=== PATIENT | male | born 1935 | race Caucasian/White ===

== ENCOUNTER 2017-01-27 06:54 | Outpatient (CLI) | payer MEDICARE, OTHER ==
[2017-01-27 07:40] LABS: ALBUMIN/GLOBULIN RATIO 1.5 (1.0-2.2); BILIRUBIN,TOTAL 0.9 mg/dL (0.2-1.0); CALCIUM 9.1 mg/dL (8.5-10.3); CREATININE 1.1 mg/dL (0.6-1.2); POTASSIUM 4.4 mmol/L (3.5-5.0); TOTAL PROTEIN 6.8 g/dL (6.7-8.2)
[2017-01-27] MEDS ORDERED: GADOBUTROL 10 MMOL/10 ML SYRINGE IVP ONE (09:23)
--- NOTE | 2017-01-27 10:06 | MRI Preliminary Report ---
Exam: MRI Brain W/WO IMPRESSION: 1. Extensive bilateral holohemispheric subdural hematoma. This is seen peripheral to the cerebral hem ispheres and in a parafalcine location bilaterally. Additionally bilateral posterior fossa subdural h ematomas are seen beneath the tentorium. This is slightly thicker on the left measuring up to 9 mm. A ppearance primarily suggests subacute hemorrhage, although there are layering fluid levels on the lef t side and acute bleeding is not excludable. -Mild, 5 mm, [id number] midline shift is seen. 2. Increased FLAIR signal seen in the sulci over the high convexity bilaterally. This may be due to p oor CSF flow versus hemorrhagic or proteinaceous debris within the CSF. 3. Patchy white matter signal abnormality in the cerebral hemispheres and brainstem. Findings are non specific but typically secondary to small vessel ischemic change. Critical test: With the layering fluid levels in the subdural hematoma, the possibility of active ble eding is not excludable. Therefore the patient is being sent to the emergency Department. The finding s are discussed with referring treating physician, Dr. Maya, on 01/27/2017 at 1004 hrs.. [facility] SITE ID: [id number]
--- NOTE | 2017-01-27 10:09 | MRI Report ---
EXAM: MRI BRAIN WITHOUT AND WITH CONTRAST EXAM DATE: 01/27/2017 09:35 AM. CLINICAL HISTORY: TRANSIENT CEREBRAL ISCHEMIA. TIA symptoms. 3 episodes of left-sided weakness, last approximately 2 weeks ago. COMPARISON: MRA of the head the 2016. TECHNIQUE: Multiplanar, multisequence T1-weighted and fluid-sensitive MR sequences of the brain were performed. Sequences optimized for routine evaluation. Other: None. Without and with IV Contrast: 10 cc Gadavist. FINDINGS: Brain Volume: Normal for age. Parenchyma/Dura: No masses, infarcts, or intra-axial hemorrhage. Mild diffuse patchy T2 and FLAIR jodee ght signal is seen throughout the cerebral hemispheres and centrally in the mid and lower pauly. No ab normal parenchymal enhancement. Ventricles/Cisterns: Extensive bilateral as well as infratentorial subdural hematomas are present. Se ptated subdural hematomas are seen in a holohemispheric location peripherally about the cerebral babak spheres and in a high parafalcine location bilaterally. On the left this measures up to approximately 9 mm in thickness and on the right 7.5 mm. Predominant diffuse T1 hyperintensity is seen. Peripheral linear enhancement is seen along the surface of the inner table of the skull. Heterogeneous T2 signa l is seen. Areas of hyperintense, isointense, and hypointense signal is present. Layering fluid level s are seen involving left-sided subdural collection. Mild, approximately 5 mm, [id number]-rt-[id number] midline shift is seen. Infratentorial involvement is seen beneath the tentorium bilaterally. On the right thi s measures approximately 4 mm in thickness and on the left 5 mm in thickness. Subtle mild inferior ex tension into the posterior CPA cistern is seen as well. No significant posterior fossa mass effect is appreciated, although there is effacement of the superior cerebellar hemispheres. No hydrocephalus. No intraventricular hemorrhage. On FLAIR imaging increased signal is seen within sulci over the high convexities bilaterally. No asso ciated signal abnormality or enhancement is seen in this region on any other pulse sequence. This cou ld be secondary to poor flow of CSF rather than indicative of hemorrhagic or proteinaceous debris wit hin the CSF. CSF signal intensity on FLAIR sequence at the skull base is unremarkable. Orbits: Note is made of bilateral lens removal. The globes, optic nerve sheath complex, extraocular m uscles, and orbital fat are unremarkable. Sella turcica: The pituitary gland, cavernous sinuses, suprasellar cistern, and optic chiasm are unre markable. IAC: The internal auditory canals are symmetric and unremarkable. Vasculature: Normal signal flow void is seen in the major arterial structures at the skull base. The dural sinuses are patent and enhance normally. The left transverse sinus and jugular bulb are dominan t. Sinuses: No sinusitis evident. Bones: The skull is intact. Other: Note is made of a 12 mm cystic focus in the superior posterior aspect of the right parotid gla nd. IMPRESSION: 1. Extensive bilateral holohemispheric subdural hematoma. This is seen peripheral to the cerebral hem ispheres and in a parafalcine location bilaterally. Additionally bilateral posterior fossa subdural h ematomas are seen beneath the tentorium. This is slightly thicker on the left measuring up to 9 mm. A ppearance primarily suggests subacute hemorrhage, although there are layering fluid levels on the lef t side and acute bleeding is not excludable. -Mild, 5 mm, rrqk-[id number] midline shift is seen. 2. Increased FLAIR signal seen in the sulci over the high convexity bilaterally. This may be due to p oor CSF flow versus hemorrhagic or proteinaceous debris within the CSF. 3. Patchy white matter signal abnormality in the cerebral hemispheres and brainstem. Findings are non specific but typically secondary to small vessel ischemic change. Critical test: With the layering fluid levels in the subdural hematoma, the possibility of active ble eding is not excludable. Therefore the patient is being sent to the emergency Department. The finding s are discussed with referring treating physician, Dr. Maya, on 01/27/2017 at 1004 hrs.. [facility] Referring Provider Line: [phone] SITE ID: [id number]
--- NOTE | 2017-01-27 10:09 | MRI Preliminary Report ---
Exam: MRI Angio Brain W/O (MRA) IMPRESSION: 1. Unremarkable brain MRA. No stenoses or aneurysms. [facility] SITE ID: [id number]
--- NOTE | 2017-01-27 10:12 | MRI Report ---
EXAM MRA BRAIN EXAM DATE: 01/27/2017 07:54 AM. CLINICAL HISTORY: TRANSIENT CEREBRAL ISCHEMIA. COMPARISON: None. TECHNIQUE: Multiplanar, multisequence MRA sequences of the brain were performed. Other: None. Post-pr ocessing: Multiplanar 3D MIP reconstructions. IV Contrast: None. FINDINGS: RIGHT Internal Carotid (ICA): No aneurysm, stenosis or anomaly. Middle Cerebral (MCA): No aneurysm, stenosis or anomaly. Anterior Cerebral (BECK): No aneurysm, stenosis or anomaly. Posterior Cerebral (WELL DRILL OPERATOR HELPER CABLE TOOL): No aneurysm, stenosis or anomaly. Posterior Communicating (P-COM): Not visualized. Vertebral: No aneurysm, stenosis or anomaly in the visualized upper vertebral artery. LEFT Internal Carotid (ICA): No aneurysm, stenosis or anomaly. Middle Cerebral (MCA): No aneurysm, stenosis or anomaly. Anterior Cerebral (BECK): No aneurysm, stenosis or anomaly. Posterior Cerebral (WELL DRILL OPERATOR HELPER CABLE TOOL): No aneurysm, stenosis or anomaly. Posterior Communicating (P-COM): Not visualized. Vertebral: No aneurysm, stenosis or anomaly in the visualized upper vertebral artery. Artifact signal drop off is seen in the V4 segment secondary to tortuosity. MIDLINE Anterior Communicating (A-COM): No aneurysm, stenosis or anomaly. Basilar artery: No aneurysm, stenosis or anomaly. Other: Bilateral supratentorial and infratentorial subdural hematomas are evident (see report of viry morales MRI done at the same time). IMPRESSION: 1. Unremarkable brain MRA. No stenoses or aneurysms. [facility] Referring Provider Line: [phone] SITE ID: [id number]
== END 2017-01-27 06:55 | disposition home or self-care (01) ==
LOC: LAB 06:54
PROVIDERS: ATTEND Family Medicine
DX: I62.00 Nontraumatic subdural hemorrhage, unspecified (principal)
CPT/HCPCS: 36415; 70544; 70553; 80053

== ENCOUNTER 2017-01-27 09:51 | Emergency (ER) | payer MEDICARE, OTHER ==
[2017-01-27] MEDS ORDERED: LOSARTAN 50 MG TABLET PO STA (10:28)
[2017-01-27] MEDS ORDERED: DOXAZOSIN 1 MG TABLET PO STA (10:29)
--- NOTE | 2017-01-27 10:30 | ED Physician Documentation ---
History of Present Illness - Stated complaint Stated Complaint: F/U MRI - Chief complaint Chief Complaint: Neuro - History obtained from History obtained from: Patient, Family - History of Present Illness Timing: Today - Additonal information Additional information: 81 y/o male with a history of diabetes and hypertension on coumadin for afib has had TIA symptoms 2 weeks ago and again 8 days ago. He has had his INR checked and it was OK and his doctor ordered a brain MRA and MRI and the MRI shows extensive bilateral subdural that appears subacute but with one area of layering consistent with acute bleeding. The patient was here for the MRI scan and was transferred to the ED with the results. He notes that he feels he recovered from the TIA and has not developed new symptoms. 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 He recalls that prior to the onset of symptoms he had been sanding out on his deck for an extended period of time. He notes that he has also had a surgical procedure done at the end of December with a ventral hernia repair. Review of Systems Constitutional: reports: Fatigue. denies: Fever, Chills, Myalgias Eyes: denies: Decreased vision Ears: denies: Ear pain Nose: denies: Congestion Throat: denies: Sore throat Cardiac: denies: Chest pain / pressure, Palpitations Respiratory: denies: Dyspnea, Cough GI: denies: Abdominal Pain, Nausea, Vomiting, Constipation, Diarrhea : denies: Dysuria, Frequency Skin: denies: Rash Musculoskeletal: reports: Neck pain (chronically), Back pain Neurologic: denies: Generalized weakness, Focal weakness, Numbness, Head injury , LOC PD PAST MEDICAL HISTORY - Past Medical History Cardiovascular: Hypertension, Atrial fibrillation Respiratory: None Neuro: None Endocrine/Autoimmune: None Psych: None Musculoskeletal: Osteoarthritis, Other - Present Medications Home Medications: Ambulatory Orders Medication Instructions Recorded Confirmed Allopurinol 2 tab ORAL DAILY 04/28/14 01/27/17 Doxazosin [Cardura] 8 mg ORAL DAILY 04/28/14 01/27/17 Furosemide 40 mg ORAL DAILY 04/28/14 01/27/17 Gabapentin 600 mg ORAL QPM 04/28/14 01/27/17 Losartan [Cozaar] 50 mg ORAL DAILY 04/28/14 01/27/17 Simvastatin 10 mg ORAL DAILY 04/28/14 01/27/17 Spironolactone 25 mg ORAL DAILY 04/28/14 01/27/17 Warfarin [Coumadin] 0 tab PO DAILY 01/27/17 01/27/17 - Allergies Allergies/Adverse Reactions: Allergies Allergy/AdvReac Type Severity Reaction Status Date / Time No Known Drug Allergies Allergy Verified 01/27/17 09:57 - Social History Does the pt smoke?: No Smoking Status: Unknown if ever smoked PD ED PE NORMAL - Vitals Vital signs reviewed: Yes (normal ) - General General: No acute distress, Well developed/nourished - HEENT HEENT: Atraumatic, PERRL, EOMI, Ears normal, Moist mucous membranes - Neck Neck: Supple, no meningeal sign, No bony TTP - Cardiac Cardiac: Other (irregularly irregular ) - Respiratory Respiratory: No respiratory distress, Clear bilaterally - Abdomen Abdomen: Soft, Non tender - Back Back: No CVA TTP, No spinal TTP - Derm Derm: Normal color, No rash - Extremities Extremities: No deformity, No edema - Neuro Neuro: Alert and oriented X 3, setter off 2-12 intact, No motor deficit, No sensory deficit, Normal speech - Psych Psych: Normal mood, Normal affect Results - Vitals Vitals: Vital Signs - 24 hr 01/27/17 01/27/17 01/27/17 09:55 10:00 11:45 Temperature 36.4 C L Heart Rate 89 71 50 L Respiratory 18 16 18 Rate Blood Pressure 118/72 154/80 H 139/90 H O2 Saturation 99 96 97 Oxygen O2 Source Room air - EKG (time done) 1008 Rhythm: Atrial fibrillation Intervals: Wide QRS Ischemia: Q waves Compare to prior EKG: Old EKG unavailable Computer interpretation: Agree with computer - Labs Labs: Laboratory Tests 01/27/17 01/27/17 01/27/17 10:30 10:30 10:30 WBC 8.6 RBC 4.00 L Hgb 13.6 L Hct 39.9 L MCV 99.8 H MCH 34.0 H MCHC 34.0 RDW 13.8 Plt Count 167 MPV 8.9 Neut # 5.9 Lymph # 1.8 Walker # 0.6 Eos # 0.1 Baso # 0.1 Absolute Nucleated RBC 0.00 Nucleated RBCs 0.0 PT 24.0 H INR 2.1 H Sodium 137 Potassium 4.4 Chloride 102 Carbon Dioxide 27 Anion Gap 8.0 BUN 33 H Creatinine 1.0 Estimated GFR (MDRD) 72 L Glucose 102 H Calcium 9.2 Total Bilirubin 1.1 H AST 20 ALT 24 Alkaline Phosphatase 77 Troponin I Total Protein 6.8 Albumin 4.1 Globulin 2.7 Albumin/Globulin Ratio 1.5 Lipase 39 01/27/17 10:30 WBC RBC Hgb Hct MCV MCH MCHC RDW Plt Count MPV Neut # Lymph # Walker # Eos # Baso # Absolute Nucleated RBC Nucleated RBCs PT INR Sodium Potassium Chloride Carbon Dioxide Anion Gap BUN Creatinine Estimated GFR (MDRD) Glucose Calcium Total Bilirubin AST ALT Alkaline Phosphatase Troponin I < 0.04 Total Protein Albumin Globulin Albumin/Globulin Ratio Lipase - Rads (name of study) MRI head Radiology: Prelim report reviewed, See rad report (extensive bilateral holohemispheric subdural hematoma. see details of report) brain MRA Radiology: Prelim report reviewed (Impression: 1. Unremarkable brain MRI. No stenosis or aneurysms.), EMP read indepedently, See rad report Procedures - IVC sono (time) 1200 Bedside IVC sono: IVC measures (cm) (1.62), Euvolemia, Other (The right ventrical is enlarged consistent with pulmonary hypertension and the vessle does not collapse much with respiration.) PD MEDICAL DECISION MAKING - ED course Complexity details: reviewed old records, reviewed results, re-evaluated patient , considered differential, d/w patient, d/w family ED course: 81 y/o male on coumadin for afib has had recent TIA and has acute on subacute hemorrhage intracranially. He has a normal neuro exam today here in the ED. The transfer center at [facility] is consulted by phone and recommends administration of kcentra and transfer by [facility]. The patient is agreeable and without deficit. Departure - Departure Disposition: 02 Transfer Acute Care Hosp Clinical Impression: Intracranial hemorrhage
[2017-01-27] MEDS ORDERED: DOXAZOSIN 4 MG TABLET PO STA (10:33)
[2017-01-27 10:44] LABS: BASOPHILS # (AUTO) 0.1 10^3/uL (0.0-0.1); BASOPHILS % (AUTO) 0.8 %; EOSINOPHILS # (AUTO) 0.1 10^3/uL (0.0-0.7); EOSINOPHILS % (AUTO) 1.6 %; HCT - HEMATOCRIT 39.9 % (42.0-52.0); HGB - HEMOGLOBIN 13.6 g/dL (14.0-18.0); LYMPHOCYTES # (AUTO) 1.8 10^3/uL (1.5-3.5); LYMPHOCYTES % (AUTO) 21.5 %; MEAN CORPUSCULAR VOLUME 99.8 fL (80.0-94.0); MEAN PLATELET VOLUME 8.9 fL (7.4-11.4); MONOCYTES # (AUTO) 0.6 10^3/uL (0.0-1.0); MONOCYTES % (AUTO) 7.1 %; NEUTROPHILS # (AUTO) 5.9 10^3/uL (1.5-6.6); RED CELL DISTRIBUTION WIDTH 13.8 % (12.0-15.0); UNCORRECTED WHITE BLOOD COUNT 8.6 x10^3/uL; WHITE BLOOD COUNT 8.6 x10^3/uL (4.8-10.8)
[2017-01-27 10:50] LABS: INR 2.1 (0.8-1.2)
[2017-01-27 10:55] LABS: ALBUMIN/GLOBULIN RATIO 1.5 (1.0-2.2); BILIRUBIN,TOTAL 1.1 mg/dL (0.2-1.0); CALCIUM 9.2 mg/dL (8.5-10.3); POTASSIUM 4.4 mmol/L (3.5-5.0); TOTAL PROTEIN 6.8 g/dL (6.7-8.2)
[2017-01-27] MEDS ORDERED: PROTHROMBIN COMPLEX CONC 500 UNIT VIAL IVP STA ×2 (11:40→11:54)
[2017-01-27 11:45] VITALS: BP 139/90
== END 2017-01-27 12:18 | disposition short-term general hospital (02) ==
LOC: ED 09:51
DX: I62.01 Nontraumatic acute subdural hemorrhage (principal); I10 Essential (primary) hypertension; I48.91 Unspecified atrial fibrillation; Z79.01 Long term (current) use of anticoagulants; E11.9 Type 2 diabetes mellitus without complications; Z86.73 Personal history of transient ischemic attack (TIA), and cerebral infarction without residual deficits
CPT/HCPCS: 36415; 70544; 70553; 80053; 83690; 84484; 85025; 85610; 86900; 86901; 93005; 96374; 99284; 99285; A9270; A9585; C9132

== ENCOUNTER 2017-03-03 20:50 | Emergency (ER) | payer MEDICARE, OTHER ==
[2017-03-03] MEDS ORDERED: SULFAMETH/TRIMETH DS 800/160 MG TABLET PO STA (21:17)
[2017-03-03] MEDS ORDERED: CEPHALEXIN 250 MG CAPSULE PO STA (21:17)
--- NOTE | 2017-03-03 21:20 | ED Physician Documentation ---
PD HPI LOWER EXT INJURY - Stated complaint Stated Complaint: L FOOT WOUND - Chief complaint Chief Complaint: Wound - History obtained from History obtained from: Patient - History of Present Illness PD HPI LOW EXT INJURY LOCATION: Left (He has a chronic callus which is occasionally being addressed by a lidar scientist. This is on the bottom of the lateral left foot. Today he has had redness and swelling in that area without fever or chills.) Review of Systems Constitutional: denies: Fever, Chills Cardiac: denies: Chest pain / pressure, Palpitations Respiratory: denies: Dyspnea, Cough PD PAST MEDICAL HISTORY - Past Medical History Past Medical History: Yes Cardiovascular: Hypertension, Peripheral Vascular Disease, Atrial fibrillation Respiratory: None Neuro: None Endocrine/Autoimmune: None Psych: None Musculoskeletal: Osteoarthritis, Other - Past Surgical History Past Surgical History: Yes General: Hiatal hernia repair Ortho: Hip replacement, Knee replacement Neuro: Craniotomy HEENT: Tonsil/Adenoidectomy - Present Medications Home Medications: Ambulatory Orders Medication Instructions Recorded Confirmed Allopurinol 2 tab ORAL DAILY 04/28/14 03/03/17 Doxazosin [Cardura] 8 mg ORAL DAILY 04/28/14 03/03/17 Gabapentin 600 mg ORAL QPM 04/28/14 03/03/17 Cephalexin [Keflex] 500 mg PO QID #40 capsule 03/03/17 Magnesium 400 mg PO BID 03/03/17 03/03/17 Simvastatin 5 mg PO QPM 03/03/17 03/03/17 Sulfamethoxazole/Trimethoprim 1 each PO BID 10 Days 03/03/17 [Sulfamethoxazole-Tmp Ds Tablet] - Allergies Allergies/Adverse Reactions: Allergies Allergy/AdvReac Type Severity Reaction Status Date / Time No Known Drug Allergies Allergy Verified 01/27/17 09:57 - Social History Does the pt smoke?: No Smoking Status: Unknown if ever smoked Does the pt drink ETOH?: No Does the pt have substance abuse?: No - Immunizations Immunizations are current?: No Immunizations: TDAP >10years/unknown - POLST Patient has POLST: No PD ED PE NORMAL - Vitals Vital signs reviewed: Yes - General General: Alert and oriented X 3, No acute distress - Extremities Extremities: Other (Underneath the fifth metatarsal head on the plantar surface of the foot there is a callus with surrounding redness, but no purulent material to culture. Cellulitis goes about to the proximal fifth metatarsal.) - Neuro Neuro: Alert and oriented X 3, Normal speech - Psych Psych: Normal mood, Normal affect Results - Vitals Vitals: Vital Signs - 24 hr 03/03/17 20:56 Temperature 36.7 C Heart Rate 83 Respiratory 16 Rate Blood Pressure 172/79 H O2 Saturation 99 Oxygen O2 Source Room air PD MEDICAL DECISION MAKING - ED course ED course: 82-year-old gentleman with left foot cellulitis, limited at this juncture and will start Keflex and Bactrim. Departure - Departure Disposition: Home, Self Care Clinical Impression: Cellulitis of left foot Condition: Good Record reviewed to determine appropriate education?: Yes Instructions: Cellulitis Dc Prescriptions: Cephalexin [Keflex] 500 mg PO QID #40 capsule Sulfamethoxazole/Trimethoprim [Sulfamethoxazole-Tmp Ds Tablet] 1 each PO BID 10 Days Comments: Follow-up with your lidar scientist in 1 week. Return or see her sooner if worsening , not improving, or if running a fever. Your blood pressure was elevated today on check into the emergency department. This does not mean that you have hypertension, it is a common phenomenon to come to the emergency department and have elevated blood pressure. I recommend that she see her primary care physician within the week to have it rechecked when you are feeling better.
[2017-03-03] MEDS ORDERED: CEPHALEXIN 250 MG CAPSULE PO ONE (21:25)
[2017-03-03] MEDS ORDERED: SULFAMETH/TRIMETH DS 800/160 MG TABLET PO ONE (21:25)
[2017-03-03 21:28] VITALS: BP 146/80
== END 2017-03-03 21:34 | disposition home or self-care (01) ==
LOC: ED 20:50
DX: L03.116 Cellulitis of left lower limb (principal); L84 Corns and callosities; I10 Essential (primary) hypertension; I73.9 Peripheral vascular disease, unspecified; I48.91 Unspecified atrial fibrillation; M19.90 Unspecified osteoarthritis, unspecified site
CPT/HCPCS: 99283; A9270

== ENCOUNTER 2017-05-08 09:11 | Outpatient (CLI) | payer MEDICARE, OTHER | END 2017-05-08 09:12 | disposition home or self-care (01) | LOC: LAB.R 09:11 | PROVIDERS: ATTEND Physician Assistant Medical | DX: L03.116 Cellulitis of left lower limb (principal) | CPT/HCPCS: 87070; 87205 ==

== ENCOUNTER 2017-05-10 11:35 | Outpatient (CLI) | payer MEDICARE, OTHER ==
--- NOTE | 2017-05-10 12:33 | CT Report ---
CT BRAIN WITHOUT CONTRAST: 05/10/2017 CLINICAL INDICATION: History of intracranial hemorrhage. COMPARISON: MRI 01/27/2017. TECHNIQUE: Axial CT images of the brain were obtained without contrast. In accordance with CT protocol optimization, one or more of the following dose reduction techniques w ere utilized for this exam: automated exposure control, adjustment of mA and/or KV based on patient size, or use of iterative reconstructive technique. FINDINGS: Postoperative changes are noted in the left calvarium. The previously seen left greater t baez right subdural collections have resolved. Atrophy and chronic ischemic changes are present. No acute hemorrhage, mass effect, or midline shift is present. IMPRESSION: POSTOPERATIVE CHANGES. RESOLUTION OF PREVIOUSLY SEEN SUBDURAL HEMATOMAS. NO ACUTE HEMO RRHAGE. JOB #: [id number] EXT JOB #:[id number]
== END 2017-05-10 11:36 | disposition home or self-care (01) ==
LOC: DI 11:35
PROVIDERS: ATTEND Family Medicine
DX: I62.9 Nontraumatic intracranial hemorrhage, unspecified (principal)
CPT/HCPCS: 70450

== ENCOUNTER 2017-11-13 20:00 | Emergency (ER) | payer MEDICARE, OTHER ==
[2017-11-13 20:09] VITALS: BP 121/110
== END 2017-11-13 20:50 | disposition left against medical advice (07) ==
LOC: ED 20:00
DX: Z53.21 Procedure and treatment not carried out due to patient leaving prior to being seen by health care provider (principal)
CPT/HCPCS: 99281

== ENCOUNTER 2017-12-11 08:00 | Outpatient (CLI) | payer MEDICARE, OTHER ==
[2017-12-11 19:15] LABS: BASOPHILS % (AUTO) 0.8 %; EOSINOPHILS # (AUTO) 0.1 10^3/uL (0.0-0.7); EOSINOPHILS % (AUTO) 1.4 %; LYMPHOCYTES # (AUTO) 1.3 10^3/uL (1.5-3.5); LYMPHOCYTES % (AUTO) 20.9 %; MEAN CORPUSCULAR HEMOGLOBIN 32.7 pg (27.0-31.0); MEAN CORPUSCULAR HGB CONC 32.7 g/dL (32.0-36.0); MEAN CORPUSCULAR VOLUME 100.1 fL (80.0-94.0); MEAN PLATELET VOLUME 10.4 fL (7.4-11.4); MONOCYTES # (AUTO) 0.6 10^3/uL (0.0-1.0); MONOCYTES % (AUTO) 9.1 %; NEUTROPHILS # (AUTO) 4.2 10^3/uL (1.5-6.6); NEUTROPHILS % (AUTO) 67.8 %; PLT - PLATELET COUNT 102 10^3/uL (130-450); RED BLOOD COUNT 4.28 10^6/uL (4.70-6.10); WHITE BLOOD COUNT 6.3 x10^3/uL (4.8-10.8)
[2017-12-11 19:35] LABS: ALBUMIN/GLOBULIN RATIO 1.7 (1.0-2.2); BILIRUBIN,TOTAL 1.5 mg/dL (0.2-1.0); CALCIUM 8.6 mg/dL (8.5-10.3); CREATININE 0.9 mg/dL (0.6-1.2); TOTAL PROTEIN 6.3 g/dL (6.7-8.2)
== END 2017-12-11 08:01 | disposition home or self-care (01) ==
LOC: LAB.WCP 08:00
PROVIDERS: ATTEND Family Medicine
DX: I10 Essential (primary) hypertension (principal); I48.91 Unspecified atrial fibrillation; R60.0 Localized edema
CPT/HCPCS: 36415; 80053; 85025

== ENCOUNTER 2018-11-18 08:00 | Outpatient (CLI) | payer MEDICARE, OTHER ==
[2018-11-18 12:20] LABS: BASOPHILS % (AUTO) 0.5 %; EOSINOPHILS # (AUTO) 0.1 10^3/uL (0.0-0.7); EOSINOPHILS % (AUTO) 1.2 %; HGB - HEMOGLOBIN 13.1 g/dL (14.0-18.0); LYMPHOCYTES # (AUTO) 1.8 10^3/uL (1.5-3.5); LYMPHOCYTES % (AUTO) 21.6 %; MEAN CORPUSCULAR HEMOGLOBIN 34.3 pg (27.0-31.0); MEAN CORPUSCULAR HGB CONC 33.8 g/dL (32.0-36.0); MEAN CORPUSCULAR VOLUME 101.2 fL (80.0-94.0); MEAN PLATELET VOLUME 9.2 fL (7.4-11.4); MONOCYTES # (AUTO) 0.7 10^3/uL (0.0-1.0); MONOCYTES % (AUTO) 8.7 %; NEUTROPHILS # (AUTO) 5.7 10^3/uL (1.5-6.6); PLT - PLATELET COUNT 175 10^3/uL (130-450); RED BLOOD COUNT 3.83 10^6/uL (4.70-6.10); RED CELL DISTRIBUTION WIDTH 13.7 % (12.0-15.0); WHITE BLOOD COUNT 8.3 x10^3/uL (4.8-10.8)
[2018-11-18 13:05] LABS: ALBUMIN/GLOBULIN RATIO 1.4 (1.0-2.2); CALCIUM 8.7 mg/dL (8.5-10.3); CREATININE 1.1 mg/dL (0.6-1.2); TOTAL PROTEIN 6.9 g/dL (6.7-8.2)
== END 2018-11-18 23:59 | disposition home or self-care (01) ==
LOC: LAB.WCP 08:00
PROVIDERS: ATTEND Internal Medicine Cardiovascular Disease
DX: I48.91 Unspecified atrial fibrillation (principal); I42.9 Cardiomyopathy, unspecified
CPT/HCPCS: 36415; 80053; 84443; 85025

== ENCOUNTER 2019-03-26 22:34 | Outpatient (CLI) | payer MEDICARE, OTHER | END 2019-03-26 22:35 | disposition critical access hospital (66) | LOC: EMS 22:34 | PROVIDERS: ATTEND Surgery | DX: R53.1 Weakness (principal) | CPT/HCPCS: A0425; A0429 ==

== ENCOUNTER 2019-03-26 22:48 | Inpatient (IN) | payer MEDICARE, OTHER ==
[2019-03-26] MEDS ORDERED: SODIUM CHLORIDE 0.9% 1,000 ML IV ONE (23:08)
[2019-03-26 23:34] LABS: BASOPHILS % (AUTO) 0.1 %; EOSINOPHILS % (AUTO) 0.1 %; LYMPHOCYTES % (AUTO) 3.9 %; MEAN CORPUSCULAR HEMOGLOBIN 33.7 pg (27.0-31.0); MEAN CORPUSCULAR HGB CONC 32.6 g/dL (32.0-36.0); MEAN CORPUSCULAR VOLUME 103.4 fL (80.0-94.0); MEAN PLATELET VOLUME 10.3 fL (7.4-11.4); MONOCYTES % (AUTO) 6.4 %; NEUTROPHILS % (AUTO) 88.6 %; PLT - PLATELET COUNT 131 10^3/uL (130-450); RED BLOOD COUNT 3.56 10^6/uL (4.70-6.10); RED CELL DISTRIBUTION WIDTH 13.6 % (12.0-15.0); WHITE BLOOD COUNT 22.6 x10^3/uL (4.8-10.8)
[2019-03-26 23:37] LABS: ABNORMAL LYMPHS % (MANUAL) 0 %
[2019-03-26 23:47] LABS: ALBUMIN 3.6 g/dL (3.2-5.5); ALBUMIN/GLOBULIN RATIO 1.4 (1.0-2.2); BILIRUBIN,TOTAL 1.1 mg/dL (0.2-1.0); CALCIUM 8.2 mg/dL (8.5-10.3); CREATININE 1.4 mg/dL (0.6-1.2); TOTAL PROTEIN 6.1 g/dL (6.7-8.2)
[2019-03-26 23:56] LABS: BAND NEUTROPHILS % (MANUAL) 23 %; LYMPHOCYTES # (MANUAL) 0.7 10^3/uL (1.5-3.5); LYMPHOCYTES % (MANUAL) 3 %; METAMYELOCYTES % (MANUAL) 1 %; MONOCYTES # (MANUAL) 0.7 10^3/uL (0.0-1.0); RBC MORPHOLOGY (MULTIPLE) NORMAL APPEARANCE (NORMAL)
[2019-03-26 23:57] LABS: DIFFERENTIAL COMMENT MANUAL DIFFERENTIAL; PLATELET ESTIMATE, MANUAL DECREASED (<130,000) (NORMAL)
[2019-03-27] MEDS ORDERED: SODIUM CHLORIDE 0.9% 1,000 ML IV ONE (00:10)
[2019-03-27] MEDS ORDERED: VANCOMYCIN INJ 1.5 GM in SODIUM CHLORIDE 0.9% 500 ML IV STA (00:11)
[2019-03-27] MEDS ORDERED: PIPERACILLIN/TAZOBACTAM 3.375 GM in SODIUM CHLORIDE 0.9% MINIBAG 100 ML IV STA (00:13)
--- NOTE | 2019-03-27 00:13 | ED Physician Documentation ---
History of Present Illness - Stated complaint Stated Complaint: WEAKNESS - Chief complaint Chief Complaint: Neuro - History obtained from History obtained from: Patient, Family - History of Present Illness Timing: Today Pain level max: 0 Pain level now: 0 - Additonal information Additional information: 84-year-old male states that he had chills today. States he was shaking at home. States that he felt lightheaded like he was going to pass out. States that this is occurred to him before. No chest pain. No palpitations. No headache. No dyspnea. No focal neurological deficits. Nothing makes it better or worse. He states that his legs felt very heavy. Patient states that his initial blood pressure was 60/40 with EMS. Review of Systems Ten Systems: 10 systems reviewed and negative Constitutional: reports: Fever (felt hot today), Chills (rigors at home), Myalgias Nose: denies: Rhinorrhea / runny nose, Congestion Cardiac: denies: Chest pain / pressure Respiratory: denies: Cough GI: denies: Vomiting Skin: denies: Rash Musculoskeletal: denies: Neck pain, Back pain Neurologic: denies: Headache PD PAST MEDICAL HISTORY - Past Medical History Past Medical History: Yes Cardiovascular: Hypertension, High cholesterol, Peripheral Vascular Disease, Atrial fibrillation Respiratory: None Endocrine/Autoimmune: None Psych: None Musculoskeletal: Osteoarthritis, Other - Past Surgical History Past Surgical History: Yes General: Hiatal hernia repair Ortho: Hip replacement, Knee replacement Neuro: Craniotomy HEENT: Tonsil/Adenoidectomy - Present Medications Home Medications: Ambulatory Orders Medication Instructions Recorded Confirmed Allopurinol 2 tab ORAL DAILY 04/28/14 03/03/17 Doxazosin [Cardura] 8 mg ORAL DAILY 04/28/14 03/03/17 Magnesium 400 mg PO BID 03/03/17 03/03/17 Simvastatin 20 mg PO QPM 03/03/17 03/03/17 Furosemide 50 mg PO DAILY 03/26/19 03/26/19 Warfarin [Coumadin] 03/26/19 - Allergies Allergies/Adverse Reactions: Allergies Allergy/AdvReac Type Severity Reaction Status Date / Time No Known Drug Allergies Allergy Verified 03/26/19 22:59 - Social History Does the pt smoke?: No Smoking Status: Never smoker Does the pt drink ETOH?: No Does the pt have substance abuse?: No - Immunizations Immunizations are current?: No Immunizations: TDAP >10years/unknown - POLST Patient has POLST: No PD ED PE NORMAL - Vitals Vital signs reviewed: Yes - General General: Alert and oriented X 3, No acute distress, Well developed/nourished - HEENT HEENT: PERRL, Moist mucous membranes - Neck Neck: Supple, no meningeal sign - Cardiac Cardiac: RRR, No murmur, Other - Respiratory Respiratory: No respiratory distress, Clear bilaterally - Abdomen Abdomen: Soft, Non tender, Non distended - Derm Derm: Warm and dry - Extremities Extremities: No deformity, No edema, Other (RLE - redness, swelling, warmth to R calf. ) - Neuro Neuro: Alert and oriented X 3 - Psych Psych: Normal mood, Normal affect Results - Vitals Vitals: Vital Signs - 24 hr 03/26/19 03/26/19 03/27/19 22:57 23:59 00:11 Temperature 37 C 36.7 C Heart Rate 83 83 77 Respiratory 16 17 20 Rate Blood Pressure 91/50 L 90/49 L 96/60 O2 Saturation 97 96 95 03/27/19 03/27/19 00:41 01:00 Temperature 36.8 C 37 C Heart Rate 86 Respiratory 27 H 27 H Rate Blood Pressure 99/63 98/55 L O2 Saturation 97 97 Oxygen O2 Source Room air - EKG (time done) 2300 Rate: Rate (enter#) (75) Rhythm: Atrial fibrillation Vincent: Normal Intervals: LBBB - Labs Labs: Laboratory Tests 03/26/19 03/26/19 03/26/19 23:25 23:25 23:25 WBC 22.6 H RBC 3.56 L Hgb 12.0 L Hct 36.8 L MCV 103.4 H MCH 33.7 H MCHC 32.6 RDW 13.6 Plt Count 131 MPV 10.3 Neut # (Auto) Not Reportable Lymph # (Auto) Not Reportable Warrick # (Auto) Not Reportable Eos # (Auto) Not Reportable Baso # (Auto) Not Reportable Absolute Nucleated RBC Not Reportable Total Counted 100 Band Neuts % (Manual) 23 H Abnorm Lymph % (Manual) 0 Metamyelocytes % 1 H Nucleated RBC % Not Reportable Neutrophils # (Manual) 21.0 H Lymphocytes # (Manual) 0.7 L Monocytes # (Manual) 0.7 Eosinophils # (Manual) 0.0 Basophils # (Manual) 0.0 Differential Comment MANUAL DIFFERENTIAL Platelet Estimate DECREASED (<130,000) RBC Morph Micro Appear NORMAL APPEARANCE PT 40.0 H INR 3.6 H Sodium 136 Potassium 3.6 Chloride 102 Carbon Dioxide 22 Anion Gap 12.0 BUN 33 H Creatinine 1.4 H Estimated GFR (MDRD) 49 L Glucose 138 H Lactic Acid Calcium 8.2 L Total Bilirubin 1.1 H AST 29 ALT 30 Alkaline Phosphatase 57 Total Protein 6.1 L Albumin 3.6 Globulin 2.5 Albumin/Globulin Ratio 1.4 Lipase 30 03/27/19 00:20 WBC RBC Hgb Hct MCV MCH MCHC RDW Plt Count MPV Neut # (Auto) Lymph # (Auto) Warrick # (Auto) Eos # (Auto) Baso # (Auto) Absolute Nucleated RBC Total Counted Band Neuts % (Manual) Abnorm Lymph % (Manual) Metamyelocytes % Nucleated RBC % Neutrophils # (Manual) Lymphocytes # (Manual) Monocytes # (Manual) Eosinophils # (Manual) Basophils # (Manual) Differential Comment Platelet Estimate RBC Morph Micro Appear PT INR Sodium Potassium Chloride Carbon Dioxide Anion Gap BUN Creatinine Estimated GFR (MDRD) Glucose Lactic Acid 1.5 Calcium Total Bilirubin AST ALT Alkaline Phosphatase Total Protein Albumin Globulin Albumin/Globulin Ratio Lipase - Rads (name of study) cxr Radiology: Prelim report reviewed, EMP read contemporaneously, See rad report (Cardiomegaly and borderline pulmonary vascular congestion. ) PD MEDICAL DECISION MAKING - ED course Complexity details: reviewed results, re-evaluated patient, considered different ial, d/w patient, d/w family, d/w clinical sales consultant ED course: 84-year-old male with right lower extremity cellulitis. Significant leukocytosis. Rigors at home. Normal lactate. Symptoms still consistent with sepsis. Given IV fluids and IV antibiotics. Blood cultures drawn. Discussed the case with Dr. Smith, hospitalist who accepts This document was made in part using voice recognition software. While efforts are made to proofread this document, sound alike and grammatical errors may occur. - Sepsis Event Current Stage of Sepsis: Sepsis Initial Hypotension: SBP drop more than 40 mmHg from baseline Possible source of Sepsis: Skin/soft tissue Mental/Cognitive Status: Alert/Oriented X3 Reason for not giving 30ml/kg crystalloid fluids: Patient has heart failure, Fluid overload potential Capillary refill: Less than 2 seconds Peripheral Pulse Strength: 3+ Normal Peripheral Pulse Location: Radial Bedside ultrasound performed: No Departure - Departure Disposition: 66 [facility] DC/Xfer Clinical Impression: Cellulitis of right leg Sepsis Qualifiers: Sepsis type: sepsis due to unspecified organism Sepsis acute organ dysfunction status: with acute organ dysfunction Severe sepsis acute organ dysfunction type: acute renal failure Acute renal failure type: unspecified Severe sepsis shock status: without septic shock Qualified Code(s): A41.9 - Sepsis, unspecified organism; R65.20 - Severe sepsis without septic shock; N17.9 - Acute kidney failure, unspecified Hypotension Qualifiers: Hypotension type: unspecified hypotension type Qualified Code(s): I95.9 - Hypotension, unspecified Leukocytosis Qualifiers: Leukocytosis type: unspecified Qualified Code(s): D72.829 - Elevated white blood cell count, unspecified Condition: Stable Discharge Date/Time: 03/27/19 01:54
[2019-03-27 00:22] LABS: INR 3.6 (0.8-1.2)
[2019-03-27] MEDS ORDERED: SODIUM CHLORIDE FLUSH 0.9% 10 ML SYRINGE IVP PRN (01:11)
[2019-03-27] MEDS ORDERED: ACETAMINOPHEN 325 MG TABLET PO PRN (01:11)
--- NOTE | 2019-03-27 01:55 | HISTORY & PHYSICAL EXAMINATION ---
Chief Complaint - Chief Complaint Chief Complaint: hypotensive, rigors History of Present Illness - Admitted From Admitted From:: [facility] ED - History Obtained From Records Reviewed: yes History obtained from: patient - History of Present Illness HPI Comment/Other: Patient seen and examined on 03/27/19 at 0130am Patient is an 84 y/o male with CHF and Afib on coumadin who presented to the ED with hypotension and rigors. He checked his blood pressure at home and realized a SBP of 60. He also reported weakness and difficulty walking as a result. He normally gets around the house using a walker. In the ED he was found to have erythema on the distal half of his right lower extremity, sparing his foot. He also has a foul-smelling ulcer/wound on his second toe on the right foot. He was also found to have a WBC of 22. He denied chest pain, JEANNETTE, abd pain, n/v/d. As a result of his presentation, he is being admitted for further treatment. History - Past Medical History Cardiovascular: reports: Hypertension, High cholesterol, Peripheral Vascular Disease, Atrial fibrillation Respiratory: reports: None Neuro: reports: Other (Hx of intracranial hemorrhage with extraction of blood product) Endocrine/Autoimmune: reports: None Psych: reports: None Musculoskeletal: reports: Osteoarthritis, Other MRSA Hx?: No - Past Surgical History General: reports: Hiatal hernia repair Ortho: reports: Hip replacement (left), Knee replacement (right) Cardiovascular: reports: Cardiac catheterization Neuro: reports: Craniotomy HEENT: reports: Tonsil/Adenoidectomy - Family & Social History Family History Comment/Other: father: heart disease unspecified and diabetes. mother: Had an unspecified hematologic problem for which she needed blood transfusions Living arrangement: At home Living Situation: With spouse/s.o. Social History Notes: Denies alcohol, tobacco or illicit drugs. Uses a cane to get around at home - POLST Patient has POLST: No POLST Status: DNR Meds/Allgy - Home Medications Home Medications: Ambulatory Orders Medication Instructions Recorded Confirmed Allopurinol 2 tab ORAL DAILY 04/28/14 03/03/17 Doxazosin [Cardura] 8 mg ORAL DAILY 04/28/14 03/03/17 Magnesium 400 mg PO BID 03/03/17 03/03/17 Simvastatin 20 mg PO QPM 03/03/17 03/03/17 Furosemide 50 mg PO DAILY 03/26/19 03/26/19 Warfarin [Coumadin] 03/26/19 - Allergies Allergies/Adverse Reactions: Allergies Allergy/AdvReac Type Severity Reaction Status Date / Time No Known Drug Allergies Allergy Verified 03/26/19 22:59 Review of Systems - Constitutional Constitutional: reports: Chills, Weakness. denies: Fatigue, Fever, Poor appe tite, Diaphoresis, Night sweats - Eyes Eyes: denies: Amaurosis, Blurred vision, Vision loss, Dipolpia - Ears, Nose & Throat Ears, Nose & Throat: denies: Nasal pain, Sore throat, Hoarseness - Cardiovascular Cariovascular: reports: Irregular heart rate. denies: Palpitations, Chest pain, Edema, Lightheadedness, Syncope, Exertional dyspnea - Respiratory Respiratory: denies: Cough, Sputum production, Wheezing, Hemoptysis, Orthopnea, SOB at rest, SOB with exertion - Gastrointestinal Gastrointestinal: denies: Abdominal pain, Abdominal distention, Constipation, Diarrhea, Change in bowel habits, Nausea, Vomiting, Coffee grounds emesis, Reflux/heartburn - Genitourinary Genitourinary: denies: Dysuria, Frequency, Urgency, Hematuria - Musculoskeletal Musculoskeletal: denies: Muscle pain, Back pain, Muscle aches - Integumentary Integumentary: reports: Other (erythema in right lower extremity). denies: Pruritis, Lesions - Neurological Neurological: denies: Focal weakness, Headache, Dizziness, Numbness, Slurred speech - Psychiatric Psychiatric: denies: Depression, Anxiety - Endocrine Endocrine: denies: Polyuria, Polydypsia - Hematologic/Lymphatic Hematologic/Lymphatic: denies: Anemia, Bruising Prior Level of Functionality: Patient is independent of activities of daily living Exam - Vital Signs Vital Signs: Vital Signs x48h Temp Pulse Resp BP Pulse Ox 03/27/19 01:31 81 22 95/55 L 97 03/27/19 01:00 37 C 86 27 H 98/55 L 97 03/27/19 00:41 36.8 C 27 H 99/63 97 03/27/19 00:11 36.7 C 77 20 96/60 95 03/26/19 23:59 83 17 90/49 L 96 03/26/19 22:57 37 C 83 16 91/50 L 97 - Physical Exam General Appearance: positive: No acute distress, Alert Eyes Bilateral: positive: Normal inspection, PERRL, EOMI, No scleral icterus ENT: positive: ENT inspection nml, Dry mucous membranes Neck: positive: Nml inspection, No JVD, Trachea midline Respiratory: positive: Chest non-tender, No respiratory distress, Breath sounds nml. negative: Wheezes, Rales, Rhonchi Cardiovascular: positive: Irregularly irregular Abdomen: positive: Non-tender, Nml bowel sounds, No distention. negative: Guarding, Rebound Skin: positive: Other (erythema noted on distal half of right lower extremity) Extremities: positive: Non-tender, Full ROM, No pedal edema Neurologic/Psychiatric: positive: Oriented x3, CN's nml (2-12), Motor nml, Sensation nml Sepsis Event Note (H) - Evaluation Current Stage of Sepsis: Sepsis Possible source of Sepsis: positive: Skin/soft tissue - Sepsis Criteria Sepsis Criteria: WBC count greater than 12,000 or less than 4000, SBP less than 90 mmHg Conclusion/Plan - Problem List (1) Sepsis Conclusion/Plan: 2/2 right lower extremity cellulities Blood cultures drawn. Tylenol for fever. IV hydration with normal saline at 150ml/hr Patient started on vancomycin and zosyn. Will continue Wound care consult for malodorous wound on right 2nd toe Qualifiers: Sepsis type: sepsis due to unspecified organism Sepsis acute organ dysfunction status: with acute organ dysfunction Severe sepsis acute organ dysfunction type: acute renal failure Acute renal failure type: unspecified Severe sepsis shock status: without septic shock Qualified Code(s): A41.9 - Sepsis, unspecified organism; R65.20 - Severe sepsis without septic shock; N17.9 - Acute kidney failure, unspecified (2) Cellulitis of left foot Conclusion/Plan: Treated as stated above with IV antibiotic and fluids Redness demarcated Awaiting blood cultures (3) CHF (congestive heart failure) Conclusion/Plan: Not in exacerbation. Last EF 40-45% per patient Will hold carvedilol and lasix while actively hydrating patient (4) Atrial fibrillation Conclusion/Plan: Rate control. INR 3.6. Will hold coumadin. Will monitor INR Will hold carvedilol due to hypotension Qualifiers: Atrial fibrillation type: chronic Qualified Code(s): I48.2 - Chronic atrial fibrillation (5) Hyperlipidemia Conclusion/Plan: On simvastatin (6) Acute renal failure Conclusion/Plan: Likely 2/2 sepsis Expect improvement with IV hydration. Will monitor Cr. Will hold lasix. - Lab Results Fish Bones: 03/27/19 05:25 03/27/19 05:25 Core Measures - Anticipated LOS I expect patient to be DC'd or transferred within 96 hours.: Yes - DVT/VTE - Prophylaxis VTE/DVT Device ordered at admit?: Yes VTE/DVT Prophylaxis med ordered at admit?: Yes
[2019-03-27] MEDS ORDERED: SODIUM CHLORIDE 0.9% 1,000 ML IV SCH ×3 (02:00→08:27)
[2019-03-27] MEDS ORDERED: VANCOMYCIN PER PHARMACY 100 GM in SODIUM CHLORIDE 0.9% 250 ML IV SCH (02:00)
--- NOTE | 2019-03-27 02:08 | XRAY Report ---
Reason: fever, chills Procedure Date: 03/27/2019 Accession Number: [id number] / [id number] Procedure: XR - Chest 1 View X-Ray CPT Code: 93491 FULL RESULT: EXAM: CHEST RADIOGRAPHY EXAM DATE: 03/27/2019 01:39 AM. CLINICAL HISTORY: Fever, chills. COMPARISON: 05/05/2015 2:12 PM. TECHNIQUE: 1 view. FINDINGS: Lungs/Pleura: No alveolar consolidation or pleural effusion seen. Pulmonary vascularity upper normal. No pneumothorax. Mediastinum: Within exam limitations, there is mild to moderate cardiomegaly. Aortic atherosclerosis. Other: Osteopenia. IMPRESSION: 1. Cardiomegaly and borderline pulmonary vascular congestion. RADIA
[2019-03-27 03:37] LABS: BILIRUBIN,URINE NEGATIVE (NEGATIVE); GLUCOSE, URINE (UA) NEGATIVE (NEGATIVE); KETONES,URINE (UA) NEGATIVE (NEGATIVE); LEUKOCYTE ESTERASE, URINE NEGATIVE (NEGATIVE); NITRITE,URINE NEGATIVE (NEGATIVE); OCCULT BLOOD,URINE TRACE-INTA (NEGATIVE); PROTEIN,URINE NEGATIVE (NEGATIVE); UROBILINOGEN,URINE 0.2 (NORMAL) E.U./dL (NORMAL)
[2019-03-27 03:39] LABS: CLARITY,URINE CLEAR (CLEAR)
[2019-03-27 05:33] LABS: BASOPHILS % (AUTO) 0.2 %; EOSINOPHILS % (AUTO) 0.4 %; HGB - HEMOGLOBIN 11.3 g/dL (14.0-18.0); LYMPHOCYTES % (AUTO) 5.5 %; MEAN CORPUSCULAR HGB CONC 33.3 g/dL (32.0-36.0); MEAN CORPUSCULAR VOLUME 102.1 fL (80.0-94.0); MONOCYTES % (AUTO) 5.4 %; NEUTROPHILS % (AUTO) 87.7 %; PLT - PLATELET COUNT 124 10^3/uL (130-450); RED BLOOD COUNT 3.32 10^6/uL (4.70-6.10); RED CELL DISTRIBUTION WIDTH 13.7 % (12.0-15.0); WHITE BLOOD COUNT 25.2 x10^3/uL (4.8-10.8)
[2019-03-27 05:42] LABS: ABNORMAL LYMPHS % (MANUAL) 0 %; CALCIUM 7.8 mg/dL (8.5-10.3); CREATININE 1.1 mg/dL (0.6-1.2)
[2019-03-27 06:01] LABS: BAND NEUTROPHILS % (MANUAL) 17 %; DIFFERENTIAL COMMENT MANUAL DIFFERENTIAL; LYMPHOCYTES # (MANUAL) 1.3 10^3/uL (1.5-3.5); LYMPHOCYTES % (MANUAL) 5 %; MONOCYTES # (MANUAL) 1.8 10^3/uL (0.0-1.0); PLATELET ESTIMATE, MANUAL DECREASED (<130,000) (NORMAL); RBC MORPHOLOGY (MULTIPLE) NORMAL APPEARANCE (NORMAL)
[2019-03-27] MEDS: PANTOPRAZOLE 40 MG TABLET PO SCH (06:34)
[2019-03-27] MEDS ORDERED: POTASSIUM CHLORIDE 20 MEQ TABLET PO ONE (07:10)
[2019-03-27] MEDS ORDERED: PIPERACILLIN/TAZOBACTAM 3.375 GM in SODIUM CHLORIDE 0.9% MINIBAG 100 ML IV SCH (08:00)
[2019-03-27] MEDS: POLYETHYLENE GLYCOL 3350 17 GM PACKET PO SCH (08:18)
[2019-03-27] MEDS: NYSTATIN POWDER 15 GM TOP SCH ×2 (08:19→23:57)
[2019-03-27] MEDS: ENOXAPARIN 40 MG/0.4 ML SYRINGE SUBQ SCH (08:21)
[2019-03-27] MEDS: SODIUM CHLORIDE FLUSH 0.9% 10 ML SYRINGE IVP SCH ×2 (08:22→16:24)
--- NOTE | 2019-03-27 12:23 | PROVIDER PROGRESS NOTE ---
Subjective - Prog Note Date Prog Note Date: 03/27/19 - Subjective Pt reports feeling: Improved Subjective: pt report he did feel better, his SBP is over 100. pt denies fever, chill, SOB or chest pain. Current Medications - Current Medications Current Medications: Active Medications Acetaminophen (Tylenol) 650 mg PO Q6HR PRN PRN Reason: fever Enoxaparin Sodium (Lovenox) 40 mg SUBQ DAILY [facility] Last Admin: 03/27/19 08:21 Dose: 40 mg Vancomycin HCl 1.25 gm/ Sodium (Chloride) 250 mls @ 166.667 mls/hr IV Q12H MARIA FERNANDA Sodium Chloride (Normal Saline 0.9%) 1,000 mls @ 100 mls/hr IV .Q10H [facility] Stop: 03/27/19 22:28 Lactobacillus Rhamnosus (Culturelle) 1 cap PO DAILY [facility] Multivitamins/Minerals (Theragran M) 1 tab PO DAILYWM [facility] Nystatin (Nystop) 1 applic TOP BID [facility] Last Admin: 03/27/19 08:19 Dose: 1 applic Pantoprazole Sodium (Protonix) 40 mg PO QDAC [facility] Last Admin: 03/27/19 06:34 Dose: Not Given Polyethylene Glycol (Miralax) 17 gm PO DAILY [facility] Last Admin: 03/27/19 08:18 Dose: 17 gm Sodium Chloride (Normal Saline Flush 0.9%) 10 ml IVP PRN PRN PRN Reason: NEEDED PER PROVIDER ORDERS Sodium Chloride (Normal Saline Flush 0.9%) 10 ml IVP 0100,0900,1700 [facility] Last Admin: 03/27/19 08:22 Dose: Not Given Allopurinol 2 tab ORAL DAILY 04/28/14 Doxazosin [Cardura] 8 mg ORAL DAILY 04/28/14 Magnesium 400 mg PO BID 03/03/17 Simvastatin 20 mg PO QPM 03/03/17 Furosemide 50 mg PO DAILY 03/26/19 Warfarin [Coumadin] 03/26/19 Objective - Vital Signs/Intake & Output Reviewed Vital Signs: Yes Vital Signs: Vital Signs x48h Temp Pulse Resp BP Pulse Ox 03/27/19 11:09 36.6 C 69 19 103/57 L 100 03/27/19 07:45 36.7 C 80 15 101/57 L 97 03/27/19 05:34 36.5 C 73 16 97/55 L 99 Intake & Output: Intake & Output 03/24/19 03/25/19 03/26/19 03/27/19 23:59 23:59 23:59 23:59 Intake Total 1000 1923.5 Output Total 350 Balance 1000 1573.5 - Objective General Appearance: positive: No acute distress, Alert. negative: Lethargic Eyes Bilateral: positive: Normal inspection, PERRL, No lid inflammation, Conjunctivae nml ENT: positive: ENT inspection nml, Pharynx nml, No signs of dehydration. negative: Purulent nasal drainage, Pharyngeal erythema, Oral lesions Neck: positive: Nml inspection, Thyroid nml, No JVD, Trachea midline. negative: Thyromegaly, Lymphadenopathy (R), Lymphadenopathy (L), Stiff neck, Swelling/bruising, Tracheal deviation Respiratory: positive: Chest non-tender, No respiratory distress, Breath sounds nml. negative: Wheezes, Rales, Rhonchi Cardiovascular: positive: Regular rate & rhythm, No murmur, No gallop. negative: Irregularly irregular, Extrasystoles, Tachycardia, Bradycardia, JVD present, Systolic murmur, Diastolic murmur Peripheral Pulses: 2+ Radial (R), 2+ Radial (L), 2+ Dorsalis pedis (R), 2+ Dorsalis pedis (L) Abdomen: positive: Non-tender, No organomegaly, Nml bowel sounds, No distention. negative: Tenderness, Guarding, Rebound Back: positive: Nml inspection. negative: CVA tenderness (R), CVA tenderness (L) Skin: positive: No rash, Warm, Dry, Skin rash. negative: Cyanosis, Diaphoresis, Pallor Extremities: positive: Non-tender, Full ROM, Nml appearance. negative: Calf tenderness, Joint swelling, Madelin's sign/cords Neurologic/Psychiatric: positive: Oriented x3, Sensation nml, Mood/affect nml. negative: Weakness, Sensory loss, Facial droop, Slurred/abnml speech, Depressed mood/affect - Lab Results Fish Bones: 03/27/19 05:25 03/27/19 05:25 Other Labs: Lab Results x24hrs 03/27/19 03/27/19 03/27/19 Range/Units 05:25 05:25 03:15 WBC 25.2 H (4.8-10.8) x10^3/uL RBC 3.32 L (4.70-6.10) 10^6/uL Hgb 11.3 L (14.0-18.0) g/dL Hct 33.9 L (42.0-52.0) % MCV 102.1 H (80.0-94.0) fL MCH 34.0 H (27.0-31.0) pg MCHC 33.3 (32.0-36.0) g/dL RDW 13.7 (12.0-15.0) % Plt Count 124 L (130-450) 10^3/uL MPV 10.0 (7.4-11.4) fL Neut # (Auto) Not Reportable Lymph # (Auto) Not Reportable [place] # (Auto) Not Reportable Eos # (Auto) Not Reportable Baso # (Auto) Not Reportable Absolute Nucleated RBC Not Reportable Total Counted 100 Band Neuts % (Manual) 17 H (0 - 10) % Abnorm Lymph % (Manual) 0 % Metamyelocytes % ( - 0) % Nucleated RBC % Not Reportable Neutrophils # (Manual) 22.2 H (1.5-6.6) 10^3/uL Lymphocytes # (Manual) 1.3 L (1.5-3.5) 10^3/uL Monocytes # (Manual) 1.8 H (0.0-1.0) 10^3/uL Eosinophils # (Manual) 0.0 (0-0.7) 10^3/uL Basophils # (Manual) 0.0 (0-0.1) 10^3/uL Differential Comment MANUAL DIFFERENTIAL Platelet Estimate DECREASED (<130,000) (NORMAL) RBC Morph Micro Appear NORMAL APPEARANCE (NORMAL) PT (9.9-12.6) secs INR (0.8-1.2) Sodium 135 (135-145) mmol/L Potassium 3.4 L (3.5-5.0) mmol/L Chloride 106 (101-111) mmol/L Carbon Dioxide 20 L (21-32) mmol/L Anion Gap 9.0 (6-13) BUN 30 H (6-20) mg/dL Creatinine 1.1 (0.6-1.2) mg/dL Estimated GFR (MDRD) 64 L (>89) Glucose 123 H (70-100) mg/dL Lactic Acid (0.5-2.2) mmol/L Calcium 7.8 L (8.5-10.3) mg/dL Total Bilirubin (0.2-1.0) mg/dL AST (10-42) IU/L ALT (10-60) IU/L Alkaline Phosphatase (42-121) IU/L Total Protein (6.7-8.2) g/dL Albumin (3.2-5.5) g/dL Globulin (2.1-4.2) g/dL Albumin/Globulin Ratio (1.0-2.2) Lipase (22-51) U/L Urine Color YELLOW Urine Clarity CLEAR (CLEAR) Urine pH 5.0 (5.0-7.5) PH Ur Specific Foster 1.020 (1.002-1.030) Urine Protein NEGATIVE (NEGATIVE) mg/dL Urine Glucose (UA) NEGATIVE (NEGATIVE) mg/dL Urine Ketones NEGATIVE (NEGATIVE) mg/dL Urine Occult Blood TRACE-INTA (NEGATIVE) Urine Nitrite NEGATIVE (NEGATIVE) Urine Bilirubin NEGATIVE (NEGATIVE) Urine Urobilinogen 0.2 (NORMAL) (NORMAL) E.U./dL Ur Leukocyte Esterase NEGATIVE (NEGATIVE) Ur Microscopic Review NOT INDICATED Urine Culture Comments NOT INDICATED 03/27/19 03/26/19 03/26/19 Range/Units 00:20 23:25 23:25 WBC (4.8-10.8) x10^3/uL RBC (4.70-6.10) 10^6/uL Hgb (14.0-18.0) g/dL Hct (42.0-52.0) % MCV (80.0-94.0) fL MCH (27.0-31.0) pg MCHC (32.0-36.0) g/dL RDW (12.0-15.0) % Plt Count (130-450) 10^3/uL MPV (7.4-11.4) fL Neut # (Auto) Lymph # (Auto) [place] # (Auto) Eos # (Auto) Baso # (Auto) Absolute Nucleated RBC Total Counted Band Neuts % (Manual) (0 - 10) % Abnorm Lymph % (Manual) % Metamyelocytes % ( - 0) % Nucleated RBC % Neutrophils # (Manual) (1.5-6.6) 10^3/uL Lymphocytes # (Manual) (1.5-3.5) 10^3/uL Monocytes # (Manual) (0.0-1.0) 10^3/uL Eosinophils # (Manual) (0-0.7) 10^3/uL Basophils # (Manual) (0-0.1) 10^3/uL Differential Comment Platelet Estimate (NORMAL) RBC Morph Micro Appear (NORMAL) PT 40.0 H (9.9-12.6) secs INR 3.6 H (0.8-1.2) Sodium 136 (135-145) mmol/L Potassium 3.6 (3.5-5.0) mmol/L Chloride 102 (101-111) mmol/L Carbon Dioxide 22 (21-32) mmol/L Anion Gap 12.0 (6-13) BUN 33 H (6-20) mg/dL Creatinine 1.4 H (0.6-1.2) mg/dL Estimated GFR (MDRD) 49 L (>89) Glucose 138 H (70-100) mg/dL Lactic Acid 1.5 (0.5-2.2) mmol/L Calcium 8.2 L (8.5-10.3) mg/dL Total Bilirubin 1.1 H (0.2-1.0) mg/dL AST 29 (10-42) IU/L ALT 30 (10-60) IU/L Alkaline Phosphatase 57 (42-121) IU/L Total Protein 6.1 L (6.7-8.2) g/dL Albumin 3.6 (3.2-5.5) g/dL Globulin 2.5 (2.1-4.2) g/dL Albumin/Globulin Ratio 1.4 (1.0-2.2) Lipase 30 (22-51) U/L Urine Color Urine Clarity (CLEAR) Urine pH (5.0-7.5) PH Ur Specific Foster (1.002-1.030) Urine Protein (NEGATIVE) mg/dL Urine Glucose (UA) (NEGATIVE) mg/dL Urine Ketones (NEGATIVE) mg/dL Urine Occult Blood (NEGATIVE) Urine Nitrite (NEGATIVE) Urine Bilirubin (NEGATIVE) Urine Urobilinogen (NORMAL) E.U./dL Ur Leukocyte Esterase (NEGATIVE) Ur Microscopic Review Urine Culture Comments 03/26/19 Range/Units 23:25 WBC 22.6 H (4.8-10.8) x10^3/uL RBC 3.56 L (4.70-6.10) 10^6/uL Hgb 12.0 L (14.0-18.0) g/dL Hct 36.8 L (42.0-52.0) % MCV 103.4 H (80.0-94.0) fL MCH 33.7 H (27.0-31.0) pg MCHC 32.6 (32.0-36.0) g/dL RDW 13.6 (12.0-15.0) % Plt Count 131 (130-450) 10^3/uL MPV 10.3 (7.4-11.4) fL Neut # (Auto) Not Reportable Lymph # (Auto) Not Reportable [place] # (Auto) Not Reportable Eos # (Auto) Not Reportable Baso # (Auto) Not Reportable Absolute Nucleated RBC Not Reportable Total Counted 100 Band Neuts % (Manual) 23 H (0 - 10) % Abnorm Lymph % (Manual) 0 % Metamyelocytes % 1 H ( - 0) % Nucleated RBC % Not Reportable Neutrophils # (Manual) 21.0 H (1.5-6.6) 10^3/uL Lymphocytes # (Manual) 0.7 L (1.5-3.5) 10^3/uL Monocytes # (Manual) 0.7 (0.0-1.0) 10^3/uL Eosinophils # (Manual) 0.0 (0-0.7) 10^3/uL Basophils # (Manual) 0.0 (0-0.1) 10^3/uL Differential Comment MANUAL DIFFERENTIAL Platelet Estimate DECREASED (<130,000) (NORMAL) RBC Morph Micro Appear NORMAL APPEARANCE (NORMAL) PT (9.9-12.6) secs INR (0.8-1.2) Sodium (135-145) mmol/L Potassium (3.5-5.0) mmol/L Chloride (101-111) mmol/L Carbon Dioxide (21-32) mmol/L Anion Gap (6-13) BUN (6-20) mg/dL Creatinine (0.6-1.2) mg/dL Estimated GFR (MDRD) (>89) Glucose (70-100) mg/dL Lactic Acid (0.5-2.2) mmol/L Calcium (8.5-10.3) mg/dL Total Bilirubin (0.2-1.0) mg/dL AST (10-42) IU/L ALT (10-60) IU/L Alkaline Phosphatase (42-121) IU/L Total Protein (6.7-8.2) g/dL Albumin (3.2-5.5) g/dL Globulin (2.1-4.2) g/dL Albumin/Globulin Ratio (1.0-2.2) Lipase (22-51) U/L Urine Color Urine Clarity (CLEAR) Urine pH (5.0-7.5) PH Ur Specific Foster (1.002-1.030) Urine Protein (NEGATIVE) mg/dL Urine Glucose (UA) (NEGATIVE) mg/dL Urine Ketones (NEGATIVE) mg/dL Urine Occult Blood (NEGATIVE) Urine Nitrite (NEGATIVE) Urine Bilirubin (NEGATIVE) Urine Urobilinogen (NORMAL) E.U./dL Ur Leukocyte Esterase (NEGATIVE) Ur Microscopic Review Urine Culture Comments ABX Reporting Has patient been on IV antibiotics over the past 48 hours?: Yes Sepsis Event Note (H) - Evaluation Current Stage of Sepsis: Sepsis Possible source of Sepsis: positive: Skin/soft tissue - Sepsis Criteria Sepsis Criteria: WBC count greater than 12,000 or less than 4000, SBP less than 90 mmHg Assessment/Plan - Problem List (1) Sepsis Impression: pt has septic shock with SBP around 60. blood culture is pending. the resource is likely form left leg cullulitis continue antibiotics Zosyn and Vancomycin continue tele and lab monitor continue gently IVF of NS (2) Cellulitis of left leg Conclusion/Plan: left leg still present warm but reduced tenderness. US of leg to r/o DVT continue antibiotics (3) diastolic CHF (congestive heart failure) Conclusion/Plan: today new ECHO reveals normal 60% EF but moderate abnormal right ventricle pr essure. but pt present septic shock, so pt require to have IVF. precaution order IVF of NS, consistently assess pt to prevention of fluid overload (4) Atrial fibrillation Conclusion/Plan: HR is controlled now. continue monitor Pt/INR to determine if pt start on his home Coumadin , hold BP meds now for pt's hypotensive (5) Hyperlipidemia Conclusion/Plan: On simvastatin (6) Acute renal failure Conclusion/Plan: improved significantly. today creatinine is 1.1, down from 1.4 yesterday. continue gently IVF and lab monitor (7) HTN but pt present hypotensive at admission due to septic shock. hold home BP meds, continue vital monitor Qualifiers: Sepsis type: sepsis due to unspecified organism Sepsis acute organ dysfunction status: with acute organ dysfunction Severe sepsis acute organ dysfunction type: acute renal failure Acute renal failure type: unspecified Severe sepsis shock status: without septic shock Qualified Code(s): A41.9 - Sepsis, unspecified organism; R65.20 - Severe sepsis without septic shock; N17.9 - Acute kidney failure, unspecified
[2019-03-27] MEDS: LACTOBACILLUS RHAMNOSUS GG CAPSULE PO SCH (12:38)
[2019-03-27] MEDS: MULTIVITAMIN W/MINERALS TABLET PO SCH (12:38)
[2019-03-27] MEDS: VANCOMYCIN INJ 1.25 GM in SODIUM CHLORIDE 0.9% 250 ML IV SCH (12:38)
[2019-03-27] MEDS: SODIUM CHLORIDE 0.9% 1,000 ML IV SCH ×2 (13:06→23:58)
[2019-03-27] MEDS ORDERED: MELATONIN 3 MG PO PRN (13:13)
[2019-03-27] MEDS ORDERED: NYSTATIN CREAM 15 GM TUBE TOP PRN (13:13)
[2019-03-27] MEDS ORDERED: DOCUSATE SODIUM 100 MG CAPSULE PO PRN (13:13)
[2019-03-27] MEDS ORDERED: CLOTRIMAZOLE/BETAMETHASONE 45 GM TUBE TOP PRN (13:13)
[2019-03-27 14:15] LABS: INR 3.8 (0.8-1.2); PT - PROTHROMBIN TIME 41.8 secs (9.9-12.6)
[2019-03-27] MEDS: PIPERACILLIN/TAZOBACTAM 3.375 GM in SODIUM CHLORIDE 0.9% MINIBAG 100 ML IV SCH ×2 (16:18→21:05)
--- NOTE | 2019-03-27 16:53 | Ultrasound Report ---
Reason: warm, tenderness, DVT? Procedure Date: 03/27/2019 Accession Number: [id number] / [id number] Procedure: US - Duplex Ext Veins Right CPT Code: FULL RESULT: EXAM: RIGHT LOWER EXTREMITY VENOUS ULTRASOUND EXAM DATE: 03/27/2019 04:43 PM. CLINICAL HISTORY: Warm, tenderness, DVT?. COMPARISON: None. TECHNIQUE: Real-time sonographic vascular imaging was performed by the accounts executive through the lower extremity utilizing both color-flow and Doppler spectral analysis. Multiple shipping services sales representative static images were saved for review. FINDINGS: Common Femoral Vein (CFV): Normal. CFV-GSV Junction: Normal. Profunda Femoral Vein (PFV): Normal. Femoral Vein (FV) Prox: Normal. Femoral Vein (FV) Mid: Normal. Femoral Vein (FV) Dist: Normal. Popliteal Vein: Normal. Posterior Tibial Veins: Normal. Peroneal Veins: Normal. Contralateral Side CFV: Normal. Other: None. IMPRESSION: No evidence for deep venous thrombosis in the right lower extremity. RADIA
--- NOTE | 2019-03-27 17:58 | XRAY Report ---
Reason: SOB, fever/chill Procedure Date: 03/27/2019 Accession Number: [id number] / [id number] Procedure: XR - Chest 1 View X-Ray CPT Code: 94341 FULL RESULT: EXAM: CHEST RADIOGRAPHY EXAM DATE: 03/27/2019 04:45 PM. CLINICAL HISTORY: Shortness of breath. Fever and chills. COMPARISON: CHEST 1 VIEW 03/27/2019 1:39 AM. TECHNIQUE: 1 view. FINDINGS: Lungs/Pleura: Hyperinflated lungs. No focal opacities evident. No pleural effusion. No pneumothorax. Mediastinum: Large heart with venous congestion. Other: None. IMPRESSION: 1. Clear hyperinflated lungs. 2. Stable cardiomegaly with venous congestion. RADIA
[2019-03-27] MEDS ORDERED: DOXAZOSIN 4 MG TABLET PO SCH (21:00)
[2019-03-27] MEDS ORDERED: SPIRONOLACTONE 25 MG TABLET PO SCH (21:00)
[2019-03-27] MEDS: CARVEDILOL 3.125 MG TABLET PO SCH (21:06)
[2019-03-28 00:52] LABS: VANCOMYCIN,RANDOM 16.2 ug/mL
[2019-03-28] MEDS ORDERED: VANCOMYCIN INJ 1.25 GM in SODIUM CHLORIDE 0.9% 250 ML IV SCH (01:00)
[2019-03-28] MEDS: SODIUM CHLORIDE FLUSH 0.9% 10 ML SYRINGE IVP SCH ×3 (01:06→17:41)
[2019-03-28] MEDS: VANCOMYCIN INJ 1.25 GM in SODIUM CHLORIDE 0.9% 250 ML IV SCH (01:06)
[2019-03-28] MEDS: PANTOPRAZOLE 40 MG TABLET PO SCH (02:45)
[2019-03-28] MEDS: PIPERACILLIN/TAZOBACTAM 3.375 GM in SODIUM CHLORIDE 0.9% MINIBAG 100 ML IV SCH ×4 (04:06→22:17)
[2019-03-28 05:34] LABS: INR 3.1 (0.8-1.2); PT - PROTHROMBIN TIME 34.4 secs (9.9-12.6)
[2019-03-28 05:35] LABS: BASOPHILS % (AUTO) 0.1 %; EOSINOPHILS % (AUTO) 0.1 %; HGB - HEMOGLOBIN 11.4 g/dL (14.0-18.0); LYMPHOCYTES % (AUTO) 6.1 %; MEAN CORPUSCULAR HEMOGLOBIN 34.1 pg (27.0-31.0); MEAN CORPUSCULAR HGB CONC 33.1 g/dL (32.0-36.0); MEAN PLATELET VOLUME 10.7 fL (7.4-11.4); MONOCYTES % (AUTO) 8.2 %; NEUTROPHILS % (AUTO) 84.2 %; PLT - PLATELET COUNT 115 10^3/uL (130-450); RED BLOOD COUNT 3.34 10^6/uL (4.70-6.10); RED CELL DISTRIBUTION WIDTH 13.9 % (12.0-15.0); WHITE BLOOD COUNT 18.7 x10^3/uL (4.8-10.8)
[2019-03-28 05:37] LABS: CALCIUM 7.9 mg/dL (8.5-10.3); CREATININE 1.2 mg/dL (0.6-1.2)
[2019-03-28 05:38] LABS: ABNORMAL LYMPHS % (MANUAL) 0 %
[2019-03-28 06:04] LABS: BAND NEUTROPHILS % (MANUAL) 6 %; DIFFERENTIAL COMMENT MANUAL DIFFERENTIAL; LYMPHOCYTES # (MANUAL) 0.6 10^3/uL (1.5-3.5); LYMPHOCYTES % (MANUAL) 3 %; MONOCYTES # (MANUAL) 1.3 10^3/uL (0.0-1.0); PLATELET ESTIMATE, MANUAL DECREASED (<130,000) (NORMAL); RBC MORPHOLOGY (MULTIPLE) NORMAL APPEARANCE (NORMAL)
[2019-03-28] MEDS: NYSTATIN POWDER 15 GM TOP SCH ×2 (09:00→20:35)
[2019-03-28] MEDS: ENOXAPARIN 40 MG/0.4 ML SYRINGE SUBQ SCH (09:07)
[2019-03-28] MEDS: LACTOBACILLUS RHAMNOSUS GG CAPSULE PO SCH (09:07)
[2019-03-28] MEDS: MULTIVITAMIN W/MINERALS TABLET PO SCH (09:07)
[2019-03-28] MEDS: CARVEDILOL 3.125 MG TABLET PO SCH ×2 (09:07→20:35)
[2019-03-28] MEDS: POLYETHYLENE GLYCOL 3350 17 GM PACKET PO SCH (09:08)
--- NOTE | 2019-03-28 11:13 | PROVIDER PROGRESS NOTE ---
Subjective - Prog Note Date Prog Note Date: 03/28/19 - Subjective Pt reports feeling: Improved Subjective: pt report he feel better, no fever on last night. he ate all his breakfast in the morning. pt denies chest pain, shortness of breath. Current Medications - Current Medications Current Medications: Active Medications Acetaminophen (Tylenol) 650 mg PO Q6HR PRN PRN Reason: fever Last Admin: 03/27/19 16:18 Dose: 650 mg Carvedilol (Coreg) 3.125 mg PO BID [facility] Last Admin: 03/28/19 09:07 Dose: 3.125 mg Clotrimazole (Lotrisone Cream) 1 applic TOP BID PRN PRN Reason: per pt yeast infx abd area Docusate Sodium (Colace 100mg Capsule) 100 mg PO BID PRN PRN Reason: Constipation Doxazosin Mesylate (Cardura) 8 mg PO QPM [facility] Enoxaparin Sodium (Lovenox) 40 mg SUBQ DAILY [facility] Last Admin: 03/28/19 09:07 Dose: 40 mg Vancomycin HCl 1.25 gm/ Sodium (Chloride) 250 mls @ 166.667 mls/hr IV Q12H [facility] Last Infusion: 03/28/19 02:43 Dose: Infused Piperacillin Sod/Tazobactam (Sod 3.375 gm/ Sodium Chloride) 100 mls @ 200 mls/hr IV Q6H [facility] Last Admin: 03/28/19 09:06 Dose: 200 mls/hr Sodium Chloride (Normal Saline 0.9%) 1,000 mls @ 75 mls/hr IV .[id number] [facility] Stop: 03/29/19 14:39 Lactobacillus Rhamnosus (Culturelle) 1 cap PO DAILY [facility] Last Admin: 03/28/19 09:07 Dose: 1 cap Multivitamins/Minerals (Theragran M) 1 tab PO DAILYWM [facility] Last Admin: 03/28/19 09:07 Dose: 1 tab Nystatin (Nystop) 1 applic TOP BID [facility] Last Admin: 03/27/19 23:57 Dose: Not Given Pantoprazole Sodium (Protonix) 40 mg PO QDAC [facility] Last Admin: 03/28/19 02:45 Dose: Not Given (Melatonin [ (Melatonin] 3 Mg)) 1 each PO QPM PRN PRN Reason: sleep Polyethylene Glycol (Miralax) 17 gm PO DAILY [facility] Last Admin: 03/28/19 09:08 Dose: 17 gm Sodium Chloride (Normal Saline Flush 0.9%) 10 ml IVP PRN PRN PRN Reason: NEEDED PER PROVIDER ORDERS Sodium Chloride (Normal Saline Flush 0.9%) 10 ml IVP 0100,0900,1700 [facility] Last Admin: 03/28/19 09:08 Dose: 10 ml Allopurinol 200 mg PO DAILY 04/28/14 Doxazosin [Cardura] 8 mg ORAL QPM 04/28/14 Simvastatin 10 mg PO QPM 03/03/17 Furosemide 40 mg PO DAILY 03/26/19 Warfarin [Coumadin] 10 mg PO MOFR 03/26/19 Carvedilol 3.125 mg PO BID 03/27/19 Clotrimazole/Betamethasone Dip [Clotrimazole-Betamethasone Crm] 1 applic TOP BID PRN 03/27/19 Docusate Sodium 100 mg PO BID PRN 03/27/19 Losartan [Cozaar] 50 mg PO QPM 03/27/19 Magnesium Oxide 400 mg PO BID 03/27/19 Melatonin 3 mg PO QPM PRN 03/27/19 Nystatin 1 applic TOP BID 03/27/19 Spironolactone 25 mg PO QPM 03/27/19 Warfarin [Coumadin] 7.5 mg PO SUTUWETHSA 03/27/19 Objective - Vital Signs/Intake & Output Reviewed Vital Signs: Yes Vital Signs: Vital Signs x48h Temp Pulse Resp BP Pulse Ox 03/28/19 07:53 36.7 C 65 20 102/61 96 03/28/19 05:25 37.0 C 97 16 111/56 L 99 Intake & Output: Intake & Output 03/25/19 03/26/19 03/27/19 03/28/19 23:59 23:59 23:59 23:59 Intake Total 1000 4644.5 1115 Output Total 350 Balance 1000 4294.5 1115 - Objective General Appearance: positive: No acute distress, Alert. negative: Lethargic Eyes Bilateral: positive: Normal inspection, PERRL, No lid inflammation, Conjunctivae nml ENT: positive: ENT inspection nml, Pharynx nml, No signs of dehydration. negative: Purulent nasal drainage, Pharyngeal erythema, Oral lesions Neck: positive: Nml inspection, Thyroid nml, No JVD, Trachea midline. negative: Thyromegaly, Lymphadenopathy (R), Lymphadenopathy (L), Stiff neck, Swelling/bruising, Tracheal deviation Respiratory: positive: Chest non-tender, No respiratory distress, Breath sounds nml. negative: Wheezes, Rales, Rhonchi Cardiovascular: positive: Regular rate & rhythm, No murmur, No gallop. negative: Irregularly irregular, Extrasystoles, Tachycardia, Bradycardia, JVD present, Systolic murmur, Diastolic murmur Peripheral Pulses: 2+ Radial (R), 2+ Radial (L), 2+ Dorsalis pedis (R), 2+ Dorsalis pedis (L) Abdomen: positive: Non-tender, No organomegaly, Nml bowel sounds, No distention. negative: Tenderness, Guarding, Rebound Back: positive: Nml inspection. negative: CVA tenderness (R), CVA tenderness (L) Skin: positive: Color nml, No rash, Warm, Dry. negative: Cyanosis, Diaphoresis, Pallor Extremities: positive: Non-tender, Full ROM, Nml appearance. negative: Calf tenderness, Joint swelling, Madelin's sign/cords Neurologic/Psychiatric: positive: Oriented x3, Motor nml, Sensation nml, Mood/affect nml. negative: Weakness, Sensory loss, Facial droop, Slurred/abnml speech, Depressed mood/affect - Lab Results Fish Bones: 03/28/19 05:10 03/28/19 05:10 Other Labs: Lab Results x24hrs 03/28/19 03/28/19 03/28/19 Range/Units 05:10 05:10 05:10 WBC 18.7 H (4.8-10.8) x10^3/uL RBC 3.34 L (4.70-6.10) 10^6/uL Hgb 11.4 L (14.0-18.0) g/dL Hct 34.4 L (42.0-52.0) % MCV 103.0 H (80.0-94.0) fL MCH 34.1 H (27.0-31.0) pg MCHC 33.1 (32.0-36.0) g/dL RDW 13.9 (12.0-15.0) % Plt Count 115 L (130-450) 10^3/uL MPV 10.7 (7.4-11.4) fL Neut # (Auto) Not Reportable Lymph # (Auto) Not Reportable [place] # (Auto) Not Reportable Eos # (Auto) Not Reportable Baso # (Auto) Not Reportable Absolute Nucleated RBC Not Reportable Total Counted 100 Band Neuts % (Manual) 6 (0 - 10) % Abnorm Lymph % (Manual) 0 % Nucleated RBC % Not Reportable Neutrophils # (Manual) 16.8 H (1.5-6.6) 10^3/uL Lymphocytes # (Manual) 0.6 L (1.5-3.5) 10^3/uL Monocytes # (Manual) 1.3 H (0.0-1.0) 10^3/uL Eosinophils # (Manual) 0.0 (0-0.7) 10^3/uL Basophils # (Manual) 0.0 (0-0.1) 10^3/uL Differential Comment MANUAL DIFFERENTIAL Platelet Estimate DECREASED (<130,000) (NORMAL) RBC Morph Micro Appear NORMAL APPEARANCE (NORMAL) PT 34.4 H (9.9-12.6) secs INR 3.1 H (0.8-1.2) Sodium 136 (135-145) mmol/L Potassium 3.7 (3.5-5.0) mmol/L Chloride 108 (101-111) mmol/L Carbon Dioxide 21 (21-32) mmol/L Anion Gap 7.0 (6-13) BUN 28 H (6-20) mg/dL Creatinine 1.2 (0.6-1.2) mg/dL Estimated GFR (MDRD) 58 L (>89) Glucose 118 H (70-100) mg/dL Calcium 7.9 L (8.5-10.3) mg/dL Last Dose Date Last Dose Time Random Vancomycin ug/mL 03/28/19 03/27/19 Range/Units 00:30 13:50 WBC (4.8-10.8) x10^3/uL RBC (4.70-6.10) 10^6/uL Hgb (14.0-18.0) g/dL Hct (42.0-52.0) % MCV (80.0-94.0) fL MCH (27.0-31.0) pg MCHC (32.0-36.0) g/dL RDW (12.0-15.0) % Plt Count (130-450) 10^3/uL MPV (7.4-11.4) fL Neut # (Auto) Lymph # (Auto) [place] # (Auto) Eos # (Auto) Baso # (Auto) Absolute Nucleated RBC Total Counted Band Neuts % (Manual) (0 - 10) % Abnorm Lymph % (Manual) % Nucleated RBC % Neutrophils # (Manual) (1.5-6.6) 10^3/uL Lymphocytes # (Manual) (1.5-3.5) 10^3/uL Monocytes # (Manual) (0.0-1.0) 10^3/uL Eosinophils # (Manual) (0-0.7) 10^3/uL Basophils # (Manual) (0-0.1) 10^3/uL Differential Comment Platelet Estimate (NORMAL) RBC Morph Micro Appear (NORMAL) PT 41.8 H (9.9-12.6) secs INR 3.8 H (0.8-1.2) Sodium (135-145) mmol/L Potassium (3.5-5.0) mmol/L Chloride (101-111) mmol/L Carbon Dioxide (21-32) mmol/L Anion Gap (6-13) BUN (6-20) mg/dL Creatinine (0.6-1.2) mg/dL Estimated GFR (MDRD) (>89) Glucose (70-100) mg/dL Calcium (8.5-10.3) mg/dL Last Dose Date UNKNOWN Last Dose Time UNKNOWN Random Vancomycin 16.2 ug/mL ABX Reporting Has patient been on IV antibiotics over the past 48 hours?: Yes Sepsis Event Note (H) - Evaluation Current Stage of Sepsis: Sepsis Possible source of Sepsis: positive: Skin/soft tissue - Sepsis Criteria Sepsis Criteria: WBC count greater than 12,000 or less than 4000, SBP less than 90 mmHg Assessment/Plan - Problem List (1) Sepsis Impression: 03/28 pt did not have fever on last night or today morning. his WBC is down to 18 from 25. erythema is reduced on left leg continue antibiotics Zosyn and Vanco continue tele and lab monitor continue gently IVF of NS pt has septic shock with SBP around 60. blood culture is pending. the resource is likely form left leg cullulitis continue antibiotics Zosyn and Vancomycin continue tele and lab monitor continue gently IVF of NS (2) Cellulitis of left leg Conclusion/Plan: 03/28 improved, his WBC is down to 18 from 25. erythema is reduced on left leg US of left leg does not indicate DVT continue antibiotics left leg still present warm but reduced tenderness. US of leg to r/o DVT continue antibiotics (3) diastolic CHF (congestive heart failure) Conclusion/Plan: today new ECHO reveals normal 60% EF but moderate abnormal right ventricle pressure. but pt present septic shock, so pt require to have IVF. precaution order IVF of NS, consistently assess pt to prevention of fluid overload (4) Atrial fibrillation Conclusion/Plan: HR is controlled now. continue monitor Pt/INR to determine if pt start on his home Coumadin , hold BP meds now for pt's hypotensive (5) Hyperlipidemia Conclusion/Plan: On simvastatin (6) Acute renal failure Conclusion/Plan: 03/28 improved and stable, creatinine is 1.2 today. improved significantly. today creatinine is 1.1, down from 1.4 yesterday. continue gently IVF and lab monitor (7) HTN but pt present hypotensive at admission due to septic shock. hold home BP meds, continue vital monitor Qualifiers: Sepsis type: sepsis due to unspecified organism Sepsis acute organ dysfunction status: with acute organ dysfunction Severe sepsis acute organ dysfunction type: acute renal failure Acute renal failure type: unspecified Severe sepsis shock status: without septic shock Qualified Code(s): A41.9 - Se psis, unspecified organism; R65.20 - Severe sepsis without septic shock; N17.9 - Acute kidney failure, unspecified
[2019-03-28] MEDS: SODIUM CHLORIDE 0.9% 1,000 ML IV SCH (12:04)
[2019-03-28] MEDS: VANCOMYCIN INJ 1 GM in SODIUM CHLORIDE 0.9% 250 ML IV SCH (12:05)
[2019-03-28] MEDS ORDERED: DOXAZOSIN 4 MG TABLET PO SCH (21:00)
[2019-03-29] MEDS: VANCOMYCIN INJ 1 GM in SODIUM CHLORIDE 0.9% 250 ML IV SCH ×2 (01:14→13:29)
[2019-03-29] MEDS: SODIUM CHLORIDE FLUSH 0.9% 10 ML SYRINGE IVP SCH ×3 (01:20→13:30)
[2019-03-29] MEDS: SODIUM CHLORIDE 0.9% 1,000 ML IV SCH (01:20)
[2019-03-29] MEDS: PIPERACILLIN/TAZOBACTAM 3.375 GM in SODIUM CHLORIDE 0.9% MINIBAG 100 ML IV SCH ×4 (04:17→21:58)
[2019-03-29] MEDS: PANTOPRAZOLE 40 MG TABLET PO SCH (04:20)
[2019-03-29 06:08] LABS: BASOPHILS % (AUTO) 0.2 %; EOSINOPHILS % (AUTO) 0.3 %; HGB - HEMOGLOBIN 10.6 g/dL (14.0-18.0); LYMPHOCYTES # (AUTO) 1.3 10^3/uL (1.5-3.5); MEAN CORPUSCULAR HEMOGLOBIN 34.9 pg (27.0-31.0); MEAN CORPUSCULAR HGB CONC 33.8 g/dL (32.0-36.0); MEAN CORPUSCULAR VOLUME 103.3 fL (80.0-94.0); MEAN PLATELET VOLUME 10.6 fL (7.4-11.4); MONOCYTES # (AUTO) 1.2 10^3/uL (0.0-1.0); MONOCYTES % (AUTO) 9.3 %; NEUTROPHILS # (AUTO) 10.3 10^3/uL (1.5-6.6); NEUTROPHILS % (AUTO) 79.2 %; PLT - PLATELET COUNT 123 10^3/uL (130-450); RED BLOOD COUNT 3.04 10^6/uL (4.70-6.10); RED CELL DISTRIBUTION WIDTH 13.6 % (12.0-15.0)
[2019-03-29 06:09] LABS: INR 1.8 (0.8-1.2); PT - PROTHROMBIN TIME 20.6 secs (9.9-12.6)
[2019-03-29 06:14] LABS: CALCIUM 7.8 mg/dL (8.5-10.3); CREATININE 0.9 mg/dL (0.6-1.2)
[2019-03-29] MEDS: LACTOBACILLUS RHAMNOSUS GG CAPSULE PO SCH (08:45)
[2019-03-29] MEDS: CARVEDILOL 3.125 MG TABLET PO SCH ×2 (08:45→21:13)
[2019-03-29] MEDS: ENOXAPARIN 40 MG/0.4 ML SYRINGE SUBQ SCH (08:45)
[2019-03-29] MEDS: MULTIVITAMIN W/MINERALS TABLET PO SCH (08:45)
[2019-03-29] MEDS: POLYETHYLENE GLYCOL 3350 17 GM PACKET PO SCH (08:48)
[2019-03-29] MEDS: NYSTATIN POWDER 15 GM TOP SCH ×2 (08:49→21:14)
[2019-03-29] MEDS ORDERED: WARFARIN 5 MG TABLET PO SCH (14:00)
--- NOTE | 2019-03-29 14:39 | PROVIDER PROGRESS NOTE ---
Subjective - Prog Note Date Prog Note Date: 03/29/19 - Subjective Pt reports feeling: Improved Subjective: pt report he feel better, no fever on last night. he report he has good appetite today. He denies other complaint. blood culture revealed in one tube gram negative bacilli. Current Medications - Current Medications Current Medications: Active Medications Acetaminophen (Tylenol) 650 mg PO Q6HR PRN PRN Reason: fever Last Admin: 03/27/19 16:18 Dose: 650 mg Carvedilol (Coreg) 3.125 mg PO BID MARIA FERNANDA Last Admin: 03/29/19 08:45 Dose: 3.125 mg Clotrimazole (Lotrisone Cream) 1 applic TOP BID PRN PRN Reason: per pt yeast infx abd area Docusate Sodium (Colace 100mg Capsule) 100 mg PO BID PRN PRN Reason: Constipation Last Admin: 03/28/19 12:05 Dose: 100 mg Enoxaparin Sodium (Lovenox) 40 mg SUBQ DAILY [facility] Last Admin: 03/29/19 08:45 Dose: 40 mg Piperacillin Sod/Tazobactam (Sod 3.375 gm/ Sodium Chloride) 100 mls @ 200 mls/hr IV Q6H [facility] Last Infusion: 03/29/19 10:42 Dose: Infused Vancomycin HCl 1 gm/ Sodium (Chloride) 250 mls @ 166.667 mls/hr IV Q12H [facility] Last Admin: 03/29/19 13:29 Dose: 167 mls/hr Lactobacillus Rhamnosus (Culturelle) 1 cap PO DAILY [facility] Last Admin: 03/29/19 08:45 Dose: 1 cap Multivitamins/Minerals (Theragran M) 1 tab PO DAILYWM MARIA FERNANDA Last Admin: 03/29/19 08:45 Dose: 1 tab Nystatin (Nystop) 1 applic TOP BID [facility] Last Admin: 03/29/19 08:49 Dose: 1 applic Pantoprazole Sodium (Protonix) 40 mg PO QDAC [facility] Last Admin: 03/29/19 04:20 Dose: Not Given (Melatonin [ (Melatonin] 3 Mg)) 1 each PO QPM PRN PRN Reason: sleep Polyethylene Glycol (Miralax) 17 gm PO DAILY [facility] Last Admin: 03/29/19 08:48 Dose: 17 gm Sodium Chloride (Normal Saline Flush 0.9%) 10 ml IVP PRN PRN PRN Reason: NEEDED PER PROVIDER ORDERS Sodium Chloride (Normal Saline Flush 0.9%) 10 ml IVP 0100,0900,1700 [facility] Last Admin: 03/29/19 13:30 Dose: 10 ml Warfarin Sodium (Coumadin) 7.5 mg PO SuTuWeThSa@1400 [facility] Last Admin: 03/29/19 13:53 Dose: 7.5 mg Warfarin Sodium (Coumadin) 10 mg PO MoFr@1400 [facility] Allopurinol 200 mg PO DAILY 04/28/14 Doxazosin [Cardura] 8 mg ORAL QPM 04/28/14 Simvastatin 10 mg PO QPM 03/03/17 Furosemide 40 mg PO DAILY 03/26/19 Warfarin [Coumadin] 10 mg PO MOFR 03/26/19 Carvedilol 3.125 mg PO BID 03/27/19 Clotrimazole/Betamethasone Dip [Clotrimazole-Betamethasone Crm] 1 applic TOP BID PRN 03/27/19 Docusate Sodium 100 mg PO BID PRN 03/27/19 Losartan [Cozaar] 50 mg PO QPM 03/27/19 Magnesium Oxide 400 mg PO BID 03/27/19 Melatonin 3 mg PO QPM PRN 03/27/19 Nystatin 1 applic TOP BID 03/27/19 Spironolactone 25 mg PO QPM 03/27/19 Warfarin [Coumadin] 7.5 mg PO SUTUWETHSA 03/27/19 Objective - Vital Signs/Intake & Output Reviewed Vital Signs: Yes Vital Signs: Vital Signs x48h Temp Pulse Resp BP Pulse Ox 03/29/19 11:08 36.7 C 75 18 103/55 L 98 03/29/19 08:01 36.6 C 77 18 118/72 95 Intake & Output: Intake & Output 03/26/19 03/27/19 03/28/19 03/29/19 23:59 23:59 23:59 23:59 Intake Total 1000 4644.5 3210 1591 Output Total 350 Balance 1000 4294.5 3210 1591 - Objective General Appearance: positive: No acute distress, Alert. negative: Lethargic Eyes Bilateral: positive: Normal inspection, PERRL, No lid inflammation, Conjunctivae nml ENT: positive: ENT inspection nml, Pharynx nml, No signs of dehydration. negative: Purulent nasal drainage, Pharyngeal erythema, Oral lesions Neck: positive: Nml inspection, Thyroid nml, No JVD. negative: Trachea midline, Thyromegaly, Lymphadenopathy (R), Lymphadenopathy (L), Stiff neck, Swelling/bruising, Tracheal deviation Respiratory: positive: Chest non-tender, No respiratory distress, Breath sounds nml. negative: Wheezes, Rales, Rhonchi Cardiovascular: positive: Regular rate & rhythm, No murmur, No gallop. nega tive: Irregularly irregular, Extrasystoles, Tachycardia, Bradycardia, JVD present, Systolic murmur, Diastolic murmur Peripheral Pulses: 2+ Radial (R), 2+ Radial (L), 2+ Dorsalis pedis (R), 2+ Dorsalis pedis (L) Abdomen: positive: Non-tender, No organomegaly, Nml bowel sounds, No distention. negative: Tenderness, Guarding, Rebound Back: positive: Nml inspection. negative: CVA tenderness (R), CVA tenderness (L) Skin: positive: Color nml, No rash, Warm, Dry. negative: Cyanosis, Diaphoresis, Pallor Extremities: positive: Non-tender, Nml appearance. negative: Calf tenderness, Joint swelling, Madelin's sign/cords Neurologic/Psychiatric: positive: Oriented x3, Sensation nml, Mood/affect nml. negative: Weakness, Sensory loss, Facial droop, Slurred/abnml speech, Depressed mood/affect - Lab Results Fish Bones: 03/29/19 05:50 03/29/19 05:50 Other Labs: Lab Results x24hrs 03/29/19 03/29/19 03/29/19 Range/Units 05:50 05:50 05:50 WBC 13.0 H (4.8-10.8) x10^3/uL RBC 3.04 L (4.70-6.10) 10^6/uL Hgb 10.6 L (14.0-18.0) g/dL Hct 31.4 L (42.0-52.0) % MCV 103.3 H (80.0-94.0) fL MCH 34.9 H (27.0-31.0) pg MCHC 33.8 (32.0-36.0) g/dL RDW 13.6 (12.0-15.0) % Plt Count 123 L (130-450) 10^3/uL MPV 10.6 (7.4-11.4) fL Neut # (Auto) 10.3 H (1.5-6.6) 10^3/uL Lymph # (Auto) 1.3 L (1.5-3.5) 10^3/uL [place] # (Auto) 1.2 H (0.0-1.0) 10^3/uL Eos # (Auto) 0.0 (0.0-0.7) 10^3/uL Baso # (Auto) 0.0 (0.0-0.1) 10^3/uL Absolute Nucleated RBC 0.00 x10^3/uL Nucleated RBC % 0.0 /100WBC PT 20.6 H (9.9-12.6) secs INR 1.8 H (0.8-1.2) Sodium 138 (135-145) mmol/L Potassium 3.8 (3.5-5.0) mmol/L Chloride 108 (101-111) mmol/L Carbon Dioxide 23 (21-32) mmol/L Anion Gap 7.0 (6-13) BUN 27 H (6-20) mg/dL Creatinine 0.9 (0.6-1.2) mg/dL Estimated GFR (MDRD) 81 L (>89) Glucose 111 H (70-100) mg/dL Calcium 7.8 L (8.5-10.3) mg/dL ABX Reporting Has patient been on IV antibiotics over the past 48 hours?: Yes Sepsis Event Note (H) - Evaluation Current Stage of Sepsis: Sepsis Possible source of Sepsis: positive: Skin/soft tissue - Sepsis Criteria Sepsis Criteria: WBC count greater than 12,000 or less than 4000, SBP less than 90 mmHg Assessment/Plan - Problem List (1) Sepsis Impression: 03/29 WBC is down to 13 from 18 on yesterday. continue antibiotics and vital monitor 03/28 pt did not have fever on last night or today morning. his WBC is down to 18 from 25. erythema is reduced on left leg continue antibiotics Zosyn and Vanco continue tele and lab monitor continue gently IVF of NS pt has septic shock with SBP around 60. blood culture is pending. the resource is likely form left leg cullulitis continue antibiotics Zosyn and Vancomycin continue tele and lab monitor continue gently IVF of NS (2) Cellulitis of left leg Conclusion/Plan: 03/29 clinic improved. warmth and erythema were reduced continue antibiotics 03/28 improved, his WBC is down to 18 from 25. erythema is reduced on left leg US of left leg does not indicate DVT continue antibiotics left leg still present warm but reduced tenderness. US of leg to r/o DVT continue antibiotics (3) diastolic CHF (congestive heart failure) Conclusion/Plan: today new ECHO reveals normal 60% EF but moderate abnormal right ventricle pressure. but pt present septic shock, so pt require to have IVF. precaution order IVF of NS, consistently assess pt to prevention of fluid overload (4) Atrial fibrillation Conclusion/Plan: HR is controlled now. continue monitor Pt/INR to determine if pt start on his home Coumadin , hold BP meds now for pt's hypotensive (5) Hyperlipidemia Conclusion/Plan: On simvastatin (6) Acute renal failure Conclusion/Plan: 03/29 improved. Creatinine is 0.9, continue lab monitor 03/28 improved and stable, creatinine is 1.2 today. improved significantly. today creatinine is 1.1, down from 1.4 yesterday. continue gently IVF and lab monitor (7) HTN but pt present hypotensive at admission due to septic shock. hold home BP meds, continue vital monitor (8) bacteremia one bottle of blood culture was positive for gram negative bacilli. pt has no more fever. second blood culture was negative. pt's WBC is down to 13. continue antibiotics, continue lab and vital monitor Qualifiers: Sepsis type: sepsis due to unspecified organism Sepsis acute organ dysfunction status: with acute organ dysfunction Severe sepsis acute organ dysfunction type: acute renal failure Acute renal failure type: unspecified Severe sepsis shock status: without septic shock Qualified Code(s): A41.9 - Sepsis, unspecified organism; R65.20 - Severe sepsis without septic shock; N17.9 - Acute kidney failure, unspecified
[2019-03-30] MEDS: SODIUM CHLORIDE FLUSH 0.9% 10 ML SYRINGE IVP SCH ×2 (00:27→09:11)
[2019-03-30] MEDS: VANCOMYCIN INJ 1 GM in SODIUM CHLORIDE 0.9% 250 ML IV SCH (00:27)
[2019-03-30] MEDS: PIPERACILLIN/TAZOBACTAM 3.375 GM in SODIUM CHLORIDE 0.9% MINIBAG 100 ML IV SCH ×2 (04:20→10:23)
[2019-03-30] MEDS: PANTOPRAZOLE 40 MG TABLET PO SCH (05:59)
[2019-03-30 06:55] LABS: BASOPHILS % (AUTO) 0.3 %; EOSINOPHILS # (AUTO) 0.1 10^3/uL (0.0-0.7); EOSINOPHILS % (AUTO) 0.9 %; HGB - HEMOGLOBIN 10.6 g/dL (14.0-18.0); LYMPHOCYTES # (AUTO) 1.1 10^3/uL (1.5-3.5); LYMPHOCYTES % (AUTO) 11.7 %; MEAN CORPUSCULAR HEMOGLOBIN 34.1 pg (27.0-31.0); MEAN CORPUSCULAR HGB CONC 32.9 g/dL (32.0-36.0); MEAN CORPUSCULAR VOLUME 103.5 fL (80.0-94.0); MEAN PLATELET VOLUME 10.9 fL (7.4-11.4); MONOCYTES % (AUTO) 10.6 %; NEUTROPHILS # (AUTO) 6.9 10^3/uL (1.5-6.6); NEUTROPHILS % (AUTO) 74.6 %; PLT - PLATELET COUNT 144 10^3/uL (130-450); RED BLOOD COUNT 3.11 10^6/uL (4.70-6.10); RED CELL DISTRIBUTION WIDTH 13.7 % (12.0-15.0); WHITE BLOOD COUNT 9.2 x10^3/uL (4.8-10.8)
[2019-03-30 07:02] LABS: INR 1.7 (0.8-1.2); PT - PROTHROMBIN TIME 19.6 secs (9.9-12.6)
[2019-03-30 07:03] LABS: CALCIUM 7.9 mg/dL (8.5-10.3)
[2019-03-30 07:27] VITALS: BP 122/79
[2019-03-30] MEDS: MULTIVITAMIN W/MINERALS TABLET PO SCH (09:11)
[2019-03-30] MEDS: LACTOBACILLUS RHAMNOSUS GG CAPSULE PO SCH (09:11)
[2019-03-30] MEDS: ENOXAPARIN 40 MG/0.4 ML SYRINGE SUBQ SCH (09:11)
[2019-03-30] MEDS: CARVEDILOL 3.125 MG TABLET PO SCH (09:11)
[2019-03-30] MEDS: POLYETHYLENE GLYCOL 3350 17 GM PACKET PO SCH (09:11)
[2019-03-30] MEDS: NYSTATIN POWDER 15 GM TOP SCH (09:13)
--- NOTE | 2019-03-30 10:43 | Discharge Plan ---
Discharge Plan Problem Reviewed?: Yes Disposition: Home, Self Care Condition: Poor Prescriptions: Cephalexin [Keflex] 500 mg PO BID #10 capsule Lactobacillus Rhamnosus GG [Culturelle] 1 cap PO DAILY #5 capsule Nystatin [Nystop] 1 applic TOP BID PRN #1 bottle PRN Reason: Itching Diet: Regular Activity Restrictions: Activity as Tolerated Shower Restrictions: No (fall precaution) Instruction Topics: Cephalexin tablets or capsules, Cellulitis [facility] Concerns: cellulitis, dehydration Plan of Treatment: continue to finish the antibiotics course. keep hydration when you are at home Care Goals: stabilization and improvement of your medical conditions. Assessment: assessment as the above Additional Instructions or Follow Up instructions: You may followup your PCP in one week, followup nurse's instruction for dressing change, and followup [facility] for wound care. Should your symptoms return or worsen, you may present ER or call 911 for help. Follow-Up Care: [facility] - Wound/Ostomy No Smoking: If you smoke, Please STOP! Call for help. Follow-up with: Francisco Maya MD [Primary Care Provider] -
--- NOTE | 2019-03-30 10:50 | DISCHARGE SUMMARY ---
Discharge Summary Discharge Date: 03/30/19 Discharging Provider: SIEGEL Primary Care Provider: Dr. Maya Condition at Discharge: Poor Discharge Disposition: 01 Home, Self Care Discharge Facility Name: home - DIAGNOSES Admission Diagnoses: (1) Sepsis (2) Cellulitis of left foot (3) CHF (congestive heart failure) (4) Atrial fibrillation (5) Hyperlipidemia (6) Acute renal failure Discharge Diagnoses with Status of Each Condition: (1) Sepsis resolved. (2) Cellulitis of left leg resolved (3) diastolic CHF (congestive heart failure) stable (4) Atrial fibrillation stable (5) Hyperlipidemia stable (6) Acute renal failure resolved/stable (7) HTN stable (8) bacteremia resolved - HPI History of Present Illness: refer from Dr. Smith's HPI on 03/27/19 Patient seen and examined on 03/27/19 at 0130am Patient is an 84 y/o male with CHF and Afib on coumadin who presented to the ED with hypotension and rigors. He checked his blood pressure at home and realized a SBP of 60. He also reported weakness and difficulty walking as a result. He normally gets around the house using a walker. In the ED he was found to have erythema on the distal half of his right lower extremity, sparing his foot. He also has a foul-smelling ulcer/wound on his second toe on the right foot. He was also found to have a WBC of 22. He denied chest pain, JEANNETTE, abd pain, n/v/d. As a result of his presentation, he is being admitted for further treatment. - HOSPITAL COURSE Hospital Course: pt was admitted for hypotension and rigors. pt was found to have sepsis with hypotension and significant elevated WBC, and cellulitis at his left lower extremities and ulcer at his left second toe. pt was treated with antibiotics. later day pt was found to have lower degree fever. pt was found to have bacteremia with bacteria gram negative bacilli at one tube of blood culture. Pt was evaluated and treated by wound provider. After treatment, pt's blood culture is negative, no more fever, and become hemodynamic stable, WBC became normal. pt is prescribed oral antibiotics to finish the course. the detail hospital course is as the below: (1) Sepsis resolved. pt was found to have hypotension and significant elevated WBC. pt is prescribed keflex to finish the treatment course. (2) Cellulitis of left leg resolved. pt is prescribed keflex to finish the treatment course. 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 continue home Coumadin. pt was advised to followup his PCP to check PT/INR in one week. (5) Hyperlipidemia continue home meds, simvastatin (6) Acute renal failure resolved. pt was advised to keep hydration. (7) HTN stable, continue home meds (8) bacteremia resolved. one bottle of blood culture was positive for gram negative bacilli. pt is prescribed antibiotics Keflex to finish the treatment course. - ALLERGIES Allergies/Adverse Reactions: Allergies Allergy/AdvReac Type Severity Reaction Status Date / Time No Known Drug Allergies Allergy Verified 03/26/19 22:59 - MEDICATIONS Home Medications: Ambulatory Orders Medication Instructions Recorded Confirmed Allopurinol 200 mg PO DAILY 04/28/14 03/27/19 Doxazosin [Cardura] 8 mg ORAL QPM 04/28/14 03/27/19 Simvastatin 10 mg PO QPM 03/03/17 03/27/19 Furosemide 40 mg PO DAILY 03/26/19 03/27/19 Warfarin [Coumadin] 10 mg PO MOFR 03/26/19 03/27/19 Carvedilol 3.125 mg PO BID 03/27/19 03/27/19 Clotrimazole/Betamethasone Dip 1 applic TOP BID PRN 03/27/19 03/27/19 [Clotrimazole-Betamethasone Crm] Docusate Sodium 100 mg PO BID PRN 03/27/19 03/27/19 Losartan [Cozaar] 50 mg PO QPM 03/27/19 03/27/19 Magnesium Oxide 400 mg PO BID 03/27/19 03/27/19 Melatonin 3 mg PO QPM PRN 03/27/19 03/27/19 Nystatin 1 applic TOP BID 03/27/19 03/27/19 Spironolactone 25 mg PO QPM 03/27/19 03/27/19 Warfarin [Coumadin] 7.5 mg PO SUTUWETHSA 03/27/19 03/27/19 Cephalexin [Keflex] 500 mg PO BID #10 capsule 03/30/19 Lactobacillus Rhamnosus GG 1 cap PO DAILY #5 capsule 03/30/19 [Culturelle] Nystatin [Nystop] 1 applic TOP BID PRN #1 bottle 03/30/19 - PHYSICAL EXAM AT DISCHARGE General Appearance: positive: No acute distress, Alert. negative: Lethargic Eyes Bilateral: positive: Normal inspection, PERRL, No lid inflammation, Conjunctivae nml ENT: positive: ENT inspection nml, Pharynx nml, No signs of dehydration. negative: Purulent nasal drainage, Pharyngeal erythema, Oral lesions Neck: positive: Nml inspection, Thyroid nml, No JVD, Trachea midline. negative: Thyromegaly, Lymphadenopathy (R), Lymphadenopathy (L), Stiff neck, Swelling/bruising, Tracheal deviation Respiratory: positive: Chest non-tender, No respiratory distress, Breath sounds nml. negative: Wheezes, Rales, Rhonchi Cardiovascular: positive: Regular rate & rhythm, No murmur, No gallop. ne gative: Irregularly irregular, Extrasystoles, Tachycardia, Bradycardia, JVD present, Systolic murmur, Diastolic murmur Peripheral Pulses: positive: 2+ Abdomen: positive: Non-tender, No organomegaly, Nml bowel sounds, No distention. negative: Tenderness, Guarding, Rebound Back: positive: Nml inspection. negative: CVA tenderness (R), CVA tenderness (L) Skin: positive: Color nml, No rash, Warm, Dry. negative: Cyanosis, Diaphoresis, Pallor, Skin rash Extremities: positive: Non-tender, Full ROM, Nml appearance. negative: Calf tenderness, Joint swelling, Madelin's sign/cords Neurologic/Psychiatric: positive: Oriented x3, Motor nml, Sensation nml, Mood/affect nml. negative: Weakness, Sensory loss, Facial droop, Slurred/abnml speech, Depressed mood/affect - LABS Result Diagrams: 03/30/19 06:23 03/30/19 06:23 - SEPSIS Current Stage of Sepsis: Sepsis Possible source of Sepsis: Skin/soft tissue Sepsis Criteria: WBC count greater than 12,000 or less than 4000, SBP less than 90 mmHg - FOLLOW UP Follow Up: continue to finish the antibiotics course. keep hydration when you are at home. followup with PCP in one week to check Pt/INR You may followup your PCP in one week, followup nurse's instruction for dressing change, and followup [facility] for wound care. Should your symptoms return or worsen, you may present ER or call 911 for help. - TIME SPENT Time Spent in Discharge (Minutes): 60
[2019-03-31] MEDS ORDERED: WARFARIN 5 MG TABLET PO SCH (14:00)
== END 2019-03-30 11:46 | disposition home or self-care (01) | DRG 871 ==
LOC: EDUNIT# → ED 22:48 → MS2 03-27 01:11
PROVIDERS: ADMIT Internal Medicine; ATTEND Nurse Practitioner Gerontology
DX: A41.59 Other Gram-negative sepsis (principal); R65.20 Severe sepsis without septic shock; R65.21 Severe sepsis with septic shock; I50.32 Chronic diastolic (congestive) heart failure; N17.9 Acute kidney failure, unspecified; I48.91 Unspecified atrial fibrillation; L03.115 Cellulitis of right lower limb; I50.9 Heart failure, unspecified; L97.515 Non-pressure chronic ulcer of other part of right foot with muscle involvement without evidence of necrosis; I11.0 Hypertensive heart disease with heart failure; E78.5 Hyperlipidemia, unspecified; I48.2 Chronic atrial fibrillation; I73.9 Peripheral vascular disease, unspecified; Z66 Do not resuscitate; Z79.01 Long term (current) use of anticoagulants; Z79.899 Other long term (current) drug therapy
CPT/HCPCS: 36415; 71045; 80048; 80053; 80202; 81003; 83605; 83690; 85025; 85610; 87040; 87077; 87181; 93005; 93306; 93971; 96361; 96365; 99283; 99285; A9270; J1650; J3370; 81001; 87086

== ENCOUNTER 2019-04-11 08:00 | Outpatient (CLI) | payer MEDICARE, OTHER ==
--- NOTE | 2019-04-13 23:41 | XRAY Report ---
Reason: RIGHT CHEST PAIN Procedure Date: 04/11/2019 Accession Number: [id number] / [id number] Procedure: WCP - Ribs w/PA Chest RT CPT Code: FULL RESULT: EXAM: RIGHT RIB RADIOGRAPHY EXAM DATE: 04/11/2019 02:59 PM. CLINICAL HISTORY: RIGHT CHEST PAIN. COMPARISON: CHEST 1 VIEW 03/27/2019 4:28 PM. TECHNIQUE: 1 view of the chest and 2 views of the ribs. FINDINGS: Bones: Bones are demineralized. This limits evaluation for rib fracture. No definite acute rib fracture is seen. A couple of old healed rib fracture deformities seen at the upper posterior lateral ribs. Healed rib fracture deformity suspected. Lungs: New small right pleural effusion. No pneumothorax is seen. Mediastinum: Stable cardiomegaly. IMPRESSION: New small right pleural effusion. Stable cardiomegaly. No definite acute rib fracture is seen. See above. RADIA
--- NOTE | 2019-04-13 23:47 | XRAY Report ---
Reason: RIGHT SHOULDER PAIN Procedure Date: 04/11/2019 Accession Number: [id number] / [id number] Procedure: WCP - Shoulder 2 View RT CPT Code: FULL RESULT: EXAM: RIGHT SHOULDER RADIOGRAPHY EXAM DATE: 04/11/2019 03:30 PM. CLINICAL HISTORY: RIGHT SHOULDER PAIN. COMPARISON: None. TECHNIQUE: 3 views. FINDINGS: No evidence for acute fracture or dislocation. Mild acromioclavicular and glenohumeral degenerative joint disease with osteophytes. Bones are demineralized. IMPRESSION: No evidence for acute fracture or dislocation. Mild acromioclavicular and glenohumeral degenerative joint disease with osteophytes. Bones are demineralized. RADIA
== END 2019-04-11 23:59 | disposition home or self-care (01) ==
LOC: DI.WCP 08:00 → EDSTATUS 13:31 → DI.WCP 23:59
PROVIDERS: ATTEND Family Medicine
DX: J90 Pleural effusion, not elsewhere classified (principal); I51.7 Cardiomegaly; M19.011 Primary osteoarthritis, right shoulder

== ENCOUNTER 2019-04-22 15:53 | Inpatient (IN) | payer MEDICARE, OTHER ==
[2019-04-22 16:39] LABS: BASOPHILS % (AUTO) 0.3 %; EOSINOPHILS # (AUTO) 0.2 10^3/uL (0.0-0.7); EOSINOPHILS % (AUTO) 1.7 %; HGB - HEMOGLOBIN 10.7 g/dL (14.0-18.0); LYMPHOCYTES # (AUTO) 1.7 10^3/uL (1.5-3.5); LYMPHOCYTES % (AUTO) 17.7 %; MEAN CORPUSCULAR HEMOGLOBIN 32.5 pg (27.0-31.0); MEAN CORPUSCULAR HGB CONC 31.4 g/dL (32.0-36.0); MEAN CORPUSCULAR VOLUME 103.6 fL (80.0-94.0); MEAN PLATELET VOLUME 8.8 fL (7.4-11.4); MONOCYTES # (AUTO) 0.7 10^3/uL (0.0-1.0); NEUTROPHILS # (AUTO) 7.1 10^3/uL (1.5-6.6); PLT - PLATELET COUNT 284 10^3/uL (130-450); RED BLOOD COUNT 3.29 10^6/uL (4.70-6.10); RED CELL DISTRIBUTION WIDTH 14.2 % (12.0-15.0); WHITE BLOOD COUNT 9.9 x10^3/uL (4.8-10.8)
[2019-04-22 16:47] LABS: ALBUMIN/GLOBULIN RATIO 0.8 (1.0-2.2); BILIRUBIN,TOTAL 0.5 mg/dL (0.2-1.0); CALCIUM 8.3 mg/dL (8.5-10.3); TOTAL PROTEIN 6.8 g/dL (6.7-8.2)
--- NOTE | 2019-04-22 16:56 | ED Physician Documentation ---
PD HPI ABD PAIN - Stated complaint Stated Complaint: RECTAL BLEED - Chief complaint Chief Complaint: Abd Pain - History obtained from History obtained from: Patient - History of Present Illness Timing - onset: Other (84-year-old gentleman with history of atrial fibrillation on warfarin. He has not had his INR checked in a couple of weeks. He has a history of lower GI bleeding, presumed diverticular from his description. Over the last hour or 2 he is had large volume dark red blood per rectum without rectal or abdominal pain. He is starting to feel dizzy with it.) Review of Systems Ten Systems: 10 systems reviewed and negative Constitutional: denies: Fever, Chills Cardiac: denies: Chest pain / pressure, Palpitations Respiratory: denies: Dyspnea, Cough GI: denies: Abdominal Pain, Nausea, Vomiting PD PAST MEDICAL HISTORY - Past Medical History Cardiovascular: Hypertension, High cholesterol, Peripheral Vascular Disease, Atrial fibrillation Respiratory: None Neuro: Other Endocrine/Autoimmune: None GI: None : None Psych: None Musculoskeletal: Osteoarthritis, Other Derm: None - Past Surgical History Past Surgical History: Yes General: Hiatal hernia repair Ortho: Hip replacement, Knee replacement Cardiovascular: Cardiac catheterization Neuro: Craniotomy HEENT: Tonsil/Adenoidectomy - Present Medications Home Medications: Ambulatory Orders Medication Instructions Recorded Confirmed RX: Allopurinol 200 mg PO DAILY 04/28/14 04/22/19 RX: Furosemide 40 mg PO DAILY 03/26/19 04/22/19 RX: Warfarin [Coumadin] 10 mg PO MOFR 03/26/19 03/27/19 RX: Carvedilol 3.125 mg PO BID 03/27/19 04/22/19 RX: Clotrimazole/Betamethasone Dip 1 applic TOP BID PRN 03/27/19 04/22/19 [Clotrimazole-Betamethasone Crm] RX: Docusate Sodium 100 mg PO BID PRN 03/27/19 04/22/19 RX: Losartan [Cozaar] 50 mg PO QPM 03/27/19 04/22/19 RX: Magnesium Oxide 400 mg PO BID 03/27/19 04/22/19 RX: Melatonin 3 mg PO QPM PRN 03/27/19 04/22/19 RX: Nystatin 1 applic TOP BID 03/27/19 04/22/19 RX: Spironolactone 25 mg PO DAILY 03/27/19 04/22/19 RX: Warfarin [Coumadin] 7.5 mg PO SUTUWETHSA 03/27/19 03/27/19 Doxazosin Mesylate 8 mg PO QPM 04/22/19 04/22/19 Simvastatin 10 mg PO QPM 04/22/19 04/22/19 - Allergies Allergies/Adverse Reactions: Allergies Allergy/AdvReac Type Severity Reaction Status Date / Time No Known Drug Allergies Allergy Verified 04/22/19 16:04 - Social History Does the pt smoke?: No Smoking Status: Never smoker Does the pt drink ETOH?: No Does the pt have substance abuse?: No - Family History Family history: reports: Non contributory - Immunizations Immunizations are current?: No Immunizations: TDAP >10years/unknown - POLST Patient has POLST: No POLST Status: DNR PD ED PE NORMAL - Vitals Vital signs reviewed: Yes - General General: Alert and oriented X 3, No acute distress, Other (He just had a large bloody bowel movements duration, went and looked in the toilet and it was opaque with blood.) - HEENT HEENT: PERRL, EOMI - Neck Neck: Supple, no meningeal sign, No bony TTP - Cardiac Cardiac: Other (Irregularly irregular) - Respiratory Respiratory: No respiratory distress, Clear bilaterally - Abdomen Abdomen: Normal bowel sounds, Soft, Non tender - Back Back: No CVA TTP, No spinal TTP, Other (Significant kyphosis) - Derm Derm: Normal color, Warm and dry - Extremities Extremities: No edema, No calf tenderness / cord - Neuro Neuro: Alert and oriented X 3, Normal speech Results - Vitals Vitals: Vital Signs - 24 hr 04/22/19 04/22/19 16:02 17:10 Temperature 36.8 C 36.5 C Heart Rate 91 70 Respiratory 20 20 Rate Blood Pressure 145/74 H 102/72 O2 Saturation 98 99 Oxygen O2 Source Room air - Labs Labs: Laboratory Tests 04/22/19 04/22/19 04/22/19 16:20 16:20 16:20 WBC 9.9 RBC 3.29 L Hgb 10.7 L Hct 34.1 L MCV 103.6 H MCH 32.5 H MCHC 31.4 L RDW 14.2 Plt Count 284 MPV 8.8 Neut # (Auto) 7.1 H Lymph # (Auto) 1.7 [place] # (Auto) 0.7 Eos # (Auto) 0.2 Baso # (Auto) 0.0 Absolute Nucleated RBC 0.00 Nucleated RBC % 0.0 PT > 120.0 H* INR > 10.0 H* APTT 87.6 H Sodium Potassium Chloride Carbon Dioxide Anion Gap BUN Creatinine Estimated GFR (MDRD) Glucose Calcium Total Bilirubin AST ALT Alkaline Phosphatase Total Protein Albumin Globulin Albumin/Globulin Ratio Lipase Blood Type O NEGATIVE Antibody Screen NEGATIVE Crossmatch IS Only See Detail 04/22/19 16:20 WBC RBC Hgb Hct MCV MCH MCHC RDW Plt Count MPV Neut # (Auto) Lymph # (Auto) [place] # (Auto) Eos # (Auto) Baso # (Auto) Absolute Nucleated RBC Nucleated RBC % PT INR APTT Sodium 138 Potassium 5.3 H Chloride 102 Carbon Dioxide 28 Anion Gap 8.0 BUN 24 H Creatinine 1.0 Estimated GFR (MDRD) 72 L Glucose 107 H Calcium 8.3 L Total Bilirubin 0.5 AST 32 ALT 41 Alkaline Phosphatase 87 Total Protein 6.8 Albumin 3.0 L Globulin 3.8 Albumin/Globulin Ratio 0.8 L Lipase 37 Blood Type Antibody Screen Crossmatch IS Only PD MEDICAL DECISION MAKING - ED course ED course: 84-year-old gentleman on warfarin presents with large volume lower GI bleed with normal hemodynamics and stable H&H from his last admission. INR greater than 10. We will reverse him with several units of FFP and vitamin K. Dr. Lindsey is aware of the case and will consult if needed and I spoke with Dr. Rodriguez for admission at 5:18 PM. Departure - Departure Disposition: ED Place in Observation Clinical Impression: Lower GI bleeding, Supratherapeutic INR Condition: Serious
[2019-04-22 17:07] LABS: PARTIAL THROMBOPLASTIN TIME 87.6 secs (24.9-33.3)
[2019-04-22 17:12] LABS: PT - PROTHROMBIN TIME > 120.0 secs (9.9-12.6)
[2019-04-22 17:13] LABS: INR > 10.0 (0.8-1.2)
[2019-04-22] MEDS ORDERED: oxyCODONE 5 MG TABLET PO PRN (17:18)
[2019-04-22] MEDS ORDERED: PHYTONADIONE 10 MG/ML AMP IVP STA (17:18)
[2019-04-22] MEDS ORDERED: ONDANSETRON ODT 4 MG TABLET TL PRN (17:18)
[2019-04-22] MEDS ORDERED: ACETAMINOPHEN 325 MG TABLET PO PRN (17:18)
[2019-04-22] MEDS ORDERED: ONDANSETRON 4 MG/2 ML VIAL IVP PRN (17:18)
[2019-04-22] MEDS: SODIUM CHLORIDE 0.9% 1,000 ML IV SCH (17:39)
--- NOTE | 2019-04-22 18:38 | CONSULTATION NOTE ---
Referring Provider Name of Referring Provider:: Dr. Sky Harding Consult Date: 04/22/19 Chief Complaint - Chief Complaint Chief Complaint: Lower GI bleed History of Present Illness - Admitted From Admitted From:: [facility] ED Room 3 - History Obtained From Records Reviewed: Yes History obtained from: Patient and family Exam Limitations: None - History of Present Illness HPI Comment/Other: Patient is a very pleasant 84 [address] Harding asked that I see for a GI bleed. Notably the patient has an INR >10 and is on Coumadin. Also notably, review of the patient's chart reveals that he has had 2 lower GI bleeds and a subdural hematoma and recommendation was made not to anticoagulate that patient due to the patient's risk of bleeding. The patient does have chronic atrial fibrillation. The recommendation regarding anticoagulation apparently c hanged when an ECHO revealed atrial clot. Additionally the patient has had at least 2 colonoscopies with diverticular disease noted throughout the colon. The colonoscopy reports did not see the source of blood but theorized that it was diverticular. I am summarizing when I state that the patient's ejection fraction has measured a high of about 60 about 9-10 years ago going to a low of 20-25 recently and now with the intervention of cardiology rising to 40. The patient denies hematemesis or unanticipated weight loss. History - Past Medical History Cardiovascular: reports: Hypertension, High cholesterol, Peripheral Vascular Disease, Atrial fibrillation Respiratory: reports: None Neuro: reports: Other Endocrine/Autoimmune: reports: None GI: reports: None : reports: None Psych: reports: None Musculoskeletal: reports: Osteoarthritis, Other Derm: reports: None MRSA Hx?: No - Past Surgical History General: reports: Hiatal hernia repair Ortho: reports: Hip replacement, Knee replacement Cardiovascular: reports: Cardiac catheterization Neuro: reports: Craniotomy HEENT: reports: Tonsil/Adenoidectomy - Family & Social History Family History Comment/Other: father: heart disease unspecified and diabetes. mother: Had an unspecified hematologic problem for which she needed blood transfusions Social History Notes: Denies alcohol, tobacco or illicit drugs. Uses a cane to get around at home - POLST Patient has POLST: No POLST Status: DNR Meds/Allgy - Home Medications Home Medications: Ambulatory Orders Medication Instructions Recorded Confirmed Allopurinol 200 mg PO DAILY 04/28/14 04/22/19 Furosemide 40 mg PO DAILY 03/26/19 04/22/19 Warfarin [Coumadin] 10 mg PO MOFR 03/26/19 03/27/19 Carvedilol 3.125 mg PO BID 03/27/19 04/22/19 Clotrimazole/Betamethasone Dip 1 applic TOP BID PRN 03/27/19 04/22/19 [Clotrimazole-Betamethasone Crm] Docusate Sodium 100 mg PO BID PRN 03/27/19 04/22/19 Losartan [Cozaar] 50 mg PO QPM 03/27/19 04/22/19 Magnesium Oxide 400 mg PO BID 03/27/19 04/22/19 Melatonin 3 mg PO QPM PRN 03/27/19 04/22/19 Nystatin 1 applic TOP BID 03/27/19 04/22/19 Spironolactone 25 mg PO DAILY 03/27/19 04/22/19 Warfarin [Coumadin] 7.5 mg PO SUTUWETHSA 03/27/19 03/27/19 Doxazosin Mesylate 8 mg PO QPM 04/22/19 04/22/19 Simvastatin 10 mg PO QPM 04/22/19 04/22/19 - Allergies Allergies/Adverse Reactions: Allergies Allergy/AdvReac Type Severity Reaction Status Date / Time No Known Drug Allergies Allergy Verified 04/22/19 16:04 Review of Systems - Cardiovascular Cariovascular: reports: Irregular heart rate - Respiratory Respiratory: denies: Cough, Hemoptysis - Gastrointestinal Gastrointestinal: reports: Rectal bleeding, Bloody stools. denies: Abdominal pain, Nausea, Vomiting, Gerald blood emesis, Coffee grounds emesis Exam - Vital Signs Reviewed Vital Signs: Yes Vital Signs: Vital Signs x48h Temp Pulse Pulse Resp BP BP Pulse Ox 04/22/19 18:20 36.6 C 87 17 106/61 98 04/22/19 17:27 92 22 102/72 04/22/19 17:10 36.5 C 70 20 102/72 99 04/22/19 16:02 36.8 C 91 20 145/74 H 98 - Physical Exam General Appearance: positive: No acute distress Conclusion/Plan - Diagnosis Diagnosis: Recurrent rectal bleeding in a 84 year old male with INR>10 who is at high risk of recurrent lower GI bleed (and history of subdural hematoma) - Plan Plan: I do not think that surgical or endoscopic intervention is indicated. The INR should be expeditiously returned to at lest 2.5 and arguably lower. The risk of continued anticoagulation has to weighed against the risk of no anticoagulation in this patient as the patient has had now 4 significant complications from anticoagulation (now 3 GI bleeds and a subdural hematoma). The patient is a very poor surgical risk if surgical control of the bleeding is required i.e. the risk of surgery is higher than the risk of stopping his anticoagulation. If surgery is indicated, NSQIP review of his condition indicates a 56.8% risk of serious complication with a 68.6% risk of any complication. Cardiac complication is 24.3% with the risk of 57.2%. Predicted length of stay is 17.5 days. I would strongly suggest a non-operative approach. Thank you very much for the opportunity to participate in this patient's care. - Lab Results Fish Bones: 04/22/19 16:20 04/22/19 16:20
[2019-04-22] MEDS: PANTOPRAZOLE 40 MG VIAL IVP SCH (18:53)
[2019-04-22] MEDS: SODIUM CHLORIDE FLUSH 0.9% 10 ML SYRINGE IVP PRN ×2 (18:53→21:03)
[2019-04-22 22:23] LABS: BASOPHILS % (AUTO) 0.3 %; EOSINOPHILS # (AUTO) 0.1 10^3/uL (0.0-0.7); EOSINOPHILS % (AUTO) 1.2 %; HGB - HEMOGLOBIN 7.9 g/dL (14.0-18.0); LYMPHOCYTES # (AUTO) 1.7 10^3/uL (1.5-3.5); LYMPHOCYTES % (AUTO) 15.2 %; MEAN CORPUSCULAR HEMOGLOBIN 33.2 pg (27.0-31.0); MEAN CORPUSCULAR HGB CONC 32.1 g/dL (32.0-36.0); MEAN CORPUSCULAR VOLUME 103.4 fL (80.0-94.0); MEAN PLATELET VOLUME 8.7 fL (7.4-11.4); MONOCYTES # (AUTO) 0.8 10^3/uL (0.0-1.0); MONOCYTES % (AUTO) 6.9 %; NEUTROPHILS # (AUTO) 8.3 10^3/uL (1.5-6.6); NEUTROPHILS % (AUTO) 74.4 %; PLT - PLATELET COUNT 218 10^3/uL (130-450); RED BLOOD COUNT 2.38 10^6/uL (4.70-6.10); WHITE BLOOD COUNT 11.2 x10^3/uL (4.8-10.8)
[2019-04-22 22:29] LABS: INR 2.5 (0.8-1.2); PT - PROTHROMBIN TIME 28.3 secs (9.9-12.6)
[2019-04-23] MEDS: SODIUM CHLORIDE FLUSH 0.9% 10 ML SYRINGE IVP SCH ×5 (00:14→21:13)
--- NOTE | 2019-04-23 00:15 | HISTORY & PHYSICAL EXAMINATION ---
DATE OF SERVICE: 04/22/2019 Physician: Moni Rodriguez MD PRIMARY CARE PROVIDER: Francisco Maya MD. ADMITTING PROVIDER: Moni Rodriguez MD. History obtained from patient, [facility], and Dr. Harding. CHIEF COMPLAINT: Large bloody bowel movement at home and two more in the emergency room. HISTORY OF PRESENT ILLNESS: This is an 84-year-old white male whose main problem over the last six to seven years has been idiopathic cardiomyopathy and atrial fibrillation. He had left ventricular hypertrophy on an EKG back in 2007 and had an echo that was normal. He then developed leg edema and was treated with spironolactone by September 2009. While getting cataract surgery in June 2011, he had an irregular heart rate and he was sent for evaluation and found to be in new onset atrial fibrillation. He had concentric left ventricular hypertrophy that was mild, with an ejection fraction of 50-55%. Borderline apical hypokinesis. He had moderately dilated left atrium, moderately to severe dilated right atrium, tricuspid valve dilated. Persantine stress test at that time was negative. By June 2014, the follow up echo showed his right ventricle to be worsening. In August 2017, he presented with severe dyspnea on exertion. His ejection fraction at that time was found to be 20-25%. Up until that point, with the atrial fibrillation, he was not being anticoagulated. He had a previous history of gastrointestinal bleed in 2000 and 2011. Coumadin was started in April [address] Maya in consultation with Dr. Elizabeth. By 2017, with the addition of the severe dilated cardiomyopathy, the patient was evaluated for possible biventricular pacer, as well as a Watchman procedure. However, echocardiogram showed him to have a clot in the left atrium. This was in spite of adequate INR. Anticoagulation was continued and he underwent a transesophageal echo in the spring, continued to have the clot in his left atrium. As such, Watchman procedure couldn't be done, and the patient was treated medically. Between August 2017 and April 2018, with medical management, and his ejection fraction improved to 40%. He no longer was a candidate for the Watchman procedure or biventricular pacing. He was recently hospitalized 03/27/2019 for right leg cellulitis, resulting in sepsis. He was hypotensive, tachycardic. Grew out gram-negative deanna in his blood. With that stay, he had a repeat echo that showed his left ventricular systolic function had returned to normal with an ejection fraction of 60-65%. He continues to have moderate to severe right ventricular enlargement, severe increase in left atrial volume index, severe right atrial enlargement, mild aortic regurgitation, mild mitral regurgitation and [id number] tricuspid regurgitation with moderately abnormal right heart pressures. He has not had any further GI bleeds since the 2012 GI bleed. With his first GI bleed, he presented as bright red blood per rectum. Underwent a colonoscopy 03/16/2001 at [facility]. That colonoscopy showed diverticulosis, right greater than left bowel. In December 2011, he underwent a surveillance colonoscopy. Other than the same diverticulosis, nothing else was found. He was not having any symptoms, but had a GI bleed that required hospitalization a few weeks later. He was seen by the Surgeon on service and had a second opinion with [facility]. With the first opinion, no repeat scope was offered since he had just had one. EGD was considered but not felt to be necessary. With the second opinion, they did offer a repeat scope but the patient was the one who declined. He really didn't want another one done. No video endoscopy was offfered. He has not had any GI bleeding since the starting of Coumadin in 2014. Today, he had a sudden urge to defecate with nausea, diaphoresis and he just felt lousy. He had a sudden bowel movement of a large bloody bowel movement. He brought himself to the emergency room where he was seen by Dr. Harding. His temperature was 36.8, blood pressure 145/74, respirations 20, and a pulse was 91. He was 98% on room air. In the emergency room, he proceeded to have two more large bloody bowel movements. Blood pressure had come down to 106/61 by the time he was transferred to the floor. Unfortunately, the patient has not been able to check his INR since he left the hospital for septic admission on 03/30/2019. He completed his antibiotic therapy, continued his coumadin. Seen in Dr. Maya's office where he queried whether he should get his INR with that office. Up until now, the patient has been getting his blood done at [facility] under care with the metal stud framer. Dr. Maya recommended the patient continue with that. Unfortunately, [facility] no longer has point of care testing. The machine is broken. They do no know when they are going to get a new one. So, the patient did not get his INR done between discharge and now. In the emergency room, his INR was greater than 10. ProTime was greater than 120 seconds. In addition, his white cell count was normal at 9.9. His baseline hemoglobin is around 12 and he is 10.7 with hematocrit 34. MCV is elevated at 103. As such, the patient is now placed in observation. He will have reversal of his INR with FFP and vitamin K. He has already been seen in consultation by general surgery in the emergency room. PAST MEDICAL HISTORY 1. Recurrent cellulitis of lower extremities. He had left foot cellulitis in August 2012. Unfortunately, had sepsis with hypotension and rigors 03/27/2019 with right leg cellulitis. That episode of hypotension was accompanied by acute renal failure that resolved. 2. Atrial fibrillation as above. 3. Chronic lymphocytic leukemia. He had mild leukocytosis dating to 2011. Evaluated by oncology where a peripheral flow cytometry does show a CLL band of unknown significance. His white cell count has gently drifted to normal. He is followed on a yearly basis by oncology now. 4. Chronic kidney disease, stage III. 5. Anemia of chronic disease. 6. Hypertension. 7. Gout. 8. Cataracts. 9. Osteoarthritis of the knees with a right total knee replacement. He has had bilateral knee arthroscopic surgeries in the past. 10. Osteoarthritis with a left total hip replacement in the past. 11. 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 12. Spinal stenosis with chronic back pain. 13. Peripheral vascular disease. 14. Umbilical hernia. ALLERGIES: NO KNOWN DRUG ALLERGIES. MEDICATIONS 1. Reviewed by pharmacy and he is on allopurinol 200 mg a day. 2. Carvedilol 3.125 mg b.i.d. 3. Clotrimazole with betamethasone topically b.i.d. 4. Docusate b.i.d. 5. Doxazosin 8 mg q.p.m. 6. Lasix 40 mg daily. 7. Losartan 50 mg in the evening. 8. Magnesium 400 mg p.o. b.i.d. 9. Melatonin 3 mg in the evening. 10. Nystatin application daily. 11. Simvastatin 10 mg daily. 12. Spironolactone 25 mg daily. 13. Coumadin 10 mg on Sunday and Sunday and 7.5 mg the rest of the week. SOCIAL HISTORY: Born and raised in [place]. 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 He covered most of [facility] [facility] in the [place] area, in [place], [place], etc. He retired on [facility]. He is to his first . They live in [place] in their own home. 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 He used to drink quite a bit of beer. Again, part of his job and the stress of the job. You could say that he drank too much. But he never had withdrawal, never was intoxicated, and stopped drinking about 20 years ago. He has no other history of recreational substance abuse. PREVIOUS LEVEL OF FUNCTION:shows him to be completely independent with activities of daily living. Drives a car, pays bills, takes care of himself and the house with his . FAMILY HISTORY 1. Mom of myelofibrosis at the age of 66. 2. Dad of complications of diabetes with congestive heart failure at the age of 68. 3. One sister of a drug overdose. One sister has atrial fibrillation. One brother has severe, severe peripheral neuropathy. 4. He has three daughters. One is obese, one has Peutz-Jeghers syndrome since childhood. REVIEW OF SYSTEMS GENERAL: He has no unexpected weight changes, fevers, chills. ENT: Wears glasses, he has a history of cataracts. No dysarthria, dysphagia, or dental problems. PULMONARY: Denies coughing, wheezing, chest congestion. No asthma. CARDIOVASCULAR: As above. GASTROINTESTINAL: As above. GENITOURINARY: Prostate exams have been negative. Has occasional mild urgency, retention, dribbling. Nocturia is twice. JOINTS: Stiff in the morning, do not limit him at this time. SKIN: Denies mold rashes or new lesions. PSYCHIATRIC: Denies depression, hallucinations. ENDOCRINE: Denies polyuria, polyphagia, polydipsia. Denies heat or cold intolerance. CONDENSER WINDER: Maybe some mild cognitive problems. He has occasionally taken his medications incorrectly. But no history of seizures, syncope. Occasional mild vertigo. No focal neurological deficits. PHYSICAL EXAMINATION: I am seeing the patient after he has been in the emergency room and he is now on Med/Surg. VITAL SIGNS: Temperature is 36.6, pulse is 87, blood pressure is 106/61, respirations are 17 and unlabored, and he is 98% on room air. He is 5 feet 10 inches tall and weighs 93.89 kg. He wants me to note that when he left the hospital, he was 230 pounds with a sepsis admission and fluid resuscitation. After going back down to his baseline weight, he is 207 pounds today. GENERAL: On general exam, he is a tall, lean, lanky gentleman, alert, appears well nourished, no acute distress with at the bedside. HEENT: Unremarkable. Sclerae nonicteric. Moist oral mucosa. [place]. No facial asymmetry. Voice is normal. NECK: Neck is supple without goiter or bruits or JVD. LUNGS: Clear to auscultation and percussion without crackles, rhonchi or wheezing. HEART: PMI normally placed, he has an irregular rate and rhythm that is well controlled. ABDOMEN: Soft, hypoactive bowel sounds, easily reducible umbilical hernia, nontender, no masses. Specifically, no hepatosplenomegaly. EXTREMITIES: Cool hands and feet. He is quite pale, especially on his legs. Cannot tell if that is because of lack of sun exposure or his anemia. His previous cellulitis is completely resolved in that right leg. He continues to have an ulcer in the left toe that is covered and I have not examined it yet. Nursing will have to document it in size. He is currently seeing [facility] for wound care. He has no clubbing, cyanosis or edema. NEUROLOGIC: He is alert and oriented to person, place and time. Appears to be mildly deaf, but otherwise cranial nerves are intact. No focal neurological deficits. No tremors. LABORATORY DATA: Sodium is 138, potassium 5.3, BUN 24, creatinine 1, random glucose 103, calcium 8.3. Liver enzymes normal. INR is greater than 10. PTT greater than 120 seconds. White cell count 9.9, hemoglobin 10.7, hematocrit 34.1, MCV 103.6 with platelets 284. ASSESSMENT/PLAN 1. Melanotic stool. This is in a gentleman who has a severely prolonged INR. Diverticulosis on two previous colonoscopies. No documented pathology of upper GI or right bowel angiodysplasia. He has already been seen by general surgery. General surgery feels that he can been seen in the outpatient setting, especially in view of the fact that we need to reverse his INR and use FFP. Plan a. Observation stay. b. Attestation: The patient will be discharged within 96 hours. c. General surgery consultation as above. d. The patient is already receiving 4 units FFP from the ED, and will get vitamin K. 2. Supratherapeutic INR. Most likely this patient had interaction between his antibiotics and his Coumadin. Unfortunately, was not able to be checked in his PCP office nor at [facility]. He is asking to start going back to his PCP office. It is too inconvenient to go to the [facility] and then deal with [facility] in [place]. I explained to him that he should discuss that with his PCP and I can certainly solicitate that discussion. Again, he will receive FFP and vitamin K. 2. Chronic atrial fibrillation. Currently, rate controlled. We will hold off on his medication tonight and resume it tomorrow. 3. Idiopathic cardiomyopathy. Gratifyingly resolved over several years with medical management. It is amazing that his ejection fraction has gone from 20%, with his most recent echo last month 60%. He is due to see his metal stud framer in the near future and he will give them a copy of that echo. 4. DO NOT RESUSCITATE status. While he wants everything done up until the moment of , if he deteriorates in spite of maximal medical management, he does not want to be intubated or receive CPR. Otherwise, though, he would like blood products, pressors, placement in the unit, surgeries if necessary. He would like to sit down and have advanced care planning discussion with me and that will be done tomorrow. 5. Deep venous thrombosis prophylaxis will be ANIBAL stinson. TD: 04/22/2019 19:27 ANTHONY
[2019-04-23] MEDS ORDERED: SODIUM CHLORIDE 0.9% 500 ML ONE (00:17)
[2019-04-23] MEDS: SODIUM CHLORIDE 0.9% 1,000 ML IV SCH ×2 (02:52→17:57)
[2019-04-23] MEDS: SODIUM CHLORIDE FLUSH 0.9% 10 ML SYRINGE IVP PRN ×2 (06:21→07:07)
[2019-04-23 06:55] LABS: BASOPHILS % (AUTO) 0.3 %; EOSINOPHILS # (AUTO) 0.1 10^3/uL (0.0-0.7); EOSINOPHILS % (AUTO) 0.5 %; INR 1.8 (0.8-1.2); LYMPHOCYTES # (AUTO) 1.9 10^3/uL (1.5-3.5); LYMPHOCYTES % (AUTO) 17.1 %; MEAN CORPUSCULAR HEMOGLOBIN 32.7 pg (27.0-31.0); MEAN PLATELET VOLUME 9.1 fL (7.4-11.4); MONOCYTES # (AUTO) 0.7 10^3/uL (0.0-1.0); MONOCYTES % (AUTO) 6.2 %; NEUTROPHILS # (AUTO) 8.1 10^3/uL (1.5-6.6); PLT - PLATELET COUNT 190 10^3/uL (130-450); PT - PROTHROMBIN TIME 19.7 secs (9.9-12.6); RED BLOOD COUNT 1.99 10^6/uL (4.70-6.10); RED CELL DISTRIBUTION WIDTH 15.3 % (12.0-15.0); WHITE BLOOD COUNT 10.9 x10^3/uL (4.8-10.8)
[2019-04-23 06:57] LABS: HGB - HEMOGLOBIN 6.5 g/dL (14.0-18.0)
[2019-04-23 07:01] LABS: CALCIUM 7.4 mg/dL (8.5-10.3); CREATININE 0.8 mg/dL (0.6-1.2)
[2019-04-23] MEDS ORDERED: IOVERSOL 320 100 ML VIAL IVP ONE ×2 (07:35→08:22)
[2019-04-23] MEDS: PANTOPRAZOLE 40 MG VIAL IVP SCH ×2 (08:59→21:13)
--- NOTE | 2019-04-23 09:18 | CT Report ---
Reason: GI bleed. Procedure Date: 04/23/2019 Accession Number: [id number] / [id number] Procedure: CT - ANGIO ABDOMEN/PELVIS W CPT Code: FULL RESULT: EXAM: CT ANGIOGRAM ABDOMEN AND PELVIS WITH CONTRAST EXAM DATE: 04/23/2019 08:04 AM. CLINICAL HISTORY: GI bleed. COMPARISONS: ABDOMEN/PELVIS W/ 05/27/2015 8:43 AM. TECHNIQUE: Routine helical CT angiogram imaging was performed through the abdomen and pelvis in the arterial phase. IV contrast: Optiray 320 100 mL. Enteric contrast: No. Reconstructions: Coronal, sagittal, and 3D MIP reconstructions. In accordance with CT protocol optimization, one or more of the following dose reduction techniques were utilized for this exam: automated exposure control, adjustment of mA and/or KV based on patient size, or use of iterative reconstructive technique. FINDINGS: Vasculature: Extensive atherosclerotic arterial calcifications. No abdominal aortic aneurysm. Celiac, SMA, SUSAN and bilateral renal arteries are patent. Bilateral iliac and common femoral arteries are patent. Small layering right pleural effusion with adjacent atelectasis. Lung Bases: Mild cardiomegaly. Abdominal Solid Organs: Large 18.7 cm cystic right liver lobe lesion. Several small scattered liver cysts, including a 2.2 cm posterior right liver lobe cyst with probable dependent hemorrhage or debris on series 5 image 109. A subcapsular posterolateral segment 6 of the posterior right liver lobe 2.4 cm cyst also has dependent layering material that may be from hemorrhage with a small amount of water density fluid adjacent to right liver lobe. 2.3 x 2.0 cm left adrenal nodule, previously 2.2 x 1.9 cm 05/27/2015. No significant interval change. Normal right adrenal gland. Both kidneys enhance symmetrically and show no evidence for suspicious mass or hydronephrosis. Spleen is unremarkable. Pancreas unremarkable. Peritoneal Cavity: Mild lipomatous hypertrophy of the ileocecal valve. No intussusception. Normal appendix. Mild soft tissue stranding versus volume averaging and motion artifact adjacent to upper gastric body and fundus. Extensive colonic diverticulosis. Portions of colon are limited and CT evaluation by under distention. No significant pericolonic soft tissue stranding. No dilated bowel. Pelvic Organs: Normal. The bladder and visualized pelvic organs are within normal limits. Bones: Prior left total hip arthroplasty. Probable T12 vertebral body bone island. Thoracolumbar spine DISH. Multilevel lumbar spine degenerative changes. Other: None. IMPRESSION: 1. No aneurysm or dissection. No significant arterial stenosis or occlusion. 2. Mild soft tissue stranding versus volume averaging and patient motion artifact adjacent to upper gastric body and fundus. Consider endoscopy. 3. Extensive diverticulosis. No CT evidence for diverticulitis. 4. Portions of colon are under-distended, limiting CT evaluation. Consider colonoscopy to exclude lesion if clinically warranted. 5. Scattered small liver cysts, including a couple of cysts within posterior right liver lobe that may have dependent hemorrhage or debris. Small amount of water attenuation fluid adjacent to right liver lobe could be from ruptured subcapsular hepatic cyst. 6. Large 18.7 right liver lobe cystic lesion, previously 12.9 cm on 05/27/2015. Question biliary cystadenoma or cystadenocarcinoma. 7. Stable left adrenal nodule. RADIA
[2019-04-23 10:48] LABS: BASOPHILS % (AUTO) 0.3 %; EOSINOPHILS % (AUTO) 0.3 %; HGB - HEMOGLOBIN 7.5 g/dL (14.0-18.0); LYMPHOCYTES # (AUTO) 2.1 10^3/uL (1.5-3.5); LYMPHOCYTES % (AUTO) 18.3 %; MEAN CORPUSCULAR HEMOGLOBIN 33.3 pg (27.0-31.0); MEAN CORPUSCULAR HGB CONC 32.8 g/dL (32.0-36.0); MEAN CORPUSCULAR VOLUME 101.8 fL (80.0-94.0); MEAN PLATELET VOLUME 9.2 fL (7.4-11.4); MONOCYTES # (AUTO) 0.8 10^3/uL (0.0-1.0); MONOCYTES % (AUTO) 6.5 %; NEUTROPHILS # (AUTO) 8.5 10^3/uL (1.5-6.6); NEUTROPHILS % (AUTO) 72.9 %; PLT - PLATELET COUNT 186 10^3/uL (130-450); RED BLOOD COUNT 2.25 10^6/uL (4.70-6.10); RED CELL DISTRIBUTION WIDTH 16.4 % (12.0-15.0); WHITE BLOOD COUNT 11.7 x10^3/uL (4.8-10.8)
[2019-04-23] MEDS ORDERED: amLODIPine 5 MG TABLET PO SCH (11:00)
[2019-04-23] MEDS ORDERED: LOSARTAN 50 MG TABLET PO SCH (11:00)
--- NOTE | 2019-04-23 13:08 | PROVIDER PROGRESS NOTE ---
Subjective - Prog Note Date Prog Note Date: 04/23/19 Prog Note Time: 12:57 - Subjective Pt reports feeling: Worse Subjective: This morning he began to have more bowel movements that were bloody. Dropped his pressure. As such he was transferred to ICU. Last night he received 3 units of fresh frozen plasma to reverse his INR. He received more fresh frozen plasma this morning. INR started greater than 10 last night, last night was two-point 3:05 fresh frozen plasma, and this morning 1.8. He has now received 2 units of packed cells and his hemoglobin is gone from 10.7 down to 7.9. With a hemorrhage this morning he went to 6.5. Status post 2 units he is only 7.5. I did a stat CT angio scan looking for vascular blush. Other than a slightly thickened stomach wall, there is no vascular source of bleeding seen. Current Medications - Current Medications Current Medications: Active Medications Acetaminophen (Tylenol) 650 mg PO Q4HR PRN PRN Reason: Pain 1 to 4 Sodium Chloride (Normal Saline 0.9%) 1,000 mls @ 100 mls/hr IV .Q10H [facility] Last Admin: 04/23/19 02:52 Dose: 100 mls/hr Ondansetron HCl (Zofran Inj) 4 mg IVP Q6HR PRN PRN Reason: Nausea / Vomiting Ondansetron HCl (Zofran Odt) 4 mg TL Q6HR PRN PRN Reason: Nausea / Vomiting Oxycodone HCl (Roxicodone) 5 mg PO Q4HR PRN PRN Reason: Pain 5 to 7 Pantoprazole Sodium (Protonix) 40 mg IVP BID [facility] Last Admin: 04/23/19 08:59 Dose: 40 mg Polyethylene Glycol (Miralax) 17 gm PO DAILY [facility] Sodium Chloride (Normal Saline Flush 0.9%) 10 ml IVP PRN PRN PRN Reason: NEEDED PER PROVIDER ORDERS Last Admin: 04/23/19 07:07 Dose: 10 ml Sodium Chloride (Normal Saline Flush 0.9%) 10 ml IVP 0100,0900,1700 [facility] Last Admin: 04/23/19 08:59 Dose: 10 ml Allopurinol 200 mg PO DAILY 04/28/14 Furosemide 40 mg PO DAILY 03/26/19 Warfarin [Coumadin] 10 mg PO MOFR 03/26/19 Carvedilol 3.125 mg PO BID 03/27/19 Clotrimazole/Betamethasone Dip [Clotrimazole-Betamethasone Crm] 1 applic TOP BID PRN 03/27/19 Docusate Sodium 100 mg PO BID PRN 03/27/19 Losartan [Cozaar] 50 mg PO QPM 03/27/19 Magnesium Oxide 400 mg PO BID 03/27/19 Melatonin 3 mg PO QPM PRN 03/27/19 Nystatin 1 applic TOP BID 03/27/19 Spironolactone 25 mg PO DAILY 03/27/19 Warfarin [Coumadin] 7.5 mg PO SUTUWETHSA 03/27/19 Doxazosin Mesylate 8 mg PO QPM 04/22/19 Simvastatin 10 mg PO QPM 04/22/19 Objective - Vital Signs/Intake & Output Reviewed Vital Signs: Yes Vital Signs: Vital Signs x48h Temp Pulse Pulse Resp BP BP Pulse Ox 04/23/19 12:08 36.5 C 85 20 102/55 L 100 04/23/19 11:04 85 15 114/77 100 04/23/19 11:00 116 H 16 114/77 100 04/23/19 10:00 37.0 C 88 104 H 20 120/82 H 120/82 H 100 04/23/19 09:07 88 22 110/66 100 04/23/19 08:00 36.6 C 97 18 108/63 100 04/23/19 07:02 36.3 C L 97 19 108/65 04/23/19 07:00 91 19 108/65 100 04/23/19 06:53 36.5 C 100 22 115/64 04/23/19 06:12 36.3 C L 88 19 101/62 04/23/19 06:00 87 20 108/65 04/23/19 05:00 36.3 C L 117 H 86 24 107/62 107/62 100 Intake & Output: Intake & Output 04/20/19 04/21/19 04/22/19 04/23/19 23:59 23:59 23:59 23:59 Intake Total 790 2499.667 Output Total 2050 Balance 790 449.667 - Objective General Appearance: positive: No acute distress, Alert, Other ( at the bedside after this am's resuscitation with blood products. he's tired but comfortable) Eyes Bilateral: positive: PERRL, EOMI ENT: positive: Pharynx nml Neck: positive: No JVD Respiratory: positive: Chest non-tender. negative: Wheezes, Rales, Rhonchi Cardiovascular: positive: Regular rate & rhythm, Systolic murmur. negative: Gallop/S4, Friction rub Abdomen: positive: Non-tender, No organomegaly, Nml bowel sounds, No distention Skin: positive: Warm, Dry Extremities: positive: Full ROM, No pedal edema Neurologic/Psychiatric: positive: Oriented x3, CN's nml (2-12), Motor nml - Lab Results Fish Bones: 04/23/19 10:44 04/23/19 06:36 Other Labs: Lab Results x24hrs 04/23/19 04/23/19 04/23/19 Range/Units 10:44 06:36 06:36 WBC 11.7 H (4.8-10.8) x10^3/uL RBC 2.25 L (4.70-6.10) 10^6/uL Hgb 7.5 L (14.0-18.0) g/dL Hct 22.9 L (42.0-52.0) % MCV 101.8 H (80.0-94.0) fL MCH 33.3 H (27.0-31.0) pg MCHC 32.8 (32.0-36.0) g/dL RDW 16.4 H (12.0-15.0) % Plt Count 186 (130-450) 10^3/uL MPV 9.2 (7.4-11.4) fL Neut # (Auto) 8.5 H (1.5-6.6) 10^3/uL Lymph # (Auto) 2.1 (1.5-3.5) 10^3/uL [place] # (Auto) 0.8 (0.0-1.0) 10^3/uL Eos # (Auto) 0.0 (0.0-0.7) 10^3/uL Baso # (Auto) 0.0 (0.0-0.1) 10^3/uL Absolute Nucleated RBC 0.00 x10^3/uL Nucleated RBC % 0.0 /100WBC PT 19.7 H (9.9-12.6) secs INR 1.8 H (0.8-1.2) APTT (24.9-33.3) secs Sodium 136 (135-145) mmol/L Potassium 4.4 (3.5-5.0) mmol/L Chloride 107 (101-111) mmol/L Carbon Dioxide 26 (21-32) mmol/L Anion Gap 3.0 L (6-13) BUN 25 H (6-20) mg/dL Creatinine 0.8 (0.6-1.2) mg/dL Estimated GFR (MDRD) 93 (>89) Glucose 107 H (70-100) mg/dL Calcium 7.4 L (8.5-10.3) mg/dL Total Bilirubin (0.2-1.0) mg/dL AST (10-42) IU/L ALT (10-60) IU/L Alkaline Phosphatase (42-121) IU/L Total Protein (6.7-8.2) g/dL Albumin (3.2-5.5) g/dL Globulin (2.1-4.2) g/dL Albumin/Globulin Ratio (1.0-2.2) Lipase (22-51) U/L Nasal Screen MRSA (PCR) (NEGATIVE) Blood Type Antibody Screen Crossmatch IS Only 04/23/19 04/23/19 04/22/19 Range/Units 06:36 02:00 22:18 WBC 10.9 H (4.8-10.8) x10^3/uL RBC 1.99 L (4.70-6.10) 10^6/uL Hgb 6.5 L* (14.0-18.0) g/dL Hct 20.3 L (42.0-52.0) % MCV 102.0 H (80.0-94.0) fL MCH 32.7 H (27.0-31.0) pg MCHC 32.0 (32.0-36.0) g/dL RDW 15.3 H (12.0-15.0) % Plt Count 190 (130-450) 10^3/uL MPV 9.1 (7.4-11.4) fL Neut # (Auto) 8.1 H (1.5-6.6) 10^3/uL Lymph # (Auto) 1.9 (1.5-3.5) 10^3/uL [place]are # (Auto) 0.7 (0.0-1.0) 10^3/uL Eos # (Auto) 0.1 (0.0-0.7) 10^3/uL Baso # (Auto) 0.0 (0.0-0.1) 10^3/uL Absolute Nucleated RBC 0.00 x10^3/uL Nucleated RBC % 0.0 /100WBC PT 28.3 H (9.9-12.6) secs INR 2.5 H (0.8-1.2) APTT (24.9-33.3) secs Sodium (135-145) mmol/L Potassium (3.5-5.0) mmol/L Chloride (101-111) mmol/L Carbon Dioxide (21-32) mmol/L Anion Gap (6-13) BUN (6-20) mg/dL Creatinine (0.6-1.2) mg/dL Estimated GFR (MDRD) (>89) Glucose (70-100) mg/dL Calcium (8.5-10.3) mg/dL Total Bilirubin (0.2-1.0) mg/dL AST (10-42) IU/L ALT (10-60) IU/L Alkaline Phosphatase (42-121) IU/L Total Protein (6.7-8.2) g/dL Albumin (3.2-5.5) g/dL Globulin (2.1-4.2) g/dL Albumin/Globulin Ratio (1.0-2.2) Lipase (22-51) U/L Nasal Screen MRSA (PCR) NEGATIVE (NEGATIVE) Blood Type Antibody Screen Crossmatch IS Only 04/22/19 04/22/19 04/22/19 Range/Units 22:18 16:20 16:20 WBC 11.2 H (4.8-10.8) x10^3/uL RBC 2.38 L (4.70-6.10) 10^6/uL Hgb 7.9 L (14.0-18.0) g/dL Hct 24.6 L (42.0-52.0) % MCV 103.4 H (80.0-94.0) fL MCH 33.2 H (27.0-31.0) pg MCHC 32.1 (32.0-36.0) g/dL RDW 14.0 (12.0-15.0) % Plt Count 218 (130-450) 10^3/uL MPV 8.7 (7.4-11.4) fL Neut # (Auto) 8.3 H (1.5-6.6) 10^3/uL Lymph # (Auto) 1.7 (1.5-3.5) 10^3/uL Dare # (Auto) 0.8 (0.0-1.0) 10^3/uL Eos # (Auto) 0.1 (0.0-0.7) 10^3/uL Baso # (Auto) 0.0 (0.0-0.1) 10^3/uL Absolute Nucleated RBC 0.00 x10^3/uL Nucleated RBC % 0.0 /100WBC PT > 120.0 H* (9.9-12.6) secs INR > 10.0 H* (0.8-1.2) APTT 87.6 H (24.9-33.3) secs Sodium 138 (135-145) mmol/L Potassium 5.3 H (3.5-5.0) mmol/L Chloride 102 (101-111) mmol/L Carbon Dioxide 28 (21-32) mmol/L Anion Gap 8.0 (6-13) BUN 24 H (6-20) mg/dL Creatinine 1.0 (0.6-1.2) mg/dL Estimated GFR (MDRD) 72 L (>89) Glucose 107 H (70-100) mg/dL Calcium 8.3 L (8.5-10.3) mg/dL Total Bilirubin 0.5 (0.2-1.0) mg/dL AST 32 (10-42) IU/L ALT 41 (10-60) IU/L Alkaline Phosphatase 87 (42-121) IU/L Total Protein 6.8 (6.7-8.2) g/dL Albumin 3.0 L (3.2-5.5) g/dL Globulin 3.8 (2.1-4.2) g/dL Albumin/Globulin Ratio 0.8 L (1.0-2.2) Lipase 37 (22-51) U/L Nasal Screen MRSA (PCR) (NEGATIVE) Blood Type Antibody Screen Crossmatch IS Only 04/22/19 04/22/19 Range/Units 16:20 16:20 WBC 9.9 (4.8-10.8) x10^3/uL RBC 3.29 L (4.70-6.10) 10^6/uL Hgb 10.7 L (14.0-18.0) g/dL Hct 34.1 L (42.0-52.0) % MCV 103.6 H (80.0-94.0) fL MCH 32.5 H (27.0-31.0) pg MCHC 31.4 L (32.0-36.0) g/dL RDW 14.2 (12.0-15.0) % Plt Count 284 (130-450) 10^3/uL MPV 8.8 (7.4-11.4) fL Neut # (Auto) 7.1 H (1.5-6.6) 10^3/uL Lymph # (Auto) 1.7 (1.5-3.5) 10^3/uL Dare # (Auto) 0.7 (0.0-1.0) 10^3/uL Eos # (Auto) 0.2 (0.0-0.7) 10^3/uL Baso # (Auto) 0.0 (0.0-0.1) 10^3/uL Absolute Nucleated RBC 0.00 x10^3/uL Nucleated RBC % 0.0 /100WBC PT (9.9-12.6) secs INR (0.8-1.2) APTT (24.9-33.3) secs Sodium (135-145) mmol/L Potassium (3.5-5.0) mmol/L Chloride (101-111) mmol/L Carbon Dioxide (21-32) mmol/L Anion Gap (6-13) BUN (6-20) mg/dL Creatinine (0.6-1.2) mg/dL Estimated GFR (MDRD) (>89) Glucose (70-100) mg/dL Calcium (8.5-10.3) mg/dL Total Bilirubin (0.2-1.0) mg/dL AST (10-42) IU/L ALT (10-60) IU/L Alkaline Phosphatase (42-121) IU/L Total Protein (6.7-8.2) g/dL Albumin (3.2-5.5) g/dL Globulin (2.1-4.2) g/dL Albumin/Globulin Ratio (1.0-2.2) Lipase (22-51) U/L Nasal Screen MRSA (PCR) (NEGATIVE) Blood Type O NEGATIVE Antibody Screen NEGATIVE Crossmatch IS Only See Detail ABX Reporting Has patient been on IV antibiotics over the past 48 hours?: No Assessment/Plan - Problem List (1) GI (gastrointestinal hemorrhage) Impression: he was placed in observation with anticipation that we would reverse his INR and send him home. this am, unstable bleed symptoms. CT angio without source of bleeding. Plan: change to inpatient status keep NPO discuss with surgery since interventional radiology not an option per CT. I've left a message and will anticipate conversation case discussed with and patient Qualifiers: GI bleed type/associated pathology: melena Qualified Code(s): K92.1 - Melena (2) Supratherapeutic INR Impression: From coumadin and antibiotic reaction. resolved with FFP and vit K (3) Chronic atrial fibrillation Impression: not on anticoagulation. pulse starting to come up. resume betablocker. (4) Idiopathic cardiomyopathy Impression: last EF has been normal as of 03/2019. He is tolerating the fluids we are giving him. other than resuming his betablocker, will hold off on using diuretics for now.
[2019-04-23] MEDS: POLYETHYLENE GLYCOL 3350 17 GM PACKET PO SCH (14:49)
[2019-04-23 18:53] LABS: INR 1.4 (0.8-1.2); PT - PROTHROMBIN TIME 15.8 secs (9.9-12.6)
[2019-04-23] MEDS ORDERED: traZODone 50 MG TABLET PO STA (19:56)
[2019-04-23] MEDS: NYSTATIN POWDER 15 GM TOP SCH (21:14)
[2019-04-24] MEDS: SODIUM CHLORIDE 0.9% 1,000 ML IV SCH ×2 (03:02→13:22)
[2019-04-24 05:00] LABS: BASOPHILS % (AUTO) 0.3 %; EOSINOPHILS # (AUTO) 0.2 10^3/uL (0.0-0.7); HGB - HEMOGLOBIN 8.2 g/dL (14.0-18.0); LYMPHOCYTES # (AUTO) 1.9 10^3/uL (1.5-3.5); LYMPHOCYTES % (AUTO) 15.8 %; MEAN CORPUSCULAR HEMOGLOBIN 31.8 pg (27.0-31.0); MEAN CORPUSCULAR HGB CONC 32.7 g/dL (32.0-36.0); MEAN CORPUSCULAR VOLUME 97.3 fL (80.0-94.0); MEAN PLATELET VOLUME 9.3 fL (7.4-11.4); MONOCYTES # (AUTO) 0.9 10^3/uL (0.0-1.0); NEUTROPHILS # (AUTO) 8.4 10^3/uL (1.5-6.6); NEUTROPHILS % (AUTO) 71.4 %; PLT - PLATELET COUNT 184 10^3/uL (130-450); RED BLOOD COUNT 2.58 10^6/uL (4.70-6.10); RED CELL DISTRIBUTION WIDTH 17.5 % (12.0-15.0); WHITE BLOOD COUNT 11.8 x10^3/uL (4.8-10.8)
[2019-04-24 05:10] LABS: INR 1.4 (0.8-1.2); PT - PROTHROMBIN TIME 15.6 secs (9.9-12.6)
[2019-04-24 05:14] LABS: CREATININE 0.8 mg/dL (0.6-1.2)
[2019-04-24] MEDS: PANTOPRAZOLE 40 MG VIAL IVP SCH ×2 (08:32→21:05)
[2019-04-24] MEDS: SODIUM CHLORIDE FLUSH 0.9% 10 ML SYRINGE IVP SCH ×3 (08:33→21:08)
[2019-04-24] MEDS ORDERED: NON FORMULARY MED (Melatonin [Melatonin] 3 MG) PO PRN (10:02)
--- NOTE | 2019-04-24 10:15 | PROVIDER PROGRESS NOTE ---
Subjective - Prog Note Date Prog Note Date: 04/24/19 Prog Note Time: 10:11 - Subjective Subjective: he has had quite a bit of flatus but no bloody BM since yesterday am. When he got up this am, pulse went to 130's but he didn't feel it. No sob, no dizziness. Current Medications - Current Medications Current Medications: Active Medications Acetaminophen (Tylenol) 650 mg PO Q4HR PRN PRN Reason: Pain 1 to 4 Allopurinol (Zyloprim) [address] [facility] Carvedilol (Coreg) 3.[address] [facility] Sodium Chloride (Normal Saline 0.9%) 1,000 mls @ 100 mls/hr IV .Q10H [facility] Last Infusion: 04/24/19 06:00 Dose: 100 mls/hr Non-Formulary Medication (Magnesium Oxide [Magnesium Oxide]) 400 mg PO BID [facility] Non-Formulary Medication (Melatonin [Melatonin]) 3 mg PO QPM PRN PRN Reason: sleep Nystatin (Nystop) [address] [facility] Last Admin: 04/23/19 21:14 Dose: 1 applic Ondansetron HCl (Zofran Inj) 4 mg IVP Q6HR PRN PRN Reason: Nausea / Vomiting Ondansetron HCl (Zofran Odt) 4 mg TL Q6HR PRN PRN Reason: Nausea / Vomiting Oxycodone HCl (Roxicodone) 5 mg PO Q4HR PRN PRN Reason: Pain 5 to 7 Pantoprazole Sodium (Protonix) [address] [facility] Last Admin: 04/24/19 08:32 Dose: 40 mg Polyethylene Glycol (Miralax) [address] [facility] Last Admin: 04/23/19 14:49 Dose: Not Given Sodium Chloride (Normal Saline Flush 0.9%) 10 ml IVP PRN PRN PRN Reason: NEEDED PER PROVIDER ORDERS Last Admin: 04/23/19 07:07 Dose: 10 ml Sodium Chloride (Normal Saline Flush 0.9%) 10 ml IVP 0100,0900,1700 [facility] Last Admin: 04/24/19 08:33 Dose: 10 ml Allopurinol 200 mg PO DAILY 04/28/14 Furosemide 40 mg PO DAILY 03/26/19 Warfarin [Coumadin] 10 mg PO MOFR 03/26/19 Carvedilol 3.125 mg PO BID 03/27/19 Clotrimazole/Betamethasone Dip [Clotrimazole-Betamethasone Crm] 1 applic TOP BID PRN 03/27/19 Docusate Sodium 100 mg PO BID PRN 03/27/19 Losartan [Cozaar] 50 mg PO QPM 03/27/19 Magnesium Oxide 400 mg PO BID 03/27/19 Melatonin 3 mg PO QPM PRN 03/27/19 Nystatin 1 applic TOP BID 03/27/19 Spironolactone 25 mg PO DAILY 03/27/19 Warfarin [Coumadin] 7.5 mg PO SUTUWETHSA 03/27/19 Doxazosin Mesylate 8 mg PO QPM 04/22/19 Simvastatin 10 mg PO QPM 04/22/19 Objective - Vital Signs/Intake & Output Reviewed Vital Signs: Yes Vital Signs: Vital Signs x48h Temp Pulse Pulse Resp BP Pulse Ox 04/24/19 10:00 71 22 108/74 99 04/24/19 09:26 36.7 C 82 18 100 04/24/19 09:00 82 18 120/73 99 04/24/19 08:00 36.7 C 68 20 117/68 100 04/24/19 07:00 70 17 109/60 100 04/24/19 06:00 64 17 110/66 100 04/24/19 05:00 36.5 C 72 18 104/59 L 100 04/24/19 04:06 67 22 108/79 100 04/24/19 03:00 36.5 C 81 18 125/83 H 99 Intake & Output: Intake & Output 04/21/19 04/22/19 04/23/19 04/24/19 23:59 23:59 23:59 23:59 Intake Total 790 4498.000 800.000 Output Total 3315 875 Balance 790 1183.000 -75.000 - Objective General Appearance: positive: No acute distress, Alert Eyes Bilateral: positive: PERRL, EOMI ENT: positive: Pharynx nml Neck: positive: No JVD Respiratory: positive: Chest non-tender. negative: Wheezes, Rales, Rhonchi Cardiovascular: positive: Irregularly irregular, Systolic murmur. negative: Gallop/S4, Friction rub Abdomen: positive: Non-tender, No organomegaly, Nml bowel sounds, No distention Skin: positive: Warm, Dry Extremities: positive: Non-tender, No pedal edema, Other (Scott stinson on. No evide nce of any of his previous cellulitis from the 03/27-03/30 admit) Neurologic/Psychiatric: positive: Oriented x3, CN's nml (2-12), Motor nml - Lab Results Fish Bones: 04/24/19 04:15 04/24/19 04:15 Other Labs: Lab Results x24hrs 04/24/19 04/24/19 04/24/19 Range/Units 04:15 04:15 04:15 WBC 11.8 H (4.8-10.8) x10^3/uL RBC 2.58 L (4.70-6.10) 10^6/uL Hgb 8.2 L (14.0-18.0) g/dL Hct 25.1 L (42.0-52.0) % MCV 97.3 H (80.0-94.0) fL MCH 31.8 H (27.0-31.0) pg MCHC 32.7 (32.0-36.0) g/dL RDW 17.5 H (12.0-15.0) % Plt Count 184 (130-450) 10^3/uL MPV 9.3 (7.4-11.4) fL Neut # (Auto) 8.4 H (1.5-6.6) 10^3/uL Lymph # (Auto) 1.9 (1.5-3.5) 10^3/uL [place] # (Auto) 0.9 (0.0-1.0) 10^3/uL Eos # (Auto) 0.2 (0.0-0.7) 10^3/uL Baso # (Auto) 0.0 (0.0-0.1) 10^3/uL Absolute Nucleated RBC 0.00 x10^3/uL Nucleated RBC % 0.0 /100WBC PT 15.6 H (9.9-12.6) secs INR 1.4 H (0.8-1.2) Sodium 140 (135-145) mmol/L Potassium 4.0 (3.5-5.0) mmol/L Chloride 111 (101-111) mmol/L Carbon Dioxide 25 (21-32) mmol/L Anion Gap 4.0 L (6-13) BUN 21 H (6-20) mg/dL Creatinine 0.8 (0.6-1.2) mg/dL Estimated GFR (MDRD) 93 (>89) Glucose 91 (70-100) mg/dL Calcium 8.0 L (8.5-10.3) mg/dL Blood Type Antibody Screen Crossmatch IS Only 04/23/19 04/23/19 04/23/19 Range/Units 18:43 18:43 10:44 WBC 11.7 H (4.8-10.8) x10^3/uL RBC 2.25 L (4.70-6.10) 10^6/uL Hgb 9.2 L 7.5 L (14.0-18.0) g/dL Hct 22.9 L (42.0-52.0) % MCV 101.8 H (80.0-94.0) fL MCH 33.3 H (27.0-31.0) pg MCHC 32.8 (32.0-36.0) g/dL RDW 16.4 H (12.0-15.0) % Plt Count 186 (130-450) 10^3/uL MPV 9.2 (7.4-11.4) fL Neut # (Auto) 8.5 H (1.5-6.6) 10^3/uL Lymph # (Auto) 2.1 (1.5-3.5) 10^3/uL [place] # (Auto) 0.8 (0.0-1.0) 10^3/uL Eos # (Auto) 0.0 (0.0-0.7) 10^3/uL Baso # (Auto) 0.0 (0.0-0.1) 10^3/uL Absolute Nucleated RBC 0.00 x10^3/uL Nucleated RBC % 0.0 /100WBC PT 15.8 H (9.9-12.6) secs INR 1.4 H (0.8-1.2) Sodium (135-145) mmol/L Potassium (3.5-5.0) mmol/L Chloride (101-111) mmol/L Carbon Dioxide (21-32) mmol/L Anion Gap (6-13) BUN (6-20) mg/dL Creatinine (0.6-1.2) mg/dL Estimated GFR (MDRD) (>89) Glucose (70-100) mg/dL Calcium (8.5-10.3) mg/dL Blood Type Antibody Screen Crossmatch IS Only 04/22/19 Range/Units 16:20 WBC (4.8-10.8) x10^3/uL RBC (4.70-6.10) 10^6/uL Hgb (14.0-18.0) g/dL Hct (42.0-52.0) % MCV (80.0-94.0) fL MCH (27.0-31.0) pg MCHC (32.0-36.0) g/dL RDW (12.0-15.0) % Plt Count (130-450) 10^3/uL MPV (7.4-11.4) fL Neut # (Auto) (1.5-6.6) 10^3/uL Lymph # (Auto) (1.5-3.5) 10^3/uL [place] # (Auto) (0.0-1.0) 10^3/uL Eos # (Auto) (0.0-0.7) 10^3/uL Baso # (Auto) (0.0-0.1) 10^3/uL Absolute Nucleated RBC x10^3/uL Nucleated RBC % /100WBC PT (9.9-12.6) secs INR (0.8-1.2) Sodium (135-145) mmol/L Potassium (3.5-5.0) mmol/L Chloride (101-111) mmol/L Carbon Dioxide (21-32) mmol/L Anion Gap (6-13) BUN (6-20) mg/dL Creatinine (0.6-1.2) mg/dL Estimated GFR (MDRD) (>89) Glucose (70-100) mg/dL Calcium (8.5-10.3) mg/dL Blood Type O NEGATIVE Antibody Screen NEGATIVE Crossmatch IS Only See Detail ABX Reporting Has patient been on IV antibiotics over the past 48 hours?: No Assessment/Plan - Problem List (1) GI (gastrointestinal hemorrhage) Impression: he was placed in observation with anticipation that we would reverse his INR and send him home. 04/23 am unstable bleed symptoms. CT angio without source of bleeding. He has received FFP and units of PRBC over the first and second hospital day, today (3rd) doing so much better. General Surgery consult note appreciated. No intervention from them at this time. Plan: changed to inpatient status 04/23 am Has been NPO and I will start regular diet today case discussed with patient Qualifiers: GI bleed type/associated pathology: melena Qualified Code(s): K92.1 - Melena (2) Supratherapeutic INR resolved Impression: From coumadin and antibiotic reaction. resolved with FFP and vit K (3) Chronic atrial fibrillation, stable Impression: not on anticoagulation. pulse starting to come up. resumed betablocker 04/23. I will discuss the case with his Dietary Aide Teacher. Not sure if we can resume anticoagulation in view of recent hemorrhage. Dr. Elizabeth is not in today and Dr. Ramirez is donor center technician for him. I have left a message with details of case on [phone] and asked for a call back. (4) Idiopathic cardiomyopathy Impression: last EF has been normal as of 03/2019. He is tolerating the fluids we are giving him. other than resuming his betablocker, will hold off on using diuretics for now
[2019-04-24] MEDS: POLYETHYLENE GLYCOL 3350 17 GM PACKET PO SCH (10:50)
--- NOTE | 2019-04-24 10:59 | ADVANCE CARE PLANNING NOTE ---
Advance Care Planning - Planning Encounter Date: 04/24/19 Time: 09:00 Purpose: because of multiple co-morbidities, explore what he feels is most important in his physical health Parties in Attendance: Hospitalist, his nurse, patient Decisional Capacity of the Patient: intact, alert/oriented/lucid - Diagnosis for Encounter (1) GI (gastrointestinal hemorrhage) Qualifiers: GI bleed type/associated pathology: melena Qualified Code(s): K92.1 - Melena Summary: He has chronic atrial fibrillation. He has a documented left atrial appendage last year that lingered for quite some time. Because of that left atrial appendage a watchman procedure was canceled. He was placed on Coumadin in 2014 when the patient felt that the risk of treatment was outweighed by the benefit of treatment. This was in context of 2 previous GI bleeds in 2000 and 2011. He is now had a severe GI bleed. The risk and benefits of Coumadin therapy need to be weighed again. With this in mind, I wanted to explore what the patient felt was a good quality of life as we move forward. - Encounter Subjective/Patient's Story: He was born and raised in the [facility]. However, because of his professional career, he lived in the [facility] for many decades. 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 He lived in [place] and covered [employer], [employer], [employer], [employer], etc. 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 It is now called [employer]. He then retired to live on [address] with his . They live in their own home. She owns a [employer] shop on [address] in [place]. 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 At first he would drive to [place] to do the shows for [employer]. Then they started doing them out [facility]. After he had a subdural hematoma as a complication of Coumadin therapy, he felt like he may have some cognitive deficits and was very anxious about making a mistake on air. He never did. 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 But he gave it up because the anxiety of making a mistake caught up with him and it wasn't worth it. He is an avid news hound. He loves discussing the pros and cons of politics, history, etc. Above all else, he wants his mind to remained intact. His biggest fear in life is that he would have a "locked in syndrome" where his brain is completely active but his body would fail him and he would be unable to communicate with people. He saw movie about it once and has thought about it ever since. The worst he is ever felt was when he was with congestive heart failure in August 2017. At that time, he did not realize that his ejection fraction was terrible. He thought that his atrial fibrillation was limiting. It was not until Dr. Elizabeth sat down with him and told him how his ventricle was in October 2017 that he put the picture together. But he is improved so much since then, that who he is today is not the person he was back then. He defines his quality of life through his intelligence. The interaction with people. The ability to dialogue and argue. He does not relish the idea of slowly becoming disabled to the point that he is bedbound or chair bound. He is still able to drive his car. Drives his to work every day at her [employer] shop. He does laundry, washes the dishes, is independent with activities of daily living. But if all of that were to go away, and he would bedbound, he would reluctantly live with it, as long as his mind was intact. Once he is no longer able to be lucid, with a good memory, to be able to process politics, writing, reading, he feels that it is time to "pull the plug". Objective/Medical Story: He is an 84-year-old white male who is being hospitalized for a GI bleed. His comorbid conditions include chronic atrial fibrillation requiring Coumadin. He has a documented left atrial appendage clot on 2 separate echoes, including transesophageal echo in the spring 2017. A watchman procedure was opted not to be done because of those clots. He has an idiopathic cardiomyopathy that initially had an ejection fraction of 20% in August 2017. It is improved to 60% by March 2019. Add to this to previous episodes of GI bleed before this episode. His first episode of GI bleed was in 2000. Colonoscopy did not reveal a source. Second colonoscopy with surveillance colonoscopy in December 2011. That showed only diverticulosis. A few weeks later he had another GI bleed. He has never had an upper endoscopy. At that time general surgery and [facility] gastroenterology did not feel his symptoms warranted an upper endoscopy. Coumadin was not started until 2014 by his primary care provider when the risk versus benefit of stroke occurred. This is 3 years before his left atrial appendage. He had no symptoms of GI bleeding until this admission when he comes in with severe GI bleeding and a drop of hemoglobin to 6. This is in context of a gentleman who was admitted for sepsis in March 2019. He was treated with antibiotics. Those were continued in the outpatient setting. He also takes melatonin and allopurinol which can prolong INR. Add to that that he did not get his INR checked since discharge because of system fallout between his PCP office and [facility] and cardiology office. With his GI bleed his INR was greater than 10. He is now received packed units of red cells, many units of FFP, and vitamin K. His GI bleeding is stopped. His INR is now controlled. It is now time to consider whether he is going to go back on Coumadin in the face of GI bleed. Goals of Care: 1. Outpatient evaluation with gastroenterology. He will need a relatively urgent upper and lower endoscopy, followed by possible pill endoscopy to formally identify the source of his bleeding. Options at that point will need to be discussed because of his comorbid factors. His NSQUIP score is calculated as quite high if he were ever to need surgical intervention. 2. Outpatient evaluation with Cardiolgy. This is in the face of a gentleman who no longer has an atrial clot on March 2019 echo. But he already shows increased risk by having persistent atrial clot in spite of anticoagulation in the late winter 2016 into spring 2017. 3. To honor his idea of what constitutes a good life for him. He values his intelligence and his ability to communicate above all else. He wants everything done to keep him alive and will do surgeries, transfusions, admissions to that end but if he loses his ability to think and speak clearly, let him go. Plan: 1. 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 Cardiology feels he should go back on anticoagulation as soon as possible because of his risk of embolic stroke. But a GI evaluation must occur urgently. 2. I will call [facility] gastroenterology to get him evaluated as soon as possible, and to risk stratify his risk of continued bleeding if we can identify his source 3. Discharge in his usual medications of rate control Code Status: Attempt Resuscitation Time spent on advance care plannin
[2019-04-24] MEDS: ALLOPURINOL 100 MG TABLET PO SCH (11:11)
[2019-04-24] MEDS: CARVEDILOL 3.125 MG TABLET PO SCH ×2 (11:12→21:05)
[2019-04-24] MEDS: NYSTATIN POWDER 15 GM TOP SCH ×2 (11:16→21:07)
[2019-04-24] MEDS ORDERED: MELATONIN 3 MG PO PRN (18:14)
[2019-04-24] MEDS: MAGNESIUM OXIDE 400 MG TABLET PO SCH (21:05)
[2019-04-25 04:56] LABS: INR 1.5 (0.8-1.2); PT - PROTHROMBIN TIME 16.7 secs (9.9-12.6)
[2019-04-25 08:04] VITALS: BP 114/60
[2019-04-25] MEDS: ALLOPURINOL 100 MG TABLET PO SCH (08:05)
[2019-04-25] MEDS: CARVEDILOL 3.125 MG TABLET PO SCH (08:06)
[2019-04-25] MEDS: MAGNESIUM OXIDE 400 MG TABLET PO SCH (08:06)
[2019-04-25] MEDS: PANTOPRAZOLE 40 MG VIAL IVP SCH (08:06)
[2019-04-25] MEDS: POLYETHYLENE GLYCOL 3350 17 GM PACKET PO SCH (08:09)
--- NOTE | 2019-04-25 08:18 | Discharge Plan ---
Discharge Plan Problem Reviewed?: Yes Disposition: Home, Self Care Condition: Stable Prescriptions: Pantoprazole [Protonix] 40 mg PO DAILY #30 tablet Diet: Low Sodium Activity Restrictions: Activity as Tolerated Shower Restrictions: No Driving Restrictions: No (You came to our emergency room because of bright red blood per rectum as we) Instruction Topics: Pantoprazole injection Health Concerns: You came to our emergency room with bright red blood per rectum and bloody stool. When you were in the emergency room you had 2 more episodes of bleeding. The previous episodes of bleeding were associated with completely normal colonoscopies other than you had diverticulosis. In the midst of all of this you were diagnosed with congestive heart failure and atrial fibrillation. In 2018 you were identified as having to clots in the upper left chamber of your heart. As such a watchman procedure was canceled. Coumadin had been started in 2014 in association with the atrial fibrillation. When you came to our hospital your INR was greater than 10 in association with the Coumadin and previous use of antibiotics, melatonin, and allopurinol. All of those drugs can prolong your INR. Plan of Treatment: 1. For the GI hemorrhage, we watched you carefully. Unfortunately you did drop your blood counts. Normal amount of blood is 14 g of hemoglobin. You presented as 10 g to our emergency room. You dropped to 6 g. You needed transfusion of fresh frozen plasma and packed red cells. CT angiogram of the arteries of your abdomen did not show where the bleeding was coming from. 2. We opted to hold your medications for congestive heart failure since her blood pressure was low. You did pass out once when sitting up at the toilet. Care Goals: 1. A decision needs to be made when to resume your Coumadin. I spoke to your cardiology group. Dr. Elizabeth was not available but Dr. Ramirez was on-call for him. They would like you to be back on your Coumadin or anticoagulation as soon as possible. However we need to identify the source of your gastrointestinal hemorrhage first. 2. I have contacted [facility] gastroenterology. They were the group that saw you in 2011. You will be seeing them today in consultation. Then they will schedule you for the appropriate gastroenterology studies to identify the source of your bleeding. 3. Since we do not know the source of your bleeding, and I am (with an abundance of caution) treating you as an ulcer and keeping you on Protonix. 4. Do not resume your spironolactone or Lasix until April 27. 5. Do not resume your Coumadin until gastroenterology says it is safe to do so. Assessment: patient understands instructions and will follow thru No Smoking: If you smoke, Please STOP! Call for help. Follow-up with: Francisco Maya MD [Primary Care Provider] - Guido Elizabeth MD [Physician No Access] - Cortes Gaspar MD [Provider Admit Priv/Credential] -
[2019-04-25] MEDS: SODIUM CHLORIDE FLUSH 0.9% 10 ML SYRINGE IVP SCH (09:11)
[2019-04-25] MEDS: NYSTATIN POWDER 15 GM TOP SCH (09:12)
--- NOTE | 2019-04-25 12:20 | DISCHARGE SUMMARY ---
"Discharge Summary Discharge Date: 04/25/19 Condition at Discharge: Stable Discharge Disposition: 01 Home, Self Care - DIAGNOSES Discharge Diagnoses with Status of Each Condition: 1. Gastrointestinal hemorrhage with melena 2. Supratherapeutic INR 3. Chronic atrial fibrillation 4. Idiopathic cardiomyopathy 5. History of left atrial clot 6. Liver cyst on CT - HPI History of Present Illness: 84-year-old white male who presents with a large bloody bowel movement from home and has had 2 subsequent large bloody bowel movements in the emergency room. This is a gentleman who is on Coumadin for atrial fibrillation since 2014. He just was discharged with a diagnosis of sepsis from right lower extremity cellulitis March 30, 2019. Discharged on antibiotics, and he takes melatonin and allopurinol. All of those will prolong his INR. He has not has INR checked because of system process problem between his primary care provider office, his cardiology office, and the lab. He does have a history of GI bleed in 2000 and 2011. Both of them were associated with colonoscopies that showed diverticulosis but nothing else. He is never had an EGD. He has negative ROS for gastric ulcer disease. Doesn't smoke, doesn't drink and no NSAID. He was seen in the emergency room where he was initially normotensive at 145/74. Pulse 91. However as he continued to have larger bloody bowel movements and his pressure dropped to 102/72. Pulse stayed in the 70s and 80s.Initial hemoglobin on admission was 10.7 g. Hematocrit 34.2. INR was greater than 10. Pro time was greater than 120 seconds. He is now admitted for GI bleed with a supratherapeutic INR - CONSULTS | PROCEDURES Procedures: 1. Transfusion of 4 units of leukocyte reduced RBCs and 5 units of fresh frozen plasma. 2. Abdomen pelvis CT angiogram. Extensive atherosclerotic arterial calcifications. No aneurysm. He is mesenteric plexus arteries are patent. Mild cardiomegaly at the lung bases. Scattered liver cysts. Slightly larger left adrenal nodule. Mild soft tissue stranding versus volume averaging and motion artifact adjacent to the upper gastric body and fundus. No diverticulitis. A large 18.7 cm right liver lobe cyst. It was previously 12.9 cm on May 30, 2015. Questionable biliary cystadenoma or cystadenocarcinoma. No source of active bleeding. There may be some hemorrhaging within his liver cyst. - HOSPITAL COURSE Hospital Course: He was placed in the ICU for GI bleed. He eventually dropped his hemoglobin to 6.5 with continued bloody bowel movements. Had an episode of syncope when he sat up on the toilet, bedside commode. He received 4 units of packed cells. And 5 units of fresh frozen plasma. Hemoglobin came back up to 9.2. And then,before discharge, had drifted down to 8.2. INR was 1.5 on the day of discharge, off of Coumadin. General surgery consult saw the patient. At this time surgical or endoscopic intervention was not indicated. It was felt that the continued risk of anticoagulation had to weigh against the risk of no anticoagulation in this patient who is now had 3 GI bleeds, a subdural hematoma. Versus a patient who is also been documented with a left atrial clot on echocardiogram and transesoph ageal echo in 2018. It was felt that the patient was a very high surgical risk if surgical control of the bleeding was required. In other words, the risk of surgery was higher than the risk of stopping his anticoagulation. If surgery was indicated for whatever we found, the [facility] review of his condition indicated a 56.8% risk of serious complication with a 68.6 risk of complication. Cardiac complication was 24.3% with the risk of 57.2%. As such, I contacted cardiology to discuss the case with them. The patient's usual cherry picker operator is Dr. Elizabeth through [facility] cardiology. Dr. Elizabeth was not available but his colleague, Dr. Ramirez, promptly called me. They do feel that the patient warrants anticoagulation but not until we identify the source of his bleeding and then risk stratify the source/treatment of his bleeding. I subsequently called [facility] Gastroenterology group. They are the the group that saw this patient in 2011. I spoke to Dr. Gaspar. He has expeditiously provided the patient with a consultation on April 25. They will then do the GI evaluation. This may include an repeat upper and lower endoscopy as well as video endoscopy. I have asked the patient to refrain from taking his Lasix and spironolactone for the next 2 days. I also asked him to check his blood pressure daily and if his blood pressure is low, consistently below 110/120 to abstain from losartan. If he feels dizzy or lightheaded to refrain from his blood pressure medicine. I am putting him on empiric Protonix. I really do not know the source of his bleeding but it could be upper GI. He is not to resume Coumadin until cleared by GI. The patient is discharged in stable condition. He is weak and tired but alert and oriented. Temperature is 36.4, pulse 63, blood pressure 100/71. Respirations 20. He is no longer lightheaded or dizzy when he stands up or sits to go to the bathroom. His bowel movements a longer bloody. He is tolerated a regular diet for 3 meals. Lungs are clear. He has a regular rate and rhythm. He supposed to be in A. fib. EKG documents that but I hear a regular rate and rhythm. The abdomen is soft, hypoactive bowel sounds, nontender. No distention. His extremities have [place] no edema. Where he had a cellulitis of his right lower extremity in March, there is no sign of it. There is no hyperpigmentation. No redness no heat. Greater than 30 minutes was spent in coordinating discharge. - ALLERGIES Allergies/Adverse Reactions: Allergies Allergy/AdvReac Type Severity Reaction Status Date / Time No Known Drug Allergies Allergy Verified 04/22/19 16:04 - MEDICATIONS Home Medications: Ambulatory Orders Medication Instructions Recorded Confirmed RX: Allopurinol 200 mg PO DAILY 04/28/14 04/22/19 RX: Furosemide 40 mg PO DAILY 03/26/19 04/22/19 RX: Carvedilol 3.125 mg PO BID 03/27/19 04/22/19 RX: Clotrimazole/Betamethasone Dip 1 applic TOP BID PRN 03/27/19 04/22/19 [Clotrimazole-Betamethasone [facility]] RX: Docusate Sodium 100 mg PO BID PRN 03/27/19 04/22/19 RX: Losartan [Cozaar] 50 mg PO QPM 03/27/19 04/22/19 RX: Magnesium Oxide 400 mg PO BID 03/27/19 04/22/19 RX: Melatonin 3 mg PO QPM PRN 03/27/19 04/22/19 RX: Nystatin 1 applic TOP BID 03/27/19 04/22/19 RX: Spironolactone 25 mg PO DAILY 03/27/19 04/22/19 RX: Doxazosin Mesylate 8 mg PO QPM 04/22/19 04/22/19 RX: Simvastatin 10 mg PO QPM 04/22/19 04/22/19 Pantoprazole [Protonix] 40 mg PO DAILY #30 tablet 04/25/19 - LABS Result Diagrams: 04/24/19 04:15 04/24/19 04:15"
== END 2019-04-25 09:15 | disposition home or self-care (01) | DRG 813 ==
LOC: ED 15:53 → MS2 17:18 → ICU 04-23 00:34 → OBSVTOIN 04-23 11:35
PROVIDERS: ADMIT Specialist; ATTEND Specialist
DX: D68.32 Hemorrhagic disorder due to extrinsic circulating anticoagulants (principal); K57.31 Diverticulosis of large intestine without perforation or abscess with bleeding; I42.9 Cardiomyopathy, unspecified; T45.515A Adverse effect of anticoagulants, initial encounter; I13.10 Hypertensive heart and chronic kidney disease without heart failure, with stage 1 through stage 4 chronic kidney disease, or unspecified chronic kidney disease; N18.3 Chronic kidney disease, stage 3 (moderate); D63.8 Anemia in other chronic diseases classified elsewhere; I42.0 Dilated cardiomyopathy; T36.95XA Adverse effect of unspecified systemic antibiotic, initial encounter; I08.3 Combined rheumatic disorders of mitral, aortic and tricuspid valves; E78.00 Pure hypercholesterolemia, unspecified; I73.9 Peripheral vascular disease, unspecified; C91.10 Chronic lymphocytic leukemia of B-cell type not having achieved remission; M10.9 Gout, unspecified; L97.529 Non-pressure chronic ulcer of other part of left foot with unspecified severity; Z79.01 Long term (current) use of anticoagulants; T50.4X5A Adverse effect of drugs affecting uric acid metabolism, initial encounter; Z66 Do not resuscitate; T38.895A Adverse effect of other hormones and synthetic substitutes, initial encounter; Y92.009 Unspecified place in unspecified non-institutional (private) residence as the place of occurrence of the external cause; I48.2 Chronic atrial fibrillation; Z87.891 Personal history of nicotine dependence; R55 Syncope and collapse; I95.9 Hypotension, unspecified; I50.9 Heart failure, unspecified; L97.519 Non-pressure chronic ulcer of other part of right foot with unspecified severity; M20.41 Other hammer toe(s) (acquired), right foot; K76.89 Other specified diseases of liver; Z79.899 Other long term (current) drug therapy; Z86.718 Personal history of other venous thrombosis and embolism; Z87.2 Personal history of diseases of the skin and subcutaneous tissue; Z86.79 Personal history of other diseases of the circulatory system; Z86.19 Personal history of other infectious and parasitic diseases
CPT/HCPCS: 36415; 36430; 74174; 80048; 80053; 83690; 85018; 85025; 85610; 85730; 86850; 86900; 86901; 86920; 87150; 96361; 96374; 96375; 96376; 99285; A9270; G0378; P9016; P9017; Q9967

== ENCOUNTER 2019-05-12 08:00 | Outpatient (CLI) | payer MEDICARE, OTHER ==
[2019-05-12 12:23] LABS: BASOPHILS % (AUTO) 0.4 %; EOSINOPHILS # (AUTO) 0.1 10^3/uL (0.0-0.7); EOSINOPHILS % (AUTO) 1.5 %; HGB - HEMOGLOBIN 10.2 g/dL (14.0-18.0); LYMPHOCYTES # (AUTO) 1.6 10^3/uL (1.5-3.5); LYMPHOCYTES % (AUTO) 23.4 %; MEAN CORPUSCULAR HEMOGLOBIN 33.1 pg (27.0-31.0); MEAN CORPUSCULAR HGB CONC 30.5 g/dL (32.0-36.0); MEAN CORPUSCULAR VOLUME 108.4 fL (80.0-94.0); MEAN PLATELET VOLUME 10.2 fL (7.4-11.4); MONOCYTES # (AUTO) 0.6 10^3/uL (0.0-1.0); MONOCYTES % (AUTO) 8.9 %; NEUTROPHILS # (AUTO) 4.4 10^3/uL (1.5-6.6); NEUTROPHILS % (AUTO) 64.9 %; PLT - PLATELET COUNT 215 10^3/uL (130-450); RED BLOOD COUNT 3.08 10^6/uL (4.70-6.10); RED CELL DISTRIBUTION WIDTH 17.2 % (12.0-15.0); WHITE BLOOD COUNT 6.8 x10^3/uL (4.8-10.8)
[2019-05-12 12:58] LABS: ALBUMIN 3.4 g/dL (3.2-5.5); ALBUMIN/GLOBULIN RATIO 1.2 (1.0-2.2); ALKALINE PHOSPHATASE 68 IU/L (42-121); ALT ALANINE AMINOTRANSFERASE 14 IU/L (10-60); AST ASPARTATE AMINOTRANSFERASE 16 IU/L (10-42); BILIRUBIN,TOTAL 0.7 mg/dL (0.2-1.0); BUN - BLOOD UREA NITROGEN 25 mg/dL (6-20); CALCIUM 8.7 mg/dL (8.5-10.3); CARBON DIOXIDE - CO2 26 mmol/L (21-32); CHLORIDE 103 mmol/L (101-111); CHOL/HDL RATIO 2.6 (<5.0); CHOLESTEROL 136 mg/dL; GFR - MDRD 72 (>89); GLUCOSE 94 mg/dL (70-100); HDL CHOLESTEROL 52 mg/dL; SODIUM 137 mmol/L (135-145); TOTAL PROTEIN 6.3 g/dL (6.7-8.2)
[2019-05-12 13:24] LABS: % IRON SATURATION 22 % (20-50); IRON 60 ug/dL (45-182); TOTAL IRON BINDING CAPACITY 274 ug/dL (250-450); TRANSFERRIN 196 mg/dL (180-329)
== END 2019-05-12 08:01 | disposition home or self-care (01) ==
LOC: LAB.WCP 08:00
PROVIDERS: ATTEND Family Medicine
DX: I12.9 Hypertensive chronic kidney disease with stage 1 through stage 4 chronic kidney disease, or unspecified chronic kidney disease (principal); N18.3 Chronic kidney disease, stage 3 (moderate); I42.9 Cardiomyopathy, unspecified; D64.9 Anemia, unspecified; I48.0 Paroxysmal atrial fibrillation; S91.109D Unspecified open wound of unspecified toe(s) without damage to nail, subsequent encounter
CPT/HCPCS: 36415; 80053; 80061; 82607; 83540; 83721; 83921; 84443; 84466; 85025

== ENCOUNTER 2019-05-14 08:00 | Outpatient (CLI) | payer MEDICARE, OTHER | END 2019-05-14 23:59 | disposition home or self-care (01) | LOC: LAB.WCP 08:00 | PROVIDERS: ATTEND Family Medicine | DX: D64.9 Anemia, unspecified (principal) | CPT/HCPCS: 83921 ==

== ENCOUNTER 2020-01-12 07:35 | Outpatient (CLI) | payer MEDICARE, OTHER ==
[2020-01-12 12:12] LABS: BASOPHILS # (AUTO) 0.1 10^3/uL (0.0-0.1); BASOPHILS % (AUTO) 0.7 %; EOSINOPHILS # (AUTO) 0.1 10^3/uL (0.0-0.7); EOSINOPHILS % (AUTO) 0.9 %; HGB - HEMOGLOBIN 12.6 g/dL (14.0-18.0); LYMPHOCYTES # (AUTO) 1.8 10^3/uL (1.5-3.5); LYMPHOCYTES % (AUTO) 20.7 %; MEAN CORPUSCULAR HEMOGLOBIN 34.1 pg (27.0-31.0); MEAN CORPUSCULAR VOLUME 103.5 fL (80.0-94.0); MEAN PLATELET VOLUME 10.6 fL (7.4-11.4); MONOCYTES # (AUTO) 0.7 10^3/uL (0.0-1.0); MONOCYTES % (AUTO) 7.6 %; NEUTROPHILS # (AUTO) 5.9 10^3/uL (1.5-6.6); NEUTROPHILS % (AUTO) 69.3 %; PLT - PLATELET COUNT 187 10^3/uL (130-450); RED BLOOD COUNT 3.69 10^6/uL (4.70-6.10); RED CELL DISTRIBUTION WIDTH 13.9 % (12.0-15.0); WHITE BLOOD COUNT 8.6 x10^3/uL (4.8-10.8)
[2020-01-12 13:21] LABS: ALBUMIN 3.6 g/dL (3.2-5.5); ALBUMIN/GLOBULIN RATIO 1.4 (1.0-2.2); CALCIUM 8.7 mg/dL (8.5-10.3); TOTAL PROTEIN 6.2 g/dL (6.7-8.2)
== END 2020-01-12 23:59 | disposition home or self-care (01) ==
LOC: LAB.WCP 07:35
PROVIDERS: ATTEND Family Medicine
DX: N18.3 Chronic kidney disease, stage 3 (moderate) (principal); I27.20 Pulmonary hypertension, unspecified; D64.9 Anemia, unspecified
CPT/HCPCS: 36415; 80053; 84443; 85025

== ENCOUNTER 2020-08-02 07:36 | Outpatient (CLI) | payer MEDICARE, OTHER ==
[2020-08-02 11:49] LABS: BASOPHILS % (AUTO) 0.5 %; EOSINOPHILS # (AUTO) 0.1 10^3/uL (0.0-0.7); EOSINOPHILS % (AUTO) 1.6 %; HGB - HEMOGLOBIN 12.8 g/dL (14.0-18.0); LYMPHOCYTES # (AUTO) 1.7 10^3/uL (1.5-3.5); LYMPHOCYTES % (AUTO) 21.1 %; MEAN CORPUSCULAR HEMOGLOBIN 33.6 pg (27.0-31.0); MEAN CORPUSCULAR HGB CONC 32.2 g/dL (32.0-36.0); MEAN CORPUSCULAR VOLUME 104.5 fL (80.0-94.0); MEAN PLATELET VOLUME 10.5 fL (7.4-11.4); MONOCYTES # (AUTO) 0.6 10^3/uL (0.0-1.0); MONOCYTES % (AUTO) 7.9 %; NEUTROPHILS # (AUTO) 5.4 10^3/uL (1.5-6.6); PLT - PLATELET COUNT 186 10^3/uL (130-450); RED BLOOD COUNT 3.81 10^6/uL (4.70-6.10); RED CELL DISTRIBUTION WIDTH 14.1 % (12.0-15.0)
[2020-08-02 12:21] LABS: ALBUMIN/GLOBULIN RATIO 1.4 (1.0-2.2); ALKALINE PHOSPHATASE 74 IU/L (42-121); ALT ALANINE AMINOTRANSFERASE 23 IU/L (10-60); AST ASPARTATE AMINOTRANSFERASE 21 IU/L (10-42); BILIRUBIN,TOTAL 0.9 mg/dL (0.2-1.0); BUN - BLOOD UREA NITROGEN 28 mg/dL (6-20); CARBON DIOXIDE - CO2 24 mmol/L (21-32); CHLORIDE 105 mmol/L (101-111); CHOL/HDL RATIO 3.1 (<5.0); CHOLESTEROL 148 mg/dL; GLUCOSE 91 mg/dL (70-100); HDL CHOLESTEROL 48 mg/dL; LDL CHOLESTEROL,CALCULATED 88 mg/dL; LDL/HDL RATIO 1.8 (<3.6); SODIUM 135 mmol/L (135-145); TOTAL PROTEIN 6.9 g/dL (6.7-8.2); VLDL CHOLESTEROL 12 mg/dL
== END 2020-08-02 23:59 | disposition home or self-care (01) ==
LOC: LAB.WCP 07:36
PROVIDERS: ATTEND Internal Medicine
DX: N18.30 Chronic kidney disease, stage 3 unspecified (principal); I42.9 Cardiomyopathy, unspecified
CPT/HCPCS: 36415; 80053; 80061; 83721; 84443; 85025

== ENCOUNTER 2020-12-15 07:26 | Outpatient (CLI) | payer MEDICARE, OTHER ==
--- NOTE | 2020-12-15 10:11 | XRAY Report ---
PROCEDURE: Foot 3 View LT INDICATIONS: L FOOT INFECTION TECHNIQUE: 3 views of the foot were acquired. COMPARISON: None. FINDINGS: Bones: No acute fractures or dislocations. No suspicious bony lesions. No focal cortical destructi on is seen to suggest osteomyelitis radiographically. Hammertoe alignment of the talus is noted. A pr ominent posterior calcaneal enthesophyte is seen in the right is a small plantar calcaneal enthesophy te. There is a small os peroneum. Soft tissues: Arterial vascular calcifications are present. Mild soft tissue edema is seen in the geovanny t. IMPRESSION: No acute osseous abnormality. No definite cortical destruction is seen to suggest osteomyelitis radio graphically. If there is continued clinical concern, further evaluation may be obtained with MRI. Reviewed by: Joel Bellamy MD on 12/15/2020 10:10 AM PDT Approved by: Joel Bellamy MD on 12/15/2020 10:10 AM PDT Station ID: [id number]
== END 2020-12-15 23:59 | disposition home or self-care (01) ==
LOC: DI.N 07:26
PROVIDERS: ATTEND Family Medicine
DX: L08.9 Local infection of the skin and subcutaneous tissue, unspecified (principal)

== ENCOUNTER 2021-03-19 14:23 | Outpatient (CLI) | payer MEDICARE, OTHER | END 2021-03-19 14:24 | disposition EMS.NT | LOC: EMS 14:23 | DX: S51.012A Laceration without foreign body of left elbow, initial encounter (principal); S80.211A Abrasion, right knee, initial encounter; W01.0XXA Fall on same level from slipping, tripping and stumbling without subsequent striking against object, initial encounter; Y93.E9 Activity, other interior property and clothing maintenance; Y92.008 Other place in unspecified non-institutional (private) residence as the place of occurrence of the external cause ==

== ENCOUNTER 2021-03-19 15:16 | Emergency (ER) | payer MEDICARE, OTHER ==
[2021-03-19] MEDS ORDERED: KETOROLAC 30 MG/ML VIAL IM STA (16:33)
--- NOTE | 2021-03-19 16:40 | ED Physician Documentation ---
PD HPI Fall - Stated complaint Stated Complaint: GLF - Chief complaint Chief Complaint: Laceration - History obtained from History obtained from: Patient, Family - History of Present Illness Mechanism of injury: Tripped Fall distance: Standing position Where injury occurred: Home Timing - onset: Today Injury(ies) location: Right Upper Extremity, Right Lower Extremity Associated symptoms: No: LOC, AMS, Amnesia, Seizures, Ear drainage, Nasal drainage, Neck pain, Weakness, Paresthesias, Dyspnea, Nausea / vomiting, Hematemesis, Abdominal distension Symptoms improve with: Rest Contributing factors: Anticoagulated. No: Intoxicated Similar symptoms before: Diagnosis (head bleed) Recently seen: Not recently seen - Additional information Additional information: 86-year-old male on [email or web address] was stopping some cardboard today and when he walked across the cardboard to bring it to his truck he tripped on the cardboard and fell forward. He did not injure his head specifically. He has some abrasion to his knee and to his elbow and he has some pain in his lower back. He states the pain in his lower back is similar to what he gets if he lays down. He has some spinal stenosis. He has a prior history of minor head trauma causing an issue with bleed and required transfer .He does not feel that he has any broken bones especially in his back and his only concern is potential head bleed. He indicates that previously when this happened he had only bumped his head against a cupboard, had some symptoms of floating arm on the left and eventually had CT done. Review of Systems Constitutional: denies: Fever Eyes: denies: Decreased vision Ears: denies: Ear pain Nose: denies: Congestion Throat: denies: Sore throat Cardiac: denies: Chest pain / pressure, Palpitations Respiratory: denies: Dyspnea, Cough GI: denies: Abdominal Pain, Nausea, Vomiting, Constipation, Diarrhea : denies: Dysuria, Frequency, Discharge Musculoskeletal: reports: Back pain. denies: Neck pain, Extremity pain Neurologic: denies: Generalized weakness, Focal weakness, Numbness, Headache, LOC PD PAST MEDICAL HISTORY - Past Medical History Cardiovascular: Congestive heart failure (EF 40-45%), Hypertension, High cholesterol, Atrial fibrillation (anticoagulated) Respiratory: None, Other (pulmonary htn) Neuro: Peripheral neuropathy, Other (hx subdural hematomas) Endocrine/Autoimmune: None GI: GI bleed (multiple associated with overanticoagulation) : Benign prostate hypertrophy Psych: None Musculoskeletal: Osteoarthritis, Gout, Other (spinal stenosis) Derm: None - Past Surgical History Past Surgical History: Yes General: Hiatal hernia repair Ortho: Hip replacement, Knee replacement, Amputation (right toe) Cardiovascular: Cardiac catheterization Neuro: Craniotomy HEENT: Tonsil/Adenoidectomy - Present Medications Home Medications: Ambulatory Orders Medication Instructions Recorded Confirmed allopurinoL [Allopurinol] 200 mg PO DAILY 04/28/14 04/22/19 Furosemide 40 mg PO DAILY 03/26/19 04/22/19 Clotrimazole/Betamethasone Dip 1 applic TOP BID PRN 03/27/19 04/22/19 [Clotrimazole-Betamethasone Crm] Docusate Sodium 100 mg PO BID PRN 03/27/19 04/22/19 Losartan [Cozaar] 50 mg PO QPM 03/27/19 04/22/19 Magnesium Oxide 400 mg PO BID 03/27/19 04/22/19 Melatonin 3 mg PO QPM PRN 03/27/19 04/22/19 Nystatin 1 applic TOP BID 03/27/19 04/22/19 Spironolactone 25 mg PO DAILY 03/27/19 04/22/19 carvediloL [Carvedilol] 3.125 mg PO BID 03/27/19 04/22/19 Doxazosin Mesylate 8 mg PO QPM 04/22/19 04/22/19 Simvastatin 10 mg PO QPM 04/22/19 04/22/19 Pantoprazole [Protonix] 40 mg PO DAILY #30 tablet 04/25/19 HYDROcod/ACETAM 5/325 [Witt 5/325] 1 - 2 tablet PO Q6H PRN #14 tablet 03/19/21 - Allergies Allergies/Adverse Reactions: Allergies Allergy/AdvReac Type Severity Reaction Status Date / Time No Known Drug Allergies Allergy Verified 03/19/21 15:37 - Social History Does the pt smoke?: No Smoking Status: Never smoker Does the pt drink ETOH?: No Does the pt have substance abuse?: No - Immunizations Immunizations are current?: No Immunizations: TDAP >10years/unknown - POLST Patient has POLST: No POLST Status: DNR PD ED PE NORMAL - Vitals Vital signs reviewed: Yes (hypertensive mild ) - General General: Alert and oriented X 3, No acute distress, Well developed/nourished - HEENT HEENT: Atraumatic, PERRL, EOMI - Neck Neck: Supple, no meningeal sign, No bony TTP - Cardiac Cardiac: RRR, No murmur - Respiratory Respiratory: No respiratory distress, Clear bilaterally - Abdomen Abdomen: Soft, Non tender - Back Back: No CVA TTP, No spinal TTP, Other (minimal tenderness to the lower lumbar spine. ) - Extremities Extremities: No deformity, No edema - Neuro Neuro: Alert and oriented X 3, peace officer 2-12 intact, No motor deficit, No sensory deficit, Normal speech Eye Opening: Spontaneous Motor: Obeys Commands Verbal: Oriented GCS Score: 15 - Psych Psych: Normal mood, Normal affect Results - Vitals Vitals: Vital Signs - 24 hr 03/19/21 03/19/21 15:37 17:49 Temperature 36.5 C 36.7 C Heart Rate 70 63 Respiratory 16 16 Rate Blood Pressure 144/76 H 117/68 O2 Saturation 98 100 Oxygen O2 Source Room air - Rads (name of study) ct HEAD Radiology: Prelim report reviewed (Impression: Atrophy and chronic ischemic change without acute intracranial hemorrhage or mass-effect. Left-sided craniotomy.), EMP read indepedently, See rad report PD MEDICAL DECISION MAKING - ED course Complexity details: reviewed old records, reviewed results, re-evaluated patient, considered differential, d/w patient, d/w family ED course: 86-year-old male on [employer] has had a jarring injury when he fell after tripping on cardboard and with his past history of intracranial hemorrhage he is concerned about the possibility of another hemorrhage. He does not think he has broken any bones does not think that his back pain is anything more significant than his usual pain. He states that if he were able to get up by himself he would have gotten up and continued with what he was doing but he is unable to get up off the ground by himself and required the ambulance to help him. Departure - Departure Disposition: 01 Home, Self Care Clinical Impression: Fall from ground level Abrasion of knee, right Qualifiers: Encounter type: initial encounter Qualified Code(s): S80.211A - Abrasion, right knee, initial encounter Back pain Qualifiers: Back pain location: low back pain Chronicity: chronic Back pain laterality: bilateral Sciatica presence: without sciatica Qualified Code(s): M54.5 - Low back pain Condition: Stable Instructions: ED Abrasion Follow-Up: Lalo Sierra MD [Primary Care Provider] - Prescriptions: HYDROcod/ACETAM 5/325 [Witt 5/325] 1 - 2 tablet PO Q6H PRN #14 tablet PRN Reason: Pain Discharge Date/Time: 03/19/21 17:51
[2021-03-19 17:50] VITALS: BP 117/68
--- NOTE | 2021-03-19 17:50 | CT Report ---
PROCEDURE: HEAD WO INDICATIONS: 86-year-old male patient on anticoagulation therapy status post fall. History of surgic ally evacuated subdural hematoma. TECHNIQUE: Noncontrast 4.5 mm thick angled axial sections acquired from the foramen magnum to the vertex. For r adiation dose reduction, the following was used: automated exposure control, adjustment of mA and/or kV according to patient size. COMPARISON: 05/10/2017 FINDINGS: Image quality: Excellent. CSF spaces: Basal cisterns are patent. No extra-axial fluid collections. Ventricles are normal in size and shape. Brain: Moderate atrophy and multifocal chronic ischemic change noted. No intracranial hemorrhage or recurrent subdural No midline shift. No intracranial masses or hemorrhage. Nathan-white matter interf capo is normal. Skull and face: Calvarium and visualized facial bones are intact, without suspicious lesions. Left f rontal craniotomy secured by titanium plates. Bilateral intraocular lens replacements noted. Sinuses: Visualized sinuses and mastoids are clear. IMPRESSION: . Atrophy and chronic ischemic change without acute intracranial hemorrhage or mass effect. Left-sided craniotomy Reviewed by: Jacob Weiss MD on 03/19/2021 4:49 PM AKDT Approved by: Jacob Weiss MD on 03/19/2021 4:49 PM AKDT Station ID: [id number]
== END 2021-03-19 17:51 | disposition home or self-care (01) ==
LOC: ED 15:16
DX: S80.211A Abrasion, right knee, initial encounter (principal); M54.5 Low back pain; W01.0XXA Fall on same level from slipping, tripping and stumbling without subsequent striking against object, initial encounter; Y93.89 Activity, other specified; Y92.009 Unspecified place in unspecified non-institutional (private) residence as the place of occurrence of the external cause; Z79.01 Long term (current) use of anticoagulants; Z86.79 Personal history of other diseases of the circulatory system; I67.82 Cerebral ischemia
CPT/HCPCS: 96372; 99284

== ENCOUNTER 2021-07-18 15:18 | Outpatient (CLI) | payer MEDICARE, OTHER ==
[2021-07-18 18:30] LABS: CALCIUM 8.8 mg/dL (8.5-10.3); CREATININE 1.1 mg/dL (0.6-1.2); POTASSIUM 4.6 mmol/L (3.5-5.0)
[2021-07-18 20:31] LABS: ESTIMATED AVERAGE GLUCOSE 105 mg/dL (70-100); HEMOGLOBIN A1c% 5.3 % (4.27-6.07)
== END 2021-07-18 15:19 | disposition home or self-care (01) ==
LOC: LAB.N 15:18
PROVIDERS: ATTEND Internal Medicine
DX: G62.9 Polyneuropathy, unspecified (principal); R73.01 Impaired fasting glucose
CPT/HCPCS: 36415; 80048; 82607; 83036

== ENCOUNTER 2021-11-26 10:33 | Outpatient (CLI) | payer MEDICARE, OTHER ==
--- NOTE | 2021-11-26 11:46 | XRAY Report ---
PROCEDURE: Knee 2 View LT INDICATIONS: DJD, LEFT KNEE TECHNIQUE: 2 views of the left knee(s) were acquired. COMPARISON: 05/10/2016 FINDINGS: Bones: No fractures or dislocations. No suspicious bony lesions. There is severe narrowing and craig inal osteophyte noted involving the medial and patellofemoral compartment. Mild lateral compartmental joint space narrowing. Advanced diffuse atherosclerotic vascular calcification noted. Soft tissues: Small joint effusion. No suspicious soft tissue calcifications. IMPRESSION: 1. Moderate to severe osteoarthritis and small joint effusion Reviewed by: Jacob Weiss MD on 11/26/2021 10:45 AM SULMA Approved by: Jacob Weiss MD on 11/26/2021 10:45 AM AKASHER Station ID: [id number]
== END 2021-11-26 10:34 | disposition home or self-care (01) ==
LOC: DI.N 10:33
PROVIDERS: ATTEND Internal Medicine
DX: M17.12 Unilateral primary osteoarthritis, left knee (principal); M25.462 Effusion, left knee

== ENCOUNTER 2022-01-18 06:00 | Outpatient (CLI) | payer MEDICARE, OTHER ==
--- NOTE | 2022-01-18 19:49 | XRAY Report ---
PROCEDURE: Knee 3 View LT INDICATIONS: LEFT KNEE PAIN TECHNIQUE: 3 views of the left knee(s) were acquired. COMPARISON: 11/26/2021 FINDINGS: Bones: No fractures or dislocations. Progressive advanced degenerative arthritis of the left knee, w ith compartment joint space obliteration and lateral subluxation of the tibia relative to the femur. No suspicious bony lesions. Soft tissues: No joint effusion. No suspicious soft tissue calcifications. IMPRESSION: Advanced progressive degenerative arthritis of the left knee. Progression occurred over a short period of time. Reviewed by: Robert Edwards MD on 01/18/2022 7:48 PM PDT Approved by: Robert Edwards MD on 01/18/2022 7:48 PM PDT Station ID: [id number]
== END 2022-01-18 23:59 | disposition home or self-care (01) ==
LOC: DI.WOS 06:00
PROVIDERS: ATTEND Physician Assistant
DX: M17.12 Unilateral primary osteoarthritis, left knee (principal)

== ENCOUNTER 2022-04-20 07:19 | Outpatient (CLI) | payer MEDICARE, OTHER ==
[2022-04-20 11:53] LABS: BASOPHILS % (AUTO) 0.4 %; EOSINOPHILS # (AUTO) 0.1 10^3/uL (0.0-0.7); EOSINOPHILS % (AUTO) 1.8 %; HCT - HEMATOCRIT 36.2 % (42.0-52.0); LYMPHOCYTES % (AUTO) 27.8 %; MEAN CORPUSCULAR HEMOGLOBIN 35.2 pg (27.0-31.0); MEAN CORPUSCULAR HGB CONC 33.1 g/dL (32.0-36.0); MEAN CORPUSCULAR VOLUME 106.2 fL (80.0-94.0); MEAN PLATELET VOLUME 10.9 fL (7.4-11.4); MONOCYTES # (AUTO) 0.6 10^3/uL (0.0-1.0); MONOCYTES % (AUTO) 8.1 %; NEUTROPHILS # (AUTO) 4.3 10^3/uL (1.5-6.6); NEUTROPHILS % (AUTO) 61.6 %; PLT - PLATELET COUNT 148 10^3/uL (130-450); RED BLOOD COUNT 3.41 10^6/uL (4.70-6.10); RED CELL DISTRIBUTION WIDTH 14.2 % (12.0-15.0)
[2022-04-20 12:08] LABS: ALBUMIN/GLOBULIN RATIO 1.7 (1.0-2.2); ALKALINE PHOSPHATASE 69 IU/L (42-121); ALT ALANINE AMINOTRANSFERASE 22 IU/L (10-60); AST ASPARTATE AMINOTRANSFERASE 20 IU/L (10-42); BUN - BLOOD UREA NITROGEN 21 mg/dL (6-20); CALCIUM 9.2 mg/dL (8.5-10.3); CARBON DIOXIDE - CO2 28 mmol/L (21-32); CHLORIDE 105 mmol/L (101-111); CHOL/HDL RATIO 2.8 (<5.0); CHOLESTEROL 115 mg/dL; CREATININE 1.1 mg/dL (0.6-1.2); GFR - MDRD 64 (>89); GLUCOSE 89 mg/dL (70-100); HDL CHOLESTEROL 41 mg/dL; POTASSIUM 4.9 mmol/L (3.5-5.0); SODIUM 140 mmol/L (135-145); TOTAL PROTEIN 6.4 g/dL (6.7-8.2); TRIGLYCERIDES 32 mg/dL
[2022-04-20 14:17] LABS: THYROID STIMULATING HORMONE 3.41 uIU/mL (0.34-5.60)
[2022-04-20 16:43] LABS: ESTIMATED AVERAGE GLUCOSE 103 mg/dL (70-100); HEMOGLOBIN A1c% 5.2 % (4.27-6.07)
== END 2022-04-20 07:20 | disposition home or self-care (01) ==
LOC: LAB.N 07:19
PROVIDERS: ATTEND Internal Medicine
DX: I42.8 Other cardiomyopathies (principal); E78.5 Hyperlipidemia, unspecified; E53.8 Deficiency of other specified B group vitamins; R73.01 Impaired fasting glucose; I48.21 Permanent atrial fibrillation
CPT/HCPCS: 36415; 80053; 80061; 82607; 83036; 83721; 84443; 85025

== ENCOUNTER 2022-09-20 11:00 | Outpatient (CLI) | payer MEDICARE, OTHER | END 2022-09-20 23:45 | disposition E | LOC: EMS 11:00 | DX: I46.9 Cardiac arrest, cause unspecified (principal) | CPT/HCPCS: A0425; A0428 ==